=== PATIENT | male | born 1945 | race Caucasian/White ===

== ENCOUNTER → 2017-10-20 10:02 | Outpatient (CLI) | payer OTHER, SELFPAY ==
--- NOTE | 2017-10-20 10:04 | DI.RAD.S_ITS ---
PROCEDURE: XR FOOT RT MIN 3V INDICATIONS: right foot pain after fall TECHNIQUE: 3 views of the foot were acquired. COMPARISON: None. FINDINGS: Bones: No fractures or dislocations. No suspicious bony lesions. Soft tissues: No tibiotalar joint effusion. Achilles tendon appears normal. IMPRESSION: No trauma found. If there is clinical concern for presence of hidden fracture follow-up by delayed plain films or advanced imaging, such as CT or MRI, could be obtained. The normal superimposition of multiple osseous margins in this area reduces the study's ability to detect nondisplaced fractures. Dictated by: Juan Nunez M.D. on 10/20/2017 at 10:38 Approved by: Juan Nunez M.D. on 10/20/2017 at 10:39
== END ==
PROVIDERS: PCP Family Medicine; Visit Provider Family Medicine
DX: M79.671 Pain in right foot (principal)
CPT/HCPCS: 73630

== ENCOUNTER → 2018-02-04 07:11 | Outpatient (CLI) | payer OTHER, SELFPAY ==
[2018-02-04 09:11] LABS: Add Manual Diff / Slide Review NO; Basophils Percent Auto 0.8 % (0-2); Eosinophils Percent Auto 3.1 % (2-4); Hematocrit 45.2 % (41-53); Hemoglobin 15.5 g/dL (13.5-17.5); Lymphocytes Percent Auto 20.1 % (25-40); Mean Corpuscular HGB Conc 34.3 % (30-36); Mean Corpuscular Hemoglobin 31.9 PG (26-34); Monocytes Percent Auto 10.9 % (3-14); Neutrophils Absolute Auto 3300 /uL (3000-5900); Neutrophils Percent Auto 65.1 % (50-75); Platelet Count 216 X10^3/uL (150-400); Red Blood Cell Count 4.86 X10^6/uL (4.5-5.9); White Blood Cell Count 5.1 X10^3/uL (4.5-11.0)
[2018-02-04 09:40] LABS: Blood Urea Nitrogen 18 mg/dL (9-20); Calcium 9.1 mg/dL (8.4-10.2); Carbon Dioxide 29 mmol/L (22-32); Chloride 105 mmol/L (98-107); Cholesterol 142 mg/dL (140-199); Estimated Glomerular Filt Rate > 60.0 mL/min (>60); Glucose 103 mg/dL (80-110); HDL Cholesterol 63 mg/dL (40-60); HEMOLYSIS < 15 (0-50); LDL Cholesterol Calculated 65 mg/dL (<100); Potassium 4.2 mmol/L (3.4-5.1); Sodium 144 mmol/L (137-145); Triglycerides 70 mg/dL (35-150); Uric Acid 5.6 mg/dL (3.5-8.5)
[2018-02-04 09:59] LABS: Prostate Specific Antigen Scrn 6.96 ng/mL (0.1-4.0)
== END ==
PROVIDERS: PCP Family Medicine; Visit Provider Family Medicine
DX: E78.2 Mixed hyperlipidemia (principal)
CPT/HCPCS: 36415; 80048; 80061; 84443; 84550; 85025; G0103

== ENCOUNTER → 2018-08-19 12:56 | Outpatient (CLI) | payer OTHER, SELFPAY ==
--- NOTE | 2018-08-19 | DI.MRI.S_ITS ---
PROCEDURE: MR SHOULDER RT WO CON INDICATIONS: Unspecified disorder of synovium and tendon, right TECHNIQUE: Noncontrast oblique coronal T2 fast spin echo with fat saturation, oblique sagittal T1 spin echo and T2 fast spin echo with fat saturation, axial T1 spin echo and T2 fast spin echo with fat saturation through the shoulder. COMPARISON: [facility], MR, SHOULDER WITHOUT CONTRAST, 01/05/2015, 8:26. FINDINGS: Image quality: Excellent. Rotator cuff: There is full-thickness rupture of distal supraspinatus and anterior to mid fibers of the distal infraspinatus at their insertion on greater tuberosity with medial retraction of torn tendon fibers to the level of the acromioclavicular joint. Tendinosis and moderate-grade articular surface partial-thickness tear involving most posterior fibers of distal infraspinatus is seen. Tendinosis and moderate grade intrasubstance partial thickness involving distal subscapularis is seen. Sagittal images demonstrate mild to moderate supraspinatus and infraspinatus muscle atrophy. Bones and bursae: Moderate acromioclavicular joint and glenohumeral joint osteoarthritis is seen. Moderate amount of glenohumeral joint fluid and subacromial subdeltoid bursal fluid is present. Capsule and soft tissues: In the absence of intra-articular contrast, degenerative changes throughout labrum is seen. No definite focal labral tear. The glenohumeral ligaments appear intact. The long head of the biceps tendon demonstrates normal location and morphology. The rotator interval appears normal, without fibrosis. The coracohumeral ligament is normal in thickness. IMPRESSION: 1. Full-thickness rupture of distal supraspinatus and anterior to mid fibers of distal infraspinatus at their insertion on humeral head with medial retraction of torn tendon fibers to the level of acromioclavicular joint. Tendinosis and moderate grade intrasubstance partial thickness involving distal subscapularis. Mild to moderate supraspinatus and infraspinatus muscle atrophy. 2. Moderate acromioclavicular joint and glenohumeral joint osteoarthritis. No fracture or dislocation. Small to moderate amount of joint effusion and subacromial subdeltoid bursal fluid. 3. Degenerative changes throughout labrum with no definite focal labral tear. Dictated by: Ac Epps M.D. on 08/19/2018 at 14:44 Approved by: Ac Epps M.D. on 08/19/2018 at 14:55
== END ==
PROVIDERS: PCP Family Medicine; Visit Provider Orthopaedic Surgery
DX: M75.121 Complete rotator cuff tear or rupture of right shoulder, not specified as traumatic (principal); M19.011 Primary osteoarthritis, right shoulder; M25.411 Effusion, right shoulder
CPT/HCPCS: 73221

== ENCOUNTER → 2019-01-10 12:37 | Outpatient (CLI) | payer OTHER, SELFPAY ==
[2019-01-10 15:18] LABS: Prostate Specific Antigen 8.27 ng/mL (0.10-4.00)
== END ==
PROVIDERS: PCP Family Medicine; Visit Provider Urology
DX: Z12.5 Encounter for screening for malignant neoplasm of prostate (principal)
CPT/HCPCS: 36415; 84153

== ENCOUNTER → 2019-03-09 10:11 | Outpatient (CLI) | payer OTHER, SELFPAY ==
--- NOTE | 2019-03-09 10:15 | DI.RAD.S_ITS ---
PROCEDURE: XR LUMBAR SPINE 2-3V INDICATIONS: low back pain TECHNIQUE: 3 views of the lumbar spine were acquired. COMPARISON: [facility], , L-SPINE 2-3 VIEWS, 05/27/2010, 13:07. FINDINGS: Bones: 5 [id number] vertebrae are present. There is normal bony alignment. No vertebral body compression fractures. No suspicious bony lesions. Progression of disc loss at the L4-5 level, now moderate. Severe disc height loss at L5-S1, stable. Facet hypertrophy and sclerosis in the lumbar spine have mildly progressed. Soft tissues: Overlying bowel gas pattern is normal. Questionable intrarenal calcifications project over the lower pole of the right kidney.. IMPRESSION: Progressive disc and facet degeneration in the lower lumbar spine. Possible intrarenal calcifications. Correlate clinically and consider CT KUB. Dictated by: Hansa Reza M.D. on 03/09/2019 at 15:09 Approved by: Hansa Reza M.D. on 03/09/2019 at 15:11
== END ==
PROVIDERS: Family Provider Family Medicine; PCP Family Medicine; Visit Provider Nurse Practitioner Family
DX: M54.5 Low back pain (principal); M51.36 Other intervertebral disc degeneration, lumbar region; M51.37 Other intervertebral disc degeneration, lumbosacral region
CPT/HCPCS: 72100

== ENCOUNTER → 2019-03-14 16:46 | Outpatient (CLI) | payer OTHER, SELFPAY ==
--- NOTE | 2019-03-14 16:49 | DI.CT.S_ITS ---
PROCEDURE: CT KIDNEY URETER BLADDER (KUB) INDICATIONS: possible intrarenal calcification TECHNIQUE: Noncontrast 5 mm thick sections acquired from the diaphragms to the symphysis. 5 mm thick coronal and sagittal reformats were then performed. For radiation dose reduction, the following was used: automated exposure control, adjustment of mA and/or kV according to patient size. COMPARISON: [facility], CR, XR LUMBAR SPINE 2-3V, 03/09/2019, 10:18. FINDINGS: Image quality: Excellent. Lung bases: Lung bases are clear. Heart size is normal. Urinary system: No left-sided urolithiasis. Approximately 3 right renal calculi measuring up to 5 mm image 43 series 2. This may correlate with the patient's comparison study dated 03/09/19. No hydronephrosis. No perinephric stranding. Bilateral presumed renal cysts although some is technically too small and incomplete evaluation in the absence of IV contrast. No ureteral calculi identified. The bladder is partially collapsed although there is suspicion of circumferential mild bladder wall thickening however technically age-indeterminate finding. No bladder calculi Other solid organs: Presumed hepatic cysts or small hemangiomas within the left and right lobes, technically incomplete evaluation in the absence of IV contrast. Gallbladder contracted otherwise unremarkable. Pancreas is normal in contours. Spleen is normal in size. No adrenal nodules. Peritoneum and bowel: Unenhanced bowel loops demonstrate normal wall thickness and caliber. No free fluid or air. Normal appendix. Rectum grossly unremarkable. Nodes and vessels: No retroperitoneal or mesenteric adenopathy by size criteria. Aorta and inferior vena cava are normal in caliber. Abdominal wall: No ventral hernias. Pelvis: No free pelvic fluid. No inguinal hernias or adenopathy. Bones: No suspicious bony lesions. No vertebral body compression fractures. Multilevel spondylosis. IMPRESSION: Nonobstructed multiple right renal calculi measuring up to 5 mm. No left-sided urolithiasis. Circumferential mild bladder wall thickening raising possibility of cystitis although technically age-indeterminate and recommend correlation with urinalysis data. Further evaluation could be performed with cystoscopy as clinically indicated. Additional chronic and incidental findings as above. Dictated by: Sp Petersen M.D. on 03/15/2019 at 8:26 Approved by: Sp Petersen M.D. on 03/15/2019 at 8:37
== END ==
PROVIDERS: Family Provider Family Medicine; PCP Family Medicine; Visit Provider Nurse Practitioner Family
DX: R93.89 Abnormal findings on diagnostic imaging of other specified body structures (principal); N20.0 Calculus of kidney
CPT/HCPCS: 74176

== ENCOUNTER → 2019-04-29 07:41 | Outpatient (CLI) | payer OTHER, SELFPAY ==
[2019-05-03 14:51] LABS: PSA Free % 9 % (calc) (> 25); PSA, Total 9.3 ng/mL (< 4.1)
== END ==
PROVIDERS: Family Provider Family Medicine; PCP Family Medicine; Visit Provider Urology
DX: R97.20 Elevated prostate specific antigen [PSA] (principal); Z98.890 Other specified postprocedural states; Z80.42 Family history of malignant neoplasm of prostate; Z12.5 Encounter for screening for malignant neoplasm of prostate
CPT/HCPCS: 36415; 84153; 84154

== ENCOUNTER → 2019-06-21 16:40 | Outpatient (CLI) | payer MEDICARE, SELFPAY ==
[2019-06-21 17:24] LABS: Blood Urea Nitrogen 23 mg/dL (9-20); Estimated Glomerular Filt Rate > 60.0 mL/min (>60)
== END ==
PROVIDERS: Family Provider Family Medicine; PCP Family Medicine; Referring Provider Urology; Visit Provider Urology
DX: C61 Malignant neoplasm of prostate (principal)
CPT/HCPCS: 36415; 82565; 84520

== ENCOUNTER → 2019-06-24 09:20 | Outpatient (CLI) | payer MEDICARE, SELFPAY ==
--- NOTE | 2019-06-24 09:24 | DI.CT.S_ITS ---
PROCEDURE: CT ABDOMEN PELVIS W CON INDICATIONS: PROSTATE CANCER TECHNIQUE: After the administration of oral and intravenous contrast, 5 mm thick sections acquired from the diaphragms to the symphysis. 5 mm thick coronal and sagittal reformats were performed. For radiation dose reduction, the following was used: automated exposure control, adjustment of mA and/or kV according to patient size. COMPARISON: [facility], CT, CT KIDNEY URETER BLADDER (KUB), 03/14/2019, 16:57. FINDINGS: Image quality: Excellent. ABDOMEN: Lung bases: Lung bases are clear. Heart size is normal. Solid organs: Liver is normal in size and enhancement. There are several sharply demarcated water density hepatic cysts and no solid hepatic mass lesion is found. Gallbladder is abnormally wall thickened, but uniformly approximately 5 mm in wall thickness with upper limits of normal 3 mm. No calcified gallstones within the gallbladder lumen or bile ducts are found, and no biliary distention is associated.. Biliary system is non-dilated. Pancreas enhances normally. Spleen is normal in size and enhancement. No adrenal nodules. Kidneys are normal in size and enhancement, without hydronephrosis. A 4 x 7 mm previously present nonobstructive calculus within the the middle third collecting system of the right kidney is again seen, with approximate internal radiodensity of 740 Hounsfield units. Peritoneum and bowel: Stomach, small bowel, and colon loops are normal in caliber and wall thickness. No free fluid or air. Nodes and vessels: No retroperitoneal or mesenteric adenopathy. Aorta and inferior vena cava are normal in caliber. Miscellaneous: No ventral hernias. PELVIS: Genitourinary: Bladder wall thickness is normal. The prostate gland is not enlarged, a malignant appearing mass emanating from the prostate and extending into adjacent fatty soft tissues is not seen. Miscellaneous: No inguinal hernias or adenopathy. Bones: No suspicious bony lesions. No vertebral body compression fractures. IMPRESSION: 1. Prostate gland appears normal in size and margination. 2. No adenopathy is found. 3. No osseous metastatic disease is seen or suspected. 4. Uncertain etiology 4 uniform 5 mm abnormal thickening of the gallbladder wall, without internal calcified gallstone or adjacent biliary distention identified. This may reflect chronic cholecystitis. Gallbladder ejection fraction assessment may be warranted and gallbladder ultrasound likely is warranted also. The prior CT from 03/14/19 did not include contrast enhancement and the gallbladder was partially contracted at that time. Therefore, accurate comparison is not possible to the prior study. 5. Previously present 4 x 7 mm urinary tract stones within the nondistended collecting system of the right kidney as discussed above, previously noted without obstruction during CT scanning in March of last year. Dictated by: Juan Nunez M.D. on 06/24/2019 at 15:04 Approved by: Juan Nunez M.D. on 06/24/2019 at 15:12
== END ==
PROVIDERS: Family Provider Family Medicine; PCP Family Medicine; Referring Provider Urology; Visit Provider Urology
DX: C61 Malignant neoplasm of prostate (principal); K76.89 Other specified diseases of liver; N20.0 Calculus of kidney
CPT/HCPCS: 74177; Q9967

== ENCOUNTER → 2019-11-02 07:19 | Outpatient (CLI) | payer MEDICARE, SELFPAY ==
[2019-11-03 06:51] LABS: PSA Ultrasensitive <0.014 ng/mL (0.000-4.000)
== END ==
PROVIDERS: Family Provider Family Medicine; PCP Family Medicine; Referring Provider Nurse Practitioner Family; Visit Provider Nurse Practitioner Family
DX: C61 Malignant neoplasm of prostate (principal)
CPT/HCPCS: 36415; 84153

== ENCOUNTER → 2019-11-14 16:16 | Outpatient (CLI) | payer MEDICARE, SELFPAY ==
[2019-11-15 09:46] LABS: COVID19 Sendout Not Detected (Not Detect)
== END ==
PROVIDERS: Family Provider Family Medicine; PCP Family Medicine; Visit Provider Student in an Organized Health Care Education/Training Program
DX: Z01.812 Encounter for preprocedural laboratory examination (principal)
CPT/HCPCS: 87635

== ENCOUNTER → 2019-12-22 09:29 | Outpatient (CLI) | payer MEDICARE, SELFPAY ==
[2019-12-22 11:00] LABS: Prostate Specific Antigen < 0.064 ng/mL (0.10-4.00)
== END ==
PROVIDERS: Family Provider Family Medicine; PCP Family Medicine; Referring Provider Urology; Visit Provider Urology
DX: C61 Malignant neoplasm of prostate (principal)
CPT/HCPCS: 36415; 84153

== ENCOUNTER → 2020-01-17 08:12 | Outpatient (CLI) | payer MEDICARE, SELFPAY ==
[2020-01-17 09:34] LABS: Cholesterol 147 mg/dL (140-199); HDL Cholesterol 54 mg/dL (40-60); LDL Cholesterol Calculated 71 mg/dL (<100); Triglycerides 108 mg/dL (35-150)
== END ==
PROVIDERS: Family Provider Family Medicine; PCP Family Medicine; Referring Provider Family Medicine; Visit Provider Family Medicine
DX: E78.2 Mixed hyperlipidemia (principal)
CPT/HCPCS: 36415; 80061

== ENCOUNTER 2020-03-21 11:15 | Outpatient (RCR) | payer MEDICARE, SELFPAY ==
--- NOTE | 2020-02-21 09:39 | PT.OIE ---
Current Diagnoses Malignant neoplasm of prostate (02/15/20) Stress incontinence (female) (male) (02/15/20) Past Medical History (Last Reviewed 02/15/20 @ 11:08 by REMA Vivar) Chicken pox (Resolved 1951) Foot pain (Chronic 2016) Fractures (Resolved 1964) Hayfever (Chronic 1969) Hemorrhoids (Resolved 2001) Herpes (Resolved 1970) Macular pucker, left eye (Resolved 2016) Measles (Resolved 1951) Mumps (Resolved 1950) Nocturnal hypoxemia (Chronic) Obesity (BMI 30-39.9) (Chronic) Obstructive sleep apnea (Chronic) Osteoarthritis (Chronic 2009) Precancerous skin lesion (Resolved 2016) Shoulder pain (Chronic 2015) Tinnitus (Chronic 1984) Past Surgical History (Last Reviewed 02/15/20 @ 11:08 by REMA Vivar) Anesthesia (Resolved) History of eye surgery (Resolved 2016) History of hernia repair (Resolved 03/2013) History of hernia repair (Resolved 03/2012) Status post rotator cuff repair (Resolved 2015) Status post wrist surgery (Resolved 1967) Status post wrist surgery (Resolved 1994) Visit Care Team Role Provider Type Mario Miller MD Family Provider Physician Primary Care Provider Specialty: Family Practice Address: [address] [place] [address], [facility] Email: [email or web address] Michael Wesley MD Attending Provider Non-Staff Referring Provider Specialty: Medical Address: [address] [place] [address], Section of Urology, [place], [place], [facility] Email: Physical Therapy Initial Evaluation PT-OP-A Visit Information Start: 02/15/20 11:10 Freq: Status: Active Protocol: Document 02/15/20 11:12 [facility] (Rec: 02/15/20 11:13 [facility] [email or web address]) Out-Patient Physical Therapy Visit Information Visit Information Visit Type Initial Evaluation Visit Start Time 11:15 Visit Stop Time 12:00 Total Visit Minutes 45 Visit Number 1 Evaluation Information Evaluation Date 02/15/20 PT-OP-B Current Condition Start: 02/15/20 11:10 Freq: Status: Active Protocol: Document 02/15/20 11:15 [facility] (Rec: 02/15/20 11:38 [facility] [id number]) Current Condition History of Current Condition Onset Date Sep 21 2019 Current Complaints urinary stress incontinence History of Current Condition 73 year old male with urinary stress incontinence secondary to prostate cancer and robotic prostatectomy. In December he was going through 6 pads per day and he was doing a good amount of caffiene at that time. He has switched to just water and milk and eliminated the caffiene and this has significantly changed his symptoms. Leakage has been drastically improved. Currently he is leaking with big movements, bending over to pick something up he can leak , climbing activities cause leakage. Bending movements, laughing and sneezing also create leakage. He uses approximately 4 pads per day. He sleeps 6 hours and wakes up to void. He has been doing pelvic floor exercises laying down in the moring and night but hasn't done a lot in standing yet.. When he showers and puts his foot up on the step he will leak in the shower. Treatment Goals Patient/Caregiver Goals Goals include decreasing overall leakge with activity Current Functional Impairments (Reported) Functional Limitations- ADL's leakage with activities that include bending over to continuous pickling line pickler helper a object off the ground and climbing activities PT-OP-I Pelvic Floor Start: 02/15/20 11:10 Freq: Status: Active Protocol: Document 02/15/20 11:15 [facility] (Rec: 02/21/20 09:34 [facility] [email or web address]) Pelvic Floor Assessment Urine Pelvic Floor Surgery Yes Other Urinary Symptoms urinary stress incontinence following prostatectomy Leakage Size Large Leakage Cause Cough,Exercise,Lifting,Sneeze Leaks Per Day constantly with activity Voiding Frequency 6 times per day Nocturia 1-2 times Pads Used In 24 Hours 4 Urine Pad Type Maxi Pad Comments Pelvic Floor Comments Emili is able to facilitate a pelvic floor contraction however it is weak and limited to a few seconds only. He is not able to engage his pelvic floor in standing positions PT-OP-J Posture/Palpation/Skin Start: 02/15/20 11:10 Freq: Status: Active Protocol: Document 02/15/20 11:15 [facility] (Rec: 02/21/20 09:38 [facility] [email or web address]) Palpation Assessment Location suprapubic fascia Palpation Location suprapubic fascia Palpation Findings Soft Tissue Tightness Palpation Details tightness and restrictions in the suprapubic fascia. PT-OP-M Strength Start: 02/15/20 11:10 Freq: Status: Active Protocol: Document 02/15/20 11:15 [facility] (Rec: 02/21/20 09:37 [facility] [email or web address]) Trunk Strength Trunk Manual Muscle Testing Flexion 3 Fair Core Stabilization poor activation of the transverse abdominal muscles with + ASLR test, it is difficult for Emili to palpate the transverse abdominal muscle, level 1 a lower abdominal progression is difficult for Emili to perform. Hip Strength Hip Manual Muscle Testing Right Abduction 4 Good External Rotation 4 Good Left Abduction 4- Good- External Rotation 4 Good PT-OP-Q Treatments Start: 02/15/20 11:10 Freq: Status: Active Protocol: Document 02/15/20 14:03 [facility] (Rec: 02/15/20 14:04 [facility] [email or web address]) Therapeutic Exercises Sitting Exercises sit to stand Sitting Exercise Name pelvci floor contraction with sit-stand Reps/Minutes x 10 reps Other Exercises pelvic floor long holds Other Exercise Name pelvic floor long holds working up to 10 second hold time Side bilateral Reps/Minutes 10 seconds on 10 seconds off Comments pt to work supine and sitting PT-OP-T Assessment and Plan Start: 02/15/20 11:10 Freq: Status: Active Protocol: Document 02/15/20 11:15 [facility] (Rec: 02/21/20 09:19 [facility] [email or web address]) Physical Therapy Assessment Rehab Potential Rehabilitation Potential Good Evaluation Complexity Number of Personal Factors/Comorbidities 0 Number of Body Systems Impaired 1-2 Clinical Presentation at Evaluation Stable Impairments Impairments Activity Tolerance,Functional Activities,Strength Other Impairments urinary stress incontinence, pelvic floor and core weakness Goals urinary leakge with activites such as bending, squatting, climbing Impairment Urinary leakage with activities such as squatting, bending, and climbing Short Term Goal (STG) Emili is able to demonstrate pelvic floor and abdominal stabilization with proper lifting techniques to avoid undo stress to his bladder STG Duration 4 weeks Christian Education Director Goal (LTG) Emili reports overall decrease in leakage with activites such asd sit-stand, squat, and climbing. He is able to decrease pad use from 4 pads per day to 0-1 pads per day LTG Duration 8 weeks Decreased strength of the transverse abdominal musculature Impairment Decreased strength of the transverse abdominal musculature Christian Education Director Goal (LTG) Emili is able to maintain core stabilization with dynamic movements LTG Duration 8 weeks Decreased endurance of the pelvic floor Impairment Decreased endurance of the pelvic floor musculature Short Term Goal (STG) Emili is able to sustain a pelvic floor contraction in the supine position fo 10 seconds STG Duration 4 weeks Group Home Goal (LTG) Emili is able to sustain a pelvic floor contraction in standing for 10 seconds LTG Duration 8 weeks Assessment Summary Assessment Emili is a 74 year old male referred to PT today s/o prostatectomy with urinary leakage. His surgery was September 2019 for robotic prostatectomy . Emili reports he was having a considerable amount of leakage following his surgery. Per his MD's advise he cut back on all the caffiene he was consuming and this has made a really big difference for him. He is now mainly experiencing leagage in standing positions and with activities throughout the day. These activites include bending over continuous pickling line pickler helper a object off the ground, climbing, laughing and sneezing. He is using approximately 4 pads per day at this time. He reports sleeping approximately 6 hours then waking to void. He reports he has worked on pelvic floor exercises in a supine position but has not progressed to standing pelvic floor contractions. With examination today Emili is able to contract his pelvic floor but has difficulty sustaining a contraction for any length of time. He is weak in his transverse abdominal musculature. He leaks with positional changes such as sit-stand. Treatment for Emili will focus on core stability, pelvic floor endurance training and progressing his pelvic floor exercises to sitting and standing functional positions. Emili is a good candidate for PT Physical Therapy Plan Frequency and Duration Frequency of Treatment 1x/Week Duration of Treatment 8 Plan of Care Start Date 02/15/20 Plan of Care End Date 04/11/20 Therapeutic Interventions Therapeutic Interventions Home Exercise Program, Neuromuscular Re-education, Patient/Caregiver Education, Self-Care/Home Management, Therapeutic Activities, Therapeutic Exercises Modalities Biofeedback,Electric Stimulation Next Visit Focus/Plan Next Note Type Treatment Note Next Visit Plan Begin EMG biofeedback next visit, endurance strenghening of the pelvic floor, pelvic floor bracing with specific activities that cause leakage.
--- NOTE | 2020-02-21 09:40 | PT.OPPOC ---
Physical, Occupational & Speech Therapy At [facility] Current Diagnoses Malignant neoplasm of prostate (02/15/20) Stress incontinence (female) (male) (02/15/20) Visit Care Team Role Provider Type Mario Miller MD Family Provider Physician Primary Care Provider Specialty: Family Practice Address: [address] [place] [address], [id number] Email: [email or web address] Michael Wesley MD Attending Provider Non-Staff Referring Provider Specialty: Medical Address: [address] [place] [address], Section of Urology, [place], [address] Email: Plan Of Care PT-OP-T Assessment and Plan Start: 02/15/20 11:10 Freq: Status: Active Protocol: Document 02/15/20 11:15 [facility] (Rec: 02/21/20 09:19 [facility] [email or web address]) Physical Therapy Assessment Rehab Potential Rehabilitation Potential Good Evaluation Complexity Number of Personal Factors/Comorbidities 0 Number of Body Systems Impaired 1-2 Clinical Presentation at Evaluation Stable Impairments Impairments Activity Tolerance,Functional Activities,Strength Other Impairments urinary stress incontinence, pelvic floor and core weakness Goals urinary leakge with activites such as bending, squatting, climbing Impairment Urinary leakage with activities such as squatting, bending, and climbing Short Term Goal (STG) Emili is able to demonstrate pelvic floor and abdominal stabilization with proper lifting techniques to avoid undo stress to his bladder STG Duration 4 weeks Custodial Goal (LTG) Emili reports overall decrease in leakage with activities such as sit-stand, squat, and climbing. He is able to decrease pad use from 4 pads per day to 0-1 pads per day LTG Duration 8 weeks Decreased strength of the transverse abdominal musculature Impairment Decreased strength of the transverse abdominal musculature Mixer Machine Feeder Goal (LTG) Emili is able to maintain core stabilization with dynamic movements LTG Duration 8 weeks Decreased endurance of the pelvic floor Impairment Decreased endurance of the pelvic floor musculature Short Term Goal (STG) Emili is able to sustain a pelvic floor contraction in the supine position for 10 seconds STG Duration 4 weeks Custodial Goal (LTG) Emili is able to sustain a pelvic floor contraction in standing for 10 seconds LTG Duration 8 weeks Assessment Summary Assessment Emili is a 74 year old male referred to PT today s/o prostatectomy with urinary leakage. His surgery was September 2019 for robotic prostatectomy . Emili reports he was having a considerable amount of leakage following his surgery. Per his MD's advise he cut back on all the caffeine he was consuming and this has made a really big difference for him. He is now mainly experiencing leakage in standing positions and with activities throughout the day. These activities include bending over pick and shovel man a object off the ground, climbing, laughing and sneezing. He is using approximately 4 pads per day at this time. He reports sleeping approximately 6 hours then waking to void. He reports he has worked on pelvic floor exercises in a supine position but has not progressed to standing pelvic floor contractions. With examination today Emili is able to contract his pelvic floor but has difficulty sustaining a contraction for any length of time. He is weak in his transverse abdominal musculature. He leaks with positional changes such as sit-stand. Treatment for Emili will focus on core stability, pelvic floor endurance training and progressing his pelvic floor exercises to sitting and standing functional positions. Emili is a good candidate for PT Physical Therapy Plan Frequency and Duration Frequency of Treatment 1x/Week Duration of Treatment 8 Plan of Care Start Date 02/15/20 Plan of Care End Date 04/11/20 Therapeutic Interventions Therapeutic Interventions Home Exercise Program, Neuromuscular Re-education, Patient/Caregiver Education, Self-Care/Home Management, Therapeutic Activities, Therapeutic Exercises Modalities Biofeedback,Electric Stimulation Next Visit Focus/Plan Next Note Type Treatment Note Next Visit Plan Begin EMG biofeedback next visit, endurance strengthening of the pelvic floor, pelvic floor bracing with specific activities that cause leakage. Plan of Care Dates Plan of Care Start Date 02/15/20 Plan of Care End Date 04/11/20 Electronically Signed by: Arianna Berry, PT 02/21/20 [id number] Please Sign and Return: I have reviewed this Plan of Care and certify that the skilled therapy services above are required to meet the patient?s needs. Physician Signature Date Printed Name and Credentials Clinical Instructor Signature Printed Name and Credentials
--- NOTE | 2020-02-22 13:47 | PT.OTN ---
Current Diagnoses Malignant neoplasm of prostate (02/22/20) Stress incontinence (female) (male) (02/22/20) Physical Therapy Treatment Note PT-OP-A Visit Information Start: 02/15/20 11:10 Freq: Status: Active Protocol: Document 02/22/20 13:36 [facility] (Rec: 02/22/20 13:47 [facility] [id number]) Out-Patient Physical Therapy Visit Information Visit Information Visit Type Treatment Note Visit Start Time 11:30 Visit Stop Time 12:00 Total Visit Minutes 30 Visit Number 2 Evaluation Information Evaluation Date 02/15/20 PT-OP-B Current Condition Start: 02/15/20 11:10 Freq: Status: Active Protocol: Document 02/15/20 11:15 [facility] (Rec: 02/15/20 11:38 [facility] [id number]) Current Condition History of Current Condition Onset Date Sep 21 2019 Current Complaints urinary stress incontinence History of Current Condition 73 year old male with urinary stress incontinence secondary to prostate cancer and robotic prostatectomy. In December he was going through 6 pads per day and he was doing a good amount of caffiene at that time. He has switched to just water and milk and eliminated the caffiene and this has significantly changed his symptoms. Leakage has been drastically improved. Currently he is leaking with big movements, bending over to pick something up he can leak , climbing activities cause leakage. Bending movements, laughing and sneezing also create leakage. He uses approximately 4 pads per day. He sleeps 6 hours and wakes up to void. He has been doing pelvic floor exercises laying down in the moring and night but hasn't done a lot in standing yet.. When he showers and puts his foot up on the step he will leak in the shower. Treatment Goals Patient/Caregiver Goals Goals include decreasing overall leakge with activity Current Functional Impairments (Reported) Functional Limitations- ADL's leakage with activities that include bending over to cloth picker a object off the ground and climbing activities PT-OP-C Subjective Start: 02/15/20 11:10 Freq: Status: Active Protocol: Document 02/22/20 13:36 [facility] (Rec: 02/22/20 13:47 [facility] [email or web address]) OP-PT Subjective Patient Comments Patient Comments Pt reports he has felt the urge to void this week and not as much leakage PT-OP-I Pelvic Floor Start: 02/15/20 11:10 Freq: Status: Active Protocol: Document 02/15/20 11:15 [facility] (Rec: 02/21/20 09:34 [facility] [email or web address]) Pelvic Floor Assessment Urine Pelvic Floor Surgery Yes Other Urinary Symptoms urinary stress incontinence following prostatectomy Leakage Size Large Leakage Cause Cough,Exercise,Lifting,Sneeze Leaks Per Day constantly with activity Voiding Frequency 6 times per day Nocturia 1-2 times Pads Used In 24 Hours 4 Urine Pad Type Maxi Pad Comments Pelvic Floor Comments Emili is able to facilitate a pelvic floor contraction however it is weak and limited to a few seconds only. He is not able to engage his pelvic floor in standing positions PT-OP-J Posture/Palpation/Skin Start: 02/15/20 11:10 Freq: Status: Active Protocol: Document 02/15/20 11:15 [facility] (Rec: 02/21/20 09:38 [facility] [email or web address]) Palpation Assessment Location suprapubic fascia Palpation Location suprapubic fascia Palpation Findings Soft Tissue Tightness Palpation Details tightness and restrictions in the suprapubic fascia. PT-OP-M Strength Start: 02/15/20 11:10 Freq: Status: Active Protocol: Document 02/15/20 11:15 [facility] (Rec: 02/21/20 09:37 [facility] [email or web address]) Trunk Strength Trunk Manual Muscle Testing Flexion 3 Fair Core Stabilization poor activation of the transverse abdominal muscles with + ASLR test, it is difficult for Emili to palpate the transverse abdominal muscle, level 1 a lower abdominal progression is difficult for Emili to perform. Hip Strength Hip Manual Muscle Testing Right Abduction 4 Good External Rotation 4 Good Left Abduction 4- Good- External Rotation 4 Good PT-OP-Q Treatments Start: 02/15/20 11:10 Freq: Status: Active Protocol: Document 02/22/20 13:36 [facility] (Rec: 02/22/20 13:47 [facility] [email or web address]) Therapeutic Exercises Supine Exercises iliopsoas stretch Supine Exercise Name iliopsoas stretch Comments cassius test position TA with heel slide Supine Exercise Name TA with heel slide Reps/Minutes x 10 2 Supine Exercise Name TA with Opposite arm over head lift Reps/Minutes x 20 1 Supine Exercise Name TA with marches Reps/Minutes x 20 Prone Exercises sphinx pose Prone Exercise Name sphinx pose Reps/Minutes 5 reps Comments hold up to 30 seconds Sitting Exercises sit to stand Sitting Exercise Name pelvci floor contraction with sit-stand Reps/Minutes x 2 reps Standing Exercises standing squat with pelvic floor Standing Exercise Name standing squats with pelvic floor activation on the return from stand Reps/Minutes x 15 Other Exercises quick pelvic floor contractions Other Exercise Name pelvic floor quick flicks Reps/Minutes x 10 reps pelvic floor long holds Other Exercise Name pelvic floor long holds working up to 10 second hold time Side bilateral Reps/Minutes 10 seconds on 10 seconds off Comments pt to work supine and sitting PT-OP-T Assessment and Plan Start: 02/15/20 11:10 Freq: Status: Active Protocol: Document 02/22/20 13:36 [facility] (Rec: 02/22/20 13:47 [facility] [email or web address]) Physical Therapy Assessment Assessment Summary Assessment Emili is happy with his progress this past week. He feels the abdominal stabilization is helping. I progresed this today as well as added in stretches for the hip flexors and lower abdominal wall. He is wanting to try EMG biofeedback next visit Physical Therapy Plan Next Visit Focus/Plan Next Note Type Treatment Note Next Visit Plan Begin EMG biofeedback next visit and review established ther ex.
--- NOTE | 2020-03-07 14:16 | PT.OTN ---
Current Diagnoses Malignant neoplasm of prostate (03/07/20) Stress incontinence (female) (male) (03/07/20) Physical Therapy Treatment Note PT-OP-A Visit Information Start: 02/15/20 11:10 Freq: Status: Active Protocol: Document 03/07/20 11:27 [facility] (Rec: 03/07/20 11:34 [facility] [id number]) Out-Patient Physical Therapy Visit Information Visit Information Visit Type Treatment Note Visit Start Time 11:30 Visit Stop Time 12:00 Total Visit Minutes 30 Visit Number 3 PT-OP-B Current Condition Start: 02/15/20 11:10 Freq: Status: Active Protocol: Document 02/15/20 11:15 [facility] (Rec: 02/15/20 11:38 [facility] [id number]) Current Condition History of Current Condition Onset Date Sep 21 2019 Current Complaints urinary stress incontinence History of Current Condition 73 year old male with urinary stress incontinence secondary to prostate cancer and robotic prostatectomy. In December he was going through 6 pads per day and he was doing a good amount of caffiene at that time. He has switched to just water and milk and eliminated the caffiene and this has significantly changed his symptoms. Leakage has been drastically improved. Currently he is leaking with big movements, bending over to pick something up he can leak , climbing activities cause leakage. Bending movements, laughing and sneezing also create leakage. He uses approximately 4 pads per day. He sleeps 6 hours and wakes up to void. He has been doing pelvic floor exercises laying down in the moring and night but hasn't done a lot in standing yet.. When he showers and puts his foot up on the step he will leak in the shower. 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 He can sit in the car for 5 hours and not void, he can sleep for 6 hours and not leak . But when he is up and about he has more leakage. PT-OP-I Pelvic Floor Start: 02/15/20 11:10 Freq: Status: Active Protocol: Document 02/15/20 11:15 [facility] (Rec: 02/21/20 09:34 [facility] [email or web address]) Pelvic Floor Assessment Urine Pelvic Floor Surgery Yes Other Urinary Symptoms urinary stress incontinence following prostatectomy Leakage Size Large Leakage Cause Cough,Exercise,Lifting,Sneeze Leaks Per Day constantly with activity Voiding Frequency 6 times per day Nocturia 1-2 times Pads Used In 24 Hours 4 Urine Pad Type Maxi Pad Comments Pelvic Floor Comments Emili is able to facilitate a pelvic floor contraction however it is weak and limited to a few seconds only. He is not able to engage his pelvic floor in standing positions PT-OP-J Posture/Palpation/Skin Start: 02/15/20 11:10 Freq: Status: Active Protocol: Document 02/15/20 11:15 [facility] (Rec: 02/21/20 09:38 [facility] [email or web address]) Palpation Assessment Location suprapubic fascia Palpation Location suprapubic fascia Palpation Findings Soft Tissue Tightness Palpation Details tightness and restrictions in the suprapubic fascia. PT-OP-M Strength Start: 02/15/20 11:10 Freq: Status: Active Protocol: Document 02/15/20 11:15 [facility] (Rec: 02/21/20 09:37 [facility] [email or web address]) Trunk Strength Trunk Manual Muscle Testing Flexion 3 Fair Core Stabilization poor activation of the transverse abdominal muscles with + ASLR test, it is difficult for Emili to palpate the transverse abdominal muscle, level 1 a lower abdominal progression is difficult for Emili to perform. Hip Strength Hip Manual Muscle Testing Right Abduction 4 Good External Rotation 4 Good Left Abduction 4- Good- External Rotation 4 Good PT-OP-Q Treatments Start: 02/15/20 11:10 Freq: Status: Active Protocol: Document 03/07/20 11:27 [facility] (Rec: 03/07/20 11:34 [facility] [id number]) Therapeutic Exercises Supine Exercises iliopsoas stretch Supine Exercise Name iliopsoas stretch Comments cassius test position TA with heel slide Supine Exercise Name TA with heel slide Reps/Minutes x 10 2 Supine Exercise Name TA with Opposite arm over head lift Reps/Minutes x 20 1 Supine Exercise Name TA with marches Reps/Minutes x 20 Other Exercises quick pelvic floor contractions Other Exercise Name with emg biofeedback Reps/Minutes x 10 reps pelvic floor long holds Other Exercise Name 10 second hold time with 10 second relaxation Reps/Minutes x 10 reps Comments with EMG biofeedback PT-OP-T Assessment and Plan Start: 02/15/20 11:10 Freq: Status: Active Protocol: Document 03/07/20 14:10 [facility] (Rec: 03/07/20 14:16 [facility] [id number]) Physical Therapy Assessment Assessment Summary Assessment Emili had a elevated resting tone of the levator ani initially with EMG biofeedback . His contraction intensity is 36.4 with resting tone of 15.7 and maximum of 62.8. Resting tone did drop as low as 2.5 following his contractions. Endurance is still a factor with strengthening and Emili notes he works on the quick ones more at home than the long cotnractions Physical Therapy Plan Frequency and Duration Frequency of Treatment 1x/Week Duration of Treatment 8 Plan of Care Start Date 02/15/20 Plan of Care End Date 04/11/20 Next Visit Focus/Plan Next Visit Plan Continue with endurance training of the pelvic floor review hip stretches
--- NOTE | 2020-03-14 14:21 | PT.OTN ---
Current Diagnoses Malignant neoplasm of prostate (03/14/20) Stress incontinence (female) (male) (03/14/20) Physical Therapy Treatment Note PT-OP-A Visit Information Start: 02/15/20 11:10 Freq: Status: Active Protocol: Document 03/14/20 11:44 [facility] (Rec: 03/14/20 11:44 [facility] [id number]) Out-Patient Physical Therapy Visit Information Visit Information Visit Type Treatment Note Visit Start Time 11:15 Visit Stop Time 12:00 Total Visit Minutes 45 Visit Number 4 PT-OP-B Current Condition Start: 02/15/20 11:10 Freq: Status: Active Protocol: Document 02/15/20 11:15 [facility] (Rec: 02/15/20 11:38 [facility] [id number]) Current Condition History of Current Condition Onset Date Sep 21 2019 Current Complaints urinary stress incontinence History of Current Condition 73 year old male with urinary stress incontinence secondary to prostate cancer and robotic prostatectomy. In December he was going through 6 pads per day and he was doing a good amount of caffiene at that time. He has switched to just water and milk and eliminated the caffiene and this has significantly changed his symptoms. Leakage has been drastically improved. Currently he is leaking with big movements, bending over to pick something up he can leak , climbing activities cause leakage. Bending movements, laughing and sneezing also create leakage. He uses approximately 4 pads per day. He sleeps 6 hours and wakes up to void. He has been doing pelvic floor exercises laying down in the moring and night but hasn't done a lot in standing yet.. When he showers and puts his foot up on the step he will leak in the shower. Treatment Goals Patient/Caregiver Goals Goals include decreasing overall leakge with activity Current Functional Impairments (Reported) Functional Limitations- ADL's leakage with activities that include bending over to vegetable picker a object off the ground and climbing activities PT-OP-C Subjective Start: 02/15/20 11:10 Freq: Status: Active Protocol: Document 03/14/20 14:16 [facility] (Rec: 03/14/20 14:21 [facility] [id number]) OP-PT Subjective Patient Comments Patient Comments Emili reports he is doing better with his exercises and feels like he is gaining alittle more control. He does have the urge now to void and feels like he is voiding approximately 1/2 cup Patient Reported Progress Improving PT-OP-I Pelvic Floor Start: 02/15/20 11:10 Freq: Status: Active Protocol: Document 02/15/20 11:15 [facility] (Rec: 02/21/20 09:34 [facility] [email or web address]) Pelvic Floor Assessment Urine Pelvic Floor Surgery Yes Other Urinary Symptoms urinary stress incontinence following prostatectomy Leakage Size Large Leakage Cause Cough,Exercise,Lifting,Sneeze Leaks Per Day constantly with activity Voiding Frequency 6 times per day Nocturia 1-2 times Pads Used In 24 Hours 4 Urine Pad Type Maxi Pad Comments Pelvic Floor Comments Emili is able to facilitate a pelvic floor contraction however it is weak and limited to a few seconds only. He is not able to engage his pelvic floor in standing positions PT-OP-J Posture/Palpation/Skin Start: 02/15/20 11:10 Freq: Status: Active Protocol: Document 02/15/20 11:15 [facility] (Rec: 02/21/20 09:38 [facility] [email or web address]) Palpation Assessment Location suprapubic fascia Palpation Location suprapubic fascia Palpation Findings Soft Tissue Tightness Palpation Details tightness and restrictions in the suprapubic fascia. PT-OP-M Strength Start: 02/15/20 11:10 Freq: Status: Active Protocol: Document 02/15/20 11:15 [facility] (Rec: 02/21/20 09:37 [facility] [email or web address]) Trunk Strength Trunk Manual Muscle Testing Flexion 3 Fair Core Stabilization poor activation of the transverse abdominal muscles with + ASLR test, it is difficult for Emili to palpate the transverse abdominal muscle, level 1 a lower abdominal progression is difficult for Emili to perform. Hip Strength Hip Manual Muscle Testing Right Abduction 4 Good External Rotation 4 Good Left Abduction 4- Good- External Rotation 4 Good PT-OP-Q Treatments Start: 02/15/20 11:10 Freq: Status: Active Protocol: Document 03/14/20 14:16 [facility] (Rec: 03/14/20 14:21 [facility] [id number]) Therapeutic Exercises Supine Exercises level 1 b lower abdominal progression Supine Exercise Name level 1 b lower abdominal progression iliopsoas stretch Supine Exercise Name iliopsoas stretch Comments cassius test position TA with heel slide Supine Exercise Name TA with heel slide Reps/Minutes x 10 2 Supine Exercise Name TA with Opposite arm over head lift Reps/Minutes x 20 1 Supine Exercise Name TA with buck Reps/Minutes x 20 Neuro Re-Education Treatment Other Activities pelvic floor neuro re-ed Details Pelvic floor neuro re- education with EMG biofeedback Comments worked on long and quick contractions of the pelvic floor, templates for eccentric control and resting tone awareness PT-OP-T Assessment and Plan Start: 02/15/20 11:10 Freq: Status: Active Protocol: Document 03/14/20 14:16 [facility] (Rec: 03/14/20 14:21 [facility] [id number]) Physical Therapy Assessment Assessment Summary Assessment Good progress with endurance of the pelvic floor, able to increase to eccentric lowering and templates for coordiantion. Added in lower abdominal progression level 1b Physical Therapy Plan Next Visit Focus/Plan Next Note Type Treatment Note Next Visit Plan begin standing pelvic floor exercises next visit, review templates and abdominal stabilization. This will be Emili's last PT visit
--- NOTE | 2020-03-21 14:10 | PT.OTN ---
Current Diagnoses Malignant neoplasm of prostate (03/21/20) Stress incontinence (female) (male) (03/21/20) Physical Therapy Treatment Note PT-OP-A Visit Information Start: 02/15/20 11:10 Freq: Status: Active Protocol: Document 03/21/20 11:24 [facility] (Rec: 03/21/20 11:27 [facility] [id number]) Out-Patient Physical Therapy Visit Information Visit Information Visit Type Treatment Note Visit Start Time 11:20 Visit Stop Time 12:00 Total Visit Minutes 40 Visit Number 5 PT-OP-B Current Condition Start: 02/15/20 11:10 Freq: Status: Active Protocol: Document 02/15/20 11:15 [facility] (Rec: 02/15/20 11:38 [facility] [id number]) Current Condition History of Current Condition Onset Date Sep 21 2019 Current Complaints urinary stress incontinence History of Current Condition 73 year old male with urinary stress incontinence secondary to prostate cancer and robotic prostatectomy. In December he was going through 6 pads per day and he was doing a good amount of caffiene at that time. He has switched to just water and milk and eliminated the caffiene and this has significantly changed his symptoms. Leakage has been drastically improved. Currently he is leaking with big movements, bending over to pick something up he can leak , climbing activities cause leakage. Bending movements, laughing and sneezing also create leakage. He uses approximately 4 pads per day. He sleeps 6 hours and wakes up to void. He has been doing pelvic floor exercises laying down in the moring and night but hasn't done a lot in standing yet.. When he showers and puts his foot up on the step he will leak in the shower. Treatment Goals Patient/Caregiver Goals Goals include decreasing overall leakge with activity Current Functional Impairments (Reported) Functional Limitations- ADL's leakage with activities that include bending over to case picker a object off the ground and climbing activities PT-OP-C Subjective Start: 02/15/20 11:10 Freq: Status: Active Protocol: Document 03/21/20 11:24 [facility] (Rec: 03/21/20 11:27 [facility] [id number]) OP-PT Subjective Patient Comments Patient Comments Feels like he may be leaking while sitting but when he gets up to use the bathroom he isn 't wet. He has been able to use the same pad all night. It can be pretty much dry in the am, he may have a little bit of leakage when he wakes up. If he is out walking and working he will still leak. PT-OP-I Pelvic Floor Start: 02/15/20 11:10 Freq: Status: Active Protocol: Document 02/15/20 11:15 [facility] (Rec: 02/21/20 09:34 [facility] [email or web address]) Pelvic Floor Assessment Urine Pelvic Floor Surgery Yes Other Urinary Symptoms urinary stress incontinence following prostatectomy Leakage Size Large Leakage Cause Cough,Exercise,Lifting,Sneeze Leaks Per Day constantly with activity Voiding Frequency 6 times per day Nocturia 1-2 times Pads Used In 24 Hours 4 Urine Pad Type Maxi Pad Comments Pelvic Floor Comments Emili is able to facilitate a pelvic floor contraction however it is weak and limited to a few seconds only. He is not able to engage his pelvic floor in standing positions PT-OP-J Posture/Palpation/Skin Start: 02/15/20 11:10 Freq: Status: Active Protocol: Document 02/15/20 11:15 [facility] (Rec: 02/21/20 09:38 AMH [email or web address]) Palpation Assessment Location suprapubic fascia Palpation Location suprapubic fascia Palpation Findings Soft Tissue Tightness Palpation Details tightness and restrictions in the suprapubic fascia. PT-OP-M Strength Start: 02/15/20 11:10 Freq: Status: Active Protocol: Document 02/15/20 11:15 [facility] (Rec: 02/21/20 09:37 AM[facility] [email or web address]) Trunk Strength Trunk Manual Muscle Testing Flexion 3 Fair Core Stabilization poor activation of the transverse abdominal muscles with + ASLR test, it is difficult for Emili to palpate the transverse abdominal muscle, level 1 a lower abdominal progression is difficult for Emili to perform. Hip Strength Hip Manual Muscle Testing Right Abduction 4 Good External Rotation 4 Good Left Abduction 4- Good- External Rotation 4 Good PT-OP-Q Treatments Start: 02/15/20 11:10 Freq: Status: Active Protocol: Document 03/21/20 14:06 [facility] (Rec: 03/21/20 14:10 [facility] [id number]) Therapeutic Exercises Supine Exercises level 1 b lower abdominal progression Supine Exercise Name level 1 b lower abdominal progression iliopsoas stretch Supine Exercise Name iliopsoas stretch Comments cassius test position TA with heel slide Supine Exercise Name TA with heel slide Reps/Minutes x 10 2 Supine Exercise Name TA with Opposite arm over head lift Reps/Minutes x 20 1 Supine Exercise Name TA with marches Reps/Minutes x 20 Prone Exercises sphinx pose Prone Exercise Name sphinx pose Reps/Minutes 5 reps Comments hold up to 30 seconds Sitting Exercises sit to stand Sitting Exercise Name pelvci floor contraction with sit-stand Reps/Minutes x 2 reps Standing Exercises standing squat with pelvic floor Standing Exercise Name standing squats with pelvic floor activation on the return from stand Reps/Minutes x 15 Other Exercises quick pelvic floor contractions Other Exercise Name with emg biofeedback Reps/Minutes x 10 reps pelvic floor long holds Other Exercise Name 10 second hold time with 10 second relaxation Reps/Minutes x 10 reps Comments with EMG biofeedback PT-OP-T Assessment and Plan Start: 02/15/20 11:10 Freq: Status: Active Protocol: Document 03/21/20 14:06 [facility] (Rec: 03/21/20 14:10 [facility] [id number]) Physical Therapy Assessment Goals urinary leakge with activites such as bending, squatting, climbing Impairment Urinary leakage with activities such as squatting, bending, and climbing Short Term Goal (STG) Emili is able to demonstrate pelvic floor and abdominal stabilization with proper lifting techniques to avoid undo stress to his bladder This is still the most challenging for Emili but he has been educated on stabilization and bracing his pelivc floor prior to lifting. Decreased strength of the transverse abdominal musculature Impairment Decreased strength of the transverse abdominal musculature Addictions Recovery Specialist Goal (LTG) Emili is able to maintain core stabilization with dynamic movements Goal met for supine, still working on this for upright positions with his HEP Decreased endurance of the pelvic floor Impairment Decreased endurance of the pelvic floor musculature Short Term Goal (STG) Emili is able to sustain a pelvic floor contraction in the supine position for 10 seconds GOAL MET Usp Goal (LTG) Emili is able to sustain a pelvic floor contraction in standing for 10 seconds Emili can hold for 5 seconds in standing at this time Progress Towards Goals Progress Towards Goals Progressing Toward Goals Assessment Summary Assessment Emili is showing good overall progress with pelvic floor strengtheing. He notes he is waking up dry for the most part now and is doing better with sit-stand activities. He notes that standing and activities that require lifting and bending stilltend to cause leakage but is slowly improving. Emili is independent with his home program at this time and will continue to work on his exercises independently Physical Therapy Plan Discharge Physical Therapy Discharge Comments DC PT to a independent HEP
== END 2020-07-27 08:27 | disposition home or self-care (01) ==
LOC: PHYS 11:15
PROVIDERS: Family Provider Family Medicine; PCP Family Medicine; Referring Provider Urology; Visit Provider Urology
DX: C61 Malignant neoplasm of prostate (principal); N39.3 Stress incontinence (female) (male)
CPT/HCPCS: 97110; 97112; 97161

== ENCOUNTER 2020-04-14 14:01 | Emergency (ER) | payer MEDICARE, SELFPAY ==
[2020-04-14] VITALS (7 sets, daily range): BP systolic 148–180; BP diastolic 80–91; PULSE 58–76; RESP 12–25; TEMP 37.1; O2SAT 93–98; BMI 41.0
[2020-04-14] MEDS: MECLIZINE HCL 12.5 MG TABLET 25 MG PO (14:25)
[2020-04-14] MEDS: SODIUM CHLORIDE 0.9% 1,000 ML 1000 ML IV (14:25)
[2020-04-14 14:29] LABS: Add Manual Diff / Slide Review NO; Basophils Absolute Auto 100 /uL (0-100); Eosinophils Absolute Auto 300 /uL (0-450); Hematocrit 45.6 % (41-53); Hemoglobin 15.6 g/dL (13.5-17.5); Lymphocytes Absolute Auto 1700 /uL (1100-4500); Lymphocytes Percent Auto 23.9 % (25-40); Mean Corpuscular HGB Conc 34.3 % (30-36); Mean Corpuscular Hemoglobin 31.7 PG (26-34); Mean Corpuscular Volume 92.3 fL (80-100); Monocytes Absolute Auto 700 /uL (0-900); Neutrophils Absolute Auto 4400 /uL (1500-7000); Neutrophils Percent Auto 61.1 % (50-75); Platelet Count 231 X10^3/uL (150-400); Red Blood Cell Count 4.94 X10^6/uL (4.5-5.9); Red Cell Distribution Width 12.9 % (11.6-14.8); White Blood Cell Count 7.2 X10^3/uL (4.5-11.0)
[2020-04-14 14:35] LABS: Alanine Aminotransferase 26 IU/L (<50); Albumin 4.5 g/dL (3.5-5.0); Albumin Globulin Ratio 1.4 (1.0-2.8); Alkaline Phosphatase 86 U/L (38-126); Aspartate Aminotransferase 33 IU/L (17-59); BUN Creatinine Ratio 17.7 (6-22); Bilirubin Total 0.7 mg/dL (0.2-1.3); Blood Urea Nitrogen 17 mg/dL (9-20); Calcium 9.4 mg/dL (8.4-10.2); Carbon Dioxide 27 mmol/L (22-32); Chloride 104 mmol/L (98-107); Estimated Glomerular Filt Rate > 60.0 mL/min (>60); Globulin 3.2 g/dL (1.7-4.1); Glucose 105 mg/dL (80-110); HEMOLYSIS 16 (0-50); Potassium 3.9 mmol/L (3.4-5.1); Sodium 139 mmol/L (137-145); Total Protein 7.7 g/dL (6.3-8.2)
[2020-04-14 14:44] LABS: COVID19 -Nasal RAPID Negative (Negative)
[2020-04-14 14:47] LABS: Troponin I < 0.012 ng/mL (0.01-0.034)
[2020-04-14 14:59] LABS: Procalcitonin < 0.05 ng/mL (<0.5)
--- NOTE | 2020-04-14 15:48 | ED.DIZZY ---
HPI - Dizziness General Chief Complaint: Dizziness Stated Complaint: STROKE LIKE SYMPTOMS Time Seen by Provider: 04/14/20 14:10 Source: patient Mode of arrival: Wheelchair Limitations: no limitations History of Present Illness HPI Narrative: 75-year-old gentleman presents with severe vertigo. He notes that he has had an upper respiratory infection with some ear fullness over the past week feels that that is improving. Had noticed a bit of dizziness last night and over the evening seem that it was getting worse and within the last hour became so severe that she even with his eyes closed he felt like given with still spinning. He had no other neurologic complaints at this time. With his recent upper respiratory infection he did not had COVID testing however he reported no taste differences. Minor cough that has now resolved, no fevers, his chronic tinnitus seemed that it was a bit worse, no nausea, vomiting or diarrhea. He reports no palpitations or chest pain. No skin changes or lower extremity edema. Related Data Home Medications Medication Instructions Recorded Confirmed [FISH OILS ] #0 03/15/12 01/10/20 cholecalciferol (vit D3) 1,000 1 tab PO DAILY 03/09/19 01/10/20 unit-vitamin K2 (MK4) 100 mcg tablet zbtgkafq-rox-nsifu acid 0.4 1 tab PO DAILY 03/09/19 01/10/20 mg-lycopene 300 mcg-lutein 250 mcg tablet Previous Rx's Medication Instructions Recorded metaxalone 800 mg tablet 800 mg PO TID PRN #90 tab 03/09/19 acyclovir 400 mg tablet See Rx Instructions .ROUTE 01/10/20 .COMPLEX #90 tablet atorvastatin 10 mg tablet 10 mg PO HS #90 tab 01/10/20 sildenafil (pulm.hypertension) 20 20 mg PO ONCE #100 tab 01/10/20 mg tablet meclizine 25 mg PO TID PRN #30 tab 04/14/20 ondansetron 4 mg PO Q8H PRN #14 tab 04/14/20 Allergies Allergy/AdvReac Type Severity Reaction Status Date / Time No Known Drug Allergies Allergy Verified 04/14/20 14:11 Review of Systems Review of Systems Narrative: Remainder of review of systems including constitutional, ENT, cardiovascular, respiratory, GI, , musculoskeletal, skin, neurologic and psychiatric systems reviewed and are unremarkable except as noted in HPI. Patient History Medical History (Updated 04/14/20 @ 15:57 by Maty Sequeira MD) Chicken pox (1952) Foot pain (2017) Fractures (1965) Hayfever (1970) Hemorrhoids (2001) Herpes (1970) Macular pucker, left eye (2017) Measles (1952) Mumps (195) Nocturnal hypoxemia Obesity (BMI 30-39.9) Obstructive sleep apnea Osteoarthritis (2009) Precancerous skin lesion (2016) Shoulder pain (2015) Tinnitus (1984) Surgical History Anesthesia History of eye surgery (2016) History of hernia repair (03/2013) History of hernia repair (03/2012) Status post rotator cuff repair (2015) Status post wrist surgery (1967) Status post wrist surgery (1994) Family History Grandfather Cancer Father Congenital heart disease Mother Congenital heart disease Grandmother No problems noted. Grandmother No problems noted. Grandfather No problems noted. Brother No problems noted. Brother No problems noted. Social History Smoking Status: Never smoker Smoking Status: Never smoker alcohol intake frequency: holidays/special occasions only Substance Use Type: does not use Exam Narrative Exam Narrative: General: Healthy appearing, in no acute distress at rest, with movement he complains of vertigo without notable nystagmus. Able to give a complete and coherent history. Well-nourished well-developed HEENT: Moist mucous membranes, normal sclera with reactive pupils, tympanic membranes are pearly fontanez bilaterally. no nystagmus appreciated Neck: No JVD, supple Respiratory: Lungs are clear to auscultation, no wheezing no rales no rhonchi. Full and symmetrical air movement Cardiac: Regular rate and rhythm no murmurs no bruits Abdomen: Soft nontender good bowel tones, no flank pain Skin: Warm and dry, no rashes Neurologic: Grossly neurologically intact with no obvious asymmetries or abnormalities. NIHSS = 0 Extremities: No trauma, well perfused Psych: Cooperative, appropriate insight and affect Initial Vital Signs Initial Vital Signs: Vital Signs Temperature 98.7 F 04/14/20 14:08 Pulse Rate 64 04/14/20 14:08 Respiratory Rate 12 04/14/20 14:08 Blood Pressure 180/86 H 04/14/20 14:08 Pulse Oximetry 98 04/14/20 14:08 Course Orders Ordered: ED Orders 04/14/20 14:10 Complete Blood Count AUTO DIFF Stat Comprehensive Metabolic Panel Stat Procalcitonin Stat Troponin I Stat 04/14/20 14:26 COVID19 Stat Discontinued Medications Sodium Chloride (Normal Saline 0.9%) 1,000 mls @ 1,000 mls/hr IV BOLUS ONE Stop: 04/14/20 15:20 Last Infusion: 04/14/20 15:28 Dose: 0 mls/hr Documented by: Admin: 04/14/20 14:25 Dose: 1,000 mls/hr Documented by: ELISE Meclizine HCl (Meclizine Hcl 12.5 Mg Tablet) 25 mg PO NOW ONE Stop: 04/14/20 14:20 Last Admin: 04/14/20 14:25 Dose: 25 mg Documented by: ELISE Ondansetron HCl (Ondansetron 4 Mg/2 Ml Inj) 4 mg IV NOW ONE Stop: 04/14/20 15:52 Last Admin: 04/14/20 16:01 Dose: 4 mg Documented by: HEMA Vital Signs Vital signs: Vital Signs - 8 hr 04/14/20 14:08 04/14/20 14:09 04/14/20 14:10 Temperature 98.7 F Pulse Rate 64 59 L 63 Respiratory Rate 12 21 25 H Blood Pressure 180/86 H 180/86 H Pulse Oximetry 98 96 94 04/14/20 14:30 04/14/20 15:00 04/14/20 15:30 Temperature Pulse Rate 58 L 66 69 Respiratory Rate 17 18 18 Blood Pressure 176/89 H 148/83 H 162/80 H Pulse Oximetry 95 93 94 04/14/20 16:05 Temperature Pulse Rate 76 Respiratory Rate 18 Blood Pressure 167/91 H Pulse Oximetry 96 MDM - Dizziness Medical Records Attestation: I reviewed the patient's medical records. Lab Data Attestation: I reviewed the patient's lab results. Result diagrams: 04/14/20 14:10 04/14/20 14:10 Labs: Lab Results 04/14/20 04/14/20 04/14/20 Range/Units 14:10 14:10 14:10 WBC 7.2 (4.5-11.0) X10^3/uL RBC 4.94 (4.5-5.9) X10^6/uL Hgb 15.6 (13.5-17.5) g/dL Hct 45.6 (41-53) % MCV 92.3 (80-100) fL MCH 31.7 (26-34) PG MCHC 34.3 (30-36) % RDW 12.9 (11.6-14.8) % Plt Count 231 (150-400) X10^3/uL Neut % (Auto) 61.1 (50-75) % Lymph % (Auto) 23.9 L (25-40) % [place] % (Auto) 10.0 (3-14) % Eos % (Auto) 4.0 (2-4) % Baso % (Auto) 1.0 (0-2) % Neut # (Auto) 4400 (8077-8384) /uL Lymph # (Auto) 1700 (5633-5001) /uL [place] # (Auto) 700 (0-900) /uL Eos # (Auto) 300 (0-450) /uL Baso # (Auto) 100 (0-100) /uL Sodium 139 (137-145) mmol/L Potassium 3.9 (3.4-5.1) mmol/L Chloride 104 (98-107) mmol/L Carbon Dioxide 27 (22-32) mmol/L BUN 17 (9-20) mg/dL Creatinine 0.96 (0.66-1.25) mg/dL Estimated GFR > 60.0 (>60) mL/min BUN/Creatinine Ratio 17.7 (6-22) Glucose 105 (80-110) mg/dL Calcium 9.4 (8.4-10.2) mg/dL Total Bilirubin 0.7 (0.2-1.3) mg/dL AST 33 (17-59) IU/L ALT 26 (<50) IU/L Alkaline Phosphatase 86 (38-126) U/L Troponin I < 0.012 (0.01-0.034) ng/mL Total Protein 7.7 (6.3-8.2) g/dL Albumin 4.5 (3.5-5.0) g/dL Globulin 3.2 (1.7-4.1) g/dL Albumin/Globulin Ratio 1.4 (1.0-2.8) Procalcitonin < 0.05 (<0.5) ng/mL COVID-19 PCR (Negative) 04/14/20 Range/Units 14:26 WBC (4.5-11.0) X10^3/uL RBC (4.5-5.9) X10^6/uL Hgb (13.5-17.5) g/dL Hct (41-53) % MCV (80-100) fL MCH (26-34) PG MCHC (30-36) % RDW (11.6-14.8) % Plt Count (150-400) X10^3/uL Neut % (Auto) (50-75) % Lymph % (Auto) (25-40) % [place] % (Auto) (3-14) % Eos % (Auto) (2-4) % Baso % (Auto) (0-2) % Neut # (Auto) (2959-8016) /uL Lymph # (Auto) (5700-6120) /uL [place] # (Auto) (0-900) /uL Eos # (Auto) (0-450) /uL Baso # (Auto) (0-100) /uL Sodium (137-145) mmol/L Potassium (3.4-5.1) mmol/L Chloride (98-107) mmol/L Carbon Dioxide (22-32) mmol/L BUN (9-20) mg/dL Creatinine (0.66-1.25) mg/dL Estimated GFR (>60) mL/min BUN/Creatinine Ratio (6-22) Glucose (80-110) mg/dL Calcium (8.4-10.2) mg/dL Total Bilirubin (0.2-1.3) mg/dL AST (17-59) IU/L ALT (<50) IU/L Alkaline Phosphatase (38-126) U/L Troponin I (0.01-0.034) ng/mL Total Protein (6.3-8.2) g/dL Albumin (3.5-5.0) g/dL Globulin (1.7-4.1) g/dL Albumin/Globulin Ratio (1.0-2.8) Procalcitonin (<0.5) ng/mL COVID-19 PCR Negative (Negative) MDM Narrative Medical decision making narrative: 75-year-old man with progressive vertiginous symptoms for the last 24 hours following an upper respiratory infection. No signs or symptoms of stroke. Labs are reassuring. Symptoms are significantly improved after single dose of meclizine and almost entirely alleviated after an additional dose of Zofran. Findings are reviewed with him, questions answered. Prescriptions are given and he is safe for home discharge Discharge Plan Departure Patient Disposition: Home Clinical Impression: Vertigo Instructions: DI for Vertigo Activity Restrictions/Additional Instructions: Thank you for coming in today I suspect that that your vertigo is from inner ear dysfunction related to your recent cold. And please that it was somewhat improved with meclizine. I have also given you IV Zofran to help with nausea. I do not see any evidence of stroke, heart attack, tumors or life-threatening issues that could explain the acute vertigo today For the room spinning type feeling please use meclizine up to every 6 hours For actual nausea, please use Zofran/ondansetron up to every 6 hours It is okay to take these 2 together If you find that things are getting worse or you are developing new or concerning symptoms, please feel free to return for additional evaluation. I hope you feel better Prescriptions: New meclizine 25 mg tablet 25 mg PO TID PRN (Reason: vertigo) Qty: 30 RF: 0 ondansetron 4 mg tablet,disintegrating 4 mg PO Q8H PRN (Reason: dizziness) Qty: 14 RF: 0 No Action [FISH OILS ] Qty: 0 RF: 0 Centrum Silver 0.4-300-250 mg-mcg-mcg tablet 1 tab PO DAILY RF: 0 K2 Plus D3 1,000-100 unit-mcg tablet 1 tab PO DAILY RF: 0 metaxalone [Skelaxin] 800 mg tablet 800 mg PO TID PRN (Reason: muscle pain) Qty: 90 RF: 0 acyclovir 400 mg tablet See Rx Instructions .ROUTE .COMPLEX Qty: 90 RF: 3 atorvastatin [Lipitor] 10 mg tablet 10 mg PO HS Qty: 90 RF: 3 sildenafil (pulm.hypertension) 20 mg tablet 20 mg PO ONCE Qty: 100 RF: 5 Referrals: Mario Miller MD [Primary Care Provider] -
[2020-04-14] MEDS: ONDANSETRON 4 MG/2 ML INJ IV (16:01)
== END 2020-04-14 16:05 | disposition home or self-care (01) ==
PROVIDERS: Emergency Provider Emergency Medicine; Family Provider Family Medicine; PCP Family Medicine
DX: R42 Dizziness and giddiness (principal); E66.9 Obesity, unspecified; Z68.41 Body mass index [BMI] 40.0-44.9, adult
CPT/HCPCS: 80053; 84145; 84484; 85025; 87635; 93005; 93010; 96361; 96374; 99281; 99284; J2405

== ENCOUNTER → 2020-04-19 09:54 | Outpatient (CLI) | payer MEDICARE, SELFPAY ==
[2020-04-19 12:07] LABS: COVID19 -Nasal RAPID Negative (Negative)
== END ==
PROVIDERS: Family Provider Family Medicine; PCP Family Medicine; Visit Provider Nurse Practitioner Family
DX: Z01.812 Encounter for preprocedural laboratory examination (principal); Z20.828 Contact with and (suspected) exposure to other viral communicable diseases
CPT/HCPCS: 87635; C9803

== ENCOUNTER 2020-11-13 16:14 | Inpatient (IN) | payer MEDICARE, SELFPAY ==
[2020-11-13] VITALS (29 sets, daily range): BP systolic 88–201; BP diastolic 55–103; PULSE 66–156; RESP 16–53; TEMP 36.6–39.6; O2SAT 84–99; BMI 31.6
--- NOTE | 2020-11-13 | DI.RAD.S_ITS ---
PROCEDURE: XR KUB INDICATIONS: RIGHT SIDED STENT PLACEMENT TECHNIQUE: One view of the abdomen acquired. COMPARISON: None. FINDINGS: Single limited fluoroscopic image of the right abdomen demonstrates the proximal half of the right ureteral stent. It projects over the right renal shadow with contrast opacification of the right upper renal collecting system. Minimal prominence of the right renal pelvis. No scarlett hydronephrosis seen. IMPRESSION: Fluoroscopic support for right-sided ureteral stent placement. Please refer to procedure note for further details. Dictated by: Piter Nguyen M.D. on 11/13/2020 at 22:31 Approved by: Piter Nguyen M.D. on 11/13/2020 at 22:33
--- NOTE | 2020-11-13 16:46 | PC.NURSE ---
Pt writhing in pain. Requested pain medication from Dr. Chang. Verbal order for 4mg of IV morphine given
[2020-11-13] MEDS: MORPHINE 4 MG/ML INJ IV (16:47)
[2020-11-13 16:55] LABS: Add Manual Diff / Slide Review NO; Basophils Absolute Auto 100 /uL (0-100); Basophils Percent Auto 0.7 % (0-2); Eosinophils Absolute Auto 100 /uL (0-450); Eosinophils Percent Auto 1.1 % (2-4); Hematocrit 45.2 % (41-53); Hemoglobin 15.2 g/dL (13.5-17.5); Lymphocytes Absolute Auto 2400 /uL (1100-4500); Lymphocytes Percent Auto 20.1 % (25-40); Mean Corpuscular HGB Conc 33.6 % (30-36); Mean Corpuscular Hemoglobin 31.2 PG (26-34); Monocytes Absolute Auto 900 /uL (0-900); Monocytes Percent Auto 7.8 % (3-14); Neutrophils Absolute Auto 8300 /uL (1500-7000); Neutrophils Percent Auto 70.3 % (50-75); Platelet Count 238 X10^3/uL (150-400); Red Blood Cell Count 4.86 X10^6/uL (4.5-5.9); Red Cell Distribution Width 13.1 % (11.6-14.8); White Blood Cell Count 11.8 X10^3/uL (4.5-11.0)
[2020-11-13 17:06] LABS: Alanine Aminotransferase 33 IU/L (<50); Albumin 4.3 g/dL (3.5-5.0); Albumin Globulin Ratio 1.5 (1.0-2.8); Alkaline Phosphatase 70 U/L (38-126); Aspartate Aminotransferase 35 IU/L (17-59); BUN Creatinine Ratio 17.3 (6-22); Bilirubin Total 0.7 mg/dL (0.2-1.3); Blood Urea Nitrogen 19 mg/dL (9-20); Calcium 9.4 mg/dL (8.4-10.2); Carbon Dioxide 28 mmol/L (22-32); Chloride 106 mmol/L (98-107); Estimated Glomerular Filt Rate > 60.0 mL/min (>60); Globulin 2.9 g/dL (1.7-4.1); Glucose 108 mg/dL (80-110); HEMOLYSIS < 15 (0-50); Lipase 137 U/L (23-300); Potassium 3.8 mmol/L (3.4-5.1); Sodium 142 mmol/L (137-145); Total Protein 7.2 g/dL (6.3-8.2)
--- NOTE | 2020-11-13 17:22 | DI.CT.S_ITS ---
PROCEDURE: CT ABDOMEN PELVIS W CON INDICATIONS: right sided abd pain, acute onset. TECHNIQUE: After the administration of intravenous contrast, axial sections acquired from the lung bases to the pubic symphysis. Coronal and sagittal reformats were performed. For radiation dose reduction, the following was used: automated exposure control, adjustment of mA and/or kV according to patient size. COMPARISON: [facility], CT, CT ABDOMEN PELVIS W CON, 06/24/2019, 9:56. FINDINGS: Image quality: Excellent. Lung bases: Mild bibasilar atelectasis. Heart: Mild scattered atherosclerotic calcifications of the coronary arteries are noted. ABDOMEN: Liver: Stable appearance of multiple hepatic hypodensities. These likely represent cysts versus hemangiomas. Gallbladder: Unremarkable. Biliary ducts: Nondilated. Pancreas: No peripancreatic inflammatory changes. Homogeneous pancreatic enhancement. Spleen: Unremarkable. Adrenal Glands: Unremarkable. Kidneys and Ureters: Multiple right nephroliths measuring up to 6 mm. No left-sided nephrolithiasis. Bilateral renal hypodensities likely representing cysts are unchanged. There is an obstructing 7 mm proximal right ureteral stone just beyond the right ureteropelvic junction. There is associated mild hydronephrosis and mild right perinephric stranding.Remainder of the right ureter is normal in course and caliber. Left ureter is normal in course and caliber. Stomach and Bowel: Stomach, small bowel loops, and colon are unremarkable. Peritoneum: No abnormal intraperitoneal fluid. No free air. Ventral Wall: Fat containing umbilical hernia without acute inflammation. Superior to the umbilicus, there is apparent postoperative change with prominent irregular soft tissue component measuring 2.7 x 1.7 cm (axial image 40, series 2). Abdominal Nodes: No retroperitoneal or mesenteric adenopathy by size criteria. Vessels: Aorta and inferior vena cava are normal in size. Scattered atherosclerotic calcifications of the abdominal aorta and iliac vessels without aneurysmal dilatation. PELVIS: Pelvic Organs: Unremarkable. Bladder: Urinary bladder is unremarkable for degree of distension. Pelvic Nodes: No enlarged lymph nodes. Miscellaneous: No inguinal hernias are seen. Bones: Unremarkable. No acute compression fractures. IMPRESSION: 1. Right nephrolithiasis with obstructing 7 mm proximal right ureteral stone visualized just distal to the right ureteropelvic junction. There is associated mild right hydronephrosis with mild right perinephric stranding. Recommend excluding possible concurrent infectious uropathy. 2. Status post interval postoperative changes of the midline ventral abdomen above the level of the umbilicus with a nonspecific irregular soft tissue component or bring the surgical site measuring 2.7 x 1.7 cm. This is nonspecific and favored to represent scarring. Recommend correlation with physical examination. 3. Other chronic findings as above. Dictated by: Piter Nguyen M.D. on 11/13/2020 at 18:06 Approved by: Piter Nguyen M.D. on 11/13/2020 at 18:13
[2020-11-13] MEDS: SODIUM CHLORIDE 0.9% 1,000 ML 1000 ML IV (17:40)
[2020-11-13] MEDS: KETOROLAC 30 MG/ML VIAL 15 MG IV (17:40)
[2020-11-13 18:05] LABS: Lactate (Lactic Acid) 2.4 mmol/L (0.7-2.1)
--- NOTE | 2020-11-13 18:15 | ED.ABDPAIN ---
HPI - Abdominal Pain General Chief Complaint: Abdominal Pain Stated Complaint: thinks appendicitis Time Seen by Provider: 11/13/20 17:21 Source: patient and family Mode of arrival: Wheelchair Limitations: no limitations History of Present Illness HPI narrative: 75-year-old male nonsmoker with history of hyperlipidemia presents with his and the chief complaint of concern for appendicitis. He states that over the course of the day he has developed increasingly worsening right back and right lower quadrant pain. He states the pain is made worse when he moves and improves with rest. He has had chills but no measured fever prior to arrival. He has had nausea but no definite vomiting. He denies any chest pain or shortness of breath. Related Data Home Medications Medication Instructions Recorded Confirmed [FISH OILS ] See Rx Instructions .ROUTE 03/15/12 11/13/20 .COMPLEX #0 yrctloqe-ree-huyry acid 0.4 1 tab PO DAILY 03/09/19 11/13/20 mg-lycopene 300 mcg-lutein 250 mcg tablet (Centrum Silver) Previous Rx's Medication Instructions Recorded acyclovir 400 mg tablet See Rx Instructions .ROUTE 01/10/20 .COMPLEX #90 tablet atorvastatin 10 mg tablet (Lipitor) 10 mg PO HS #90 tab 01/10/20 Allergies Allergy/AdvReac Type Severity Reaction Status Date / Time No Known Drug Allergies Allergy Verified 11/13/20 16:16 Review of Systems Review of Systems Narrative: GENERAL: See HPI HEENT: Denies sinus pain, ear pain, sore throat, difficulty swallowing, dizziness. RESPIRATORY: Denies dyspnea, cough, wheezing, hemoptysis, sputum. CARDIOVASCULAR: Denies chest pain, palpitations, orthopnea, edema, GASTROINTESTINAL: See HPI : Denies dysuria, frequency, incontinence, hematuria, urinary retention. MUSCULOSKELETAL: denies weakness, joint pain, or bony pain SKIN: Denies rash, skin lesions, or other NEUROLOGIC: Denies weakness, headache, numbness, change in speech, confusion, seizures, incoordination. PSYCHIATRIC: No concerning psychosocial issues. 12 point review of systems is negative except for those stated above Patient History Medical History Chicken pox (1951) Excessive daytime sleepiness Foot pain (2016) Fractures (1964) Hayfever (1969) Hemorrhoids (2001) Herpes (1970) Macular pucker, left eye (2016) Measles (1952) Mumps (1951) Nocturnal hypoxemia Obesity (BMI 30-39.9) Obstructive sleep apnea Osteoarthritis (2010) Pigmented skin lesion Precancerous skin lesion (2016) Right nephrolithiasis Right ureteral calculus Sepsis Shoulder pain (2015) Tinnitus (1985) Surgical History Anesthesia History of eye surgery (2016) History of hernia repair (03/2013) History of hernia repair (03/2012) Status post rotator cuff repair (2015) Status post wrist surgery (1967) Status post wrist surgery (1994) Family History Grandfather Cancer Father Congenital heart disease Mother Congenital heart disease Grandmother No problems noted. Grandmother No problems noted. Grandfather No problems noted. Brother No problems noted. Brother No problems noted. Social History marital status: household members: spouse lives independently: Yes Smoking Status: Never smoker second hand exposure: No alcohol intake: never substance use type: does not use Smoking Status: Never smoker alcohol intake frequency: holidays/special occasions only Substance Use Type: does not use Exam Narrative Exam Narrative: GENERAL: [75] year old patient appears stated age. Well-developed patient, in mild distress. Obviously uncomfortable, rubbing his right side and flank HEAD: Atraumatic. Normocephalic. EYES: Pupils equal round and reactive. Extraocular motions intact. No scleral icterus. No injection or drainage. ENT: Nose without bleeding, purulent drainage. Throat without erythema, tonsillar hypertrophy or exudate. Airway patent. NECK: Trachea midline. Non tender CARDIOVASCULAR: Regular rate and rhythm without murmurs, gallops, or rubs. RESPIRATORY: Clear to auscultation. Breath sounds equal bilaterally. No wheezes, rales, or rhonchi. GASTROINTESTINAL: Abdomen soft, non-tender, nondistended. EXTREMITIES: No edema or joint tenderness. BACK: Nontender without deformity or crepitance. No flank tenderness. NEURO: AOx3. SKIN: No rash or erythema of visible areas Initial Vital Signs Initial Vital Signs: Vital Signs Temperature 97.9 F 11/13/20 16:16 Pulse Rate 66 07/13/21 16:16 Respiratory Rate 22 11/13/20 16:16 Blood Pressure 147/70 H 11/13/20 16:16 Pulse Oximetry 95 11/13/20 16:16 Course Orders Ordered: ED Orders 11/13/20 18:10 Urinalysis and Microscopic Stat 11/13/20 19:08 EKG-12 Lead Stat 11/13/20 19:21 XR chest 1V Stat 11/13/20 19:22 COVID19 - ADMIT (SMOCKER swab/PCR) Stat Complete Blood Count AUTO DIFF Stat Comprehensive Metabolic Panel Stat Lactate (Lactic Acid) Stat Lipase Stat Procalcitonin Stat 11/13/20 19:30 COVID19 -Nasal swab/Pre-Proc Stat 11/13/20 19:36 Blood Culture Stat Acetaminophen (Acetaminophen 325 Mg Tablet) 650 mg PO Q4H PRN PRN Reason: Pain, Mild (1-3) Acyclovir (Acyclovir 400 Mg Tablet) 400 mg PO DAILY HALEY Atorvastatin Calcium (Atorvastatin 20 Mg Tablet) 10 mg PO BEDTIME HALEY Last Admin: 11/14/20 00:11 Dose: 10 mg Documented by: CTRCRUZITO Diphenhydramine HCl (Diphenhydramine 50 Mg/Ml Vial) 25 mg IV Q6H PRN PRN Reason: Itching Last Admin: 11/14/20 01:03 Dose: 25 mg Documented by: PEGGY Sodium Chloride (Normal Saline 0.9%) 1,000 mls @ 100 mls/hr IV CONT HALEY Last Admin: 11/14/20 00:12 Dose: 100 mls/hr Documented by: CTRCRUZITO Morphine Sulfate (Morphine 2 Mg/Ml Inj) 2 mg IV Q2H PRN PRN Reason: Pain, Severe (7-10) Multivitamins (Multivitamin 1 Tablet) 1 tab PO DAILY HALEY Naloxone HCl (Naloxone 0.4 Mg/Ml Vial) 0.2 mg IV Q2MIN PRN PRN Reason: Opiate Reversal Ondansetron HCl (Ondansetron 4 Mg/2 Ml Inj) 4 mg IV NOW PRN PRN Reason: Nausea And Vomiting Ondansetron HCl (Ondansetron 4 Mg/2 Ml Inj) 4 mg IV Q6H PRN PRN Reason: Nausea And Vomiting Oxycodone HCl (Oxycodone Ir 5 Mg Tablet) 5 mg PO PACUNOW PRN PRN Reason: Mild or moderate pain Sennosides (Sennosides 8.6 Mg Tablet) 17.2 mg PO BEDTIME HALEY Last Admin: 11/14/20 00:11 Dose: 17.2 mg Documented by: PEGGY Discontinued Medications Fentanyl (Fentanyl 100 Mcg/2 Ml Inj) 0 mcg IV Q5MIN PRN PRN Reason: Pain, Severe (7-10) Sodium Chloride (Normal Saline 0.9%) 1,000 mls @ 1,000 mls/hr IV BOLUS ONE Stop: 11/13/20 18:20 Last Infusion: 11/13/20 18:40 Dose: 0 mls/hr Documented by: Admin: 11/13/20 17:40 Dose: 1,000 mls/hr Documented by: SIDRA Lidocaine HCl 7.1 ml/ Sodium (Chloride) 57.1 mls @ 342.6 mls/hr IV NOW ONE Stop: 11/13/20 18:44 Last Infusion: 11/13/20 19:25 Dose: 0 mls/hr Documented by: Admin: 11/13/20 19:00 Dose: 342.6 mls/hr Documented by: DANIKA Levofloxacin (Levaquin) 500 mg in 100 mls @ 100 mls/hr IV NOW ONE Stop: 11/13/20 20:16 Last Infusion: 11/13/20 20:05 Dose: 100 mls/hr Documented by: Admin: 11/13/20 19:34 Dose: 100 mls/hr Documented by: DANIKA Acetaminophen (Ofirmev) 1,000 mg in 100 mls @ 400 mls/hr IV NOW ONE Stop: 11/13/20 19:40 Last Infusion: 11/13/20 19:58 Dose: 0 mls/hr Documented by: Admin: 11/13/20 19:36 Dose: 400 mls/hr Documented by: DANIKA Lactated Ringer's (Lactated Ringers) 2,052 mls @ 684 mls/hr 30 ml/kg infuse over 3 hr (2052 ml) IV NOW ONE Stop: 11/13/20 22:25 Last Infusion: 11/13/20 20:05 Dose: 684 mls/hr Documented by: Admin: 11/13/20 19:33 Dose: 684 mls/hr Documented by: DANIKA Lactated Ringer's (Lactated Ringers) 1,000 mls @ 42 mls/hr IV CONT HALEY Last Infusion: 11/13/20 22:33 Dose: 0 mls/hr Documented by: Admin: 11/13/20 20:15 Dose: 42 mls/hr Documented by: WILLIAM Lactated Ringer's (Lactated Ringers) 1,000 mls @ 120 mls/hr IV CONT HALEY Ampicillin Sodium/Sulbactam (Sodium 3 gm/ Sodium Chloride) 100 mls @ 100 mls/hr IV NOW ONE Stop: 11/13/20 21:20 Last Admin: 11/13/20 22:06 Dose: 100 mls/hr Documented by: WILLIAM Gentamicin Sulfate 160 mg/ (Sodium Chloride) 104 mls @ 104 mls/hr IV NOW ONE Stop: 11/13/20 21:20 Last Infusion: 11/13/20 22:09 Dose: 0 mls/hr Documented by: Admin: 11/13/20 21:43 Dose: 104 mls/hr Documented by: WILLIAM Lactated Ringer's (Lactated Ringers) 500 mls @ 25 mls/hr IV CONT HALEY Lactated Ringer's (Lactated Ringers) 1,000 mls @ 125 mls/hr IV CONT HALEY Ketorolac Tromethamine (Ketorolac 30 Mg/Ml Vial) 15 mg IV NOW ONE Stop: 11/13/20 17:22 Last Admin: 11/13/20 17:40 Dose: 15 mg Documented by: SIDRA Morphine Sulfate (Morphine 4 Mg/Ml Inj) 4 mg IV NOW ONE Stop: 11/13/20 16:47 Last Admin: 11/13/20 16:47 Dose: 4 mg Documented by: ALINA Oxycodone/Acetaminophen (Oxycodone/Acetaminophen 5/325 Tablet) 1 tab PO Q4H PRN PRN Reason: Pain, Moderate (4-6) Tamsulosin HCl (Tamsulosin 0.4 Mg Capsule) 0.4 mg PO NOW ONE Stop: 11/13/20 18:59 Last Admin: 11/13/20 20:06 Dose: Not Given Documented by: DANIKA Reevaluation(s) Reevaluation #1: 1814 -patient becoming increasingly increasingly uncomfortable, stating his right flank pain is worsening, he is becoming fidgety in bed and tachycardia seems likely related to his pain Reevaluation #2: 1844 - increasing pain, developing rigors, rhythm appears atrial flutter. EKG ordered. Though initial lactate was elevated it was unclear as to the cause. Consultations Consultation #1: Dr. Frank contacted when sepsis becoming clear, he is on his way in and will activate the OR crew Vital Signs Vital signs: Vital Signs - 8 hr 11/13/20 19:15 11/13/20 19:28 11/13/20 19:30 Temperature 103.3 F H Pulse Rate 156 H 156 H 156 H Respiratory Rate 41 H 32 H 43 H Blood Pressure 169/67 H Pulse Oximetry 84 L 86 L 89 L 11/13/20 19:31 11/13/20 19:45 11/13/20 20:16 Temperature 101.2 F H 102 F H Pulse Rate 155 H 155 H 132 H Respiratory Rate 44 H 41 H 25 H Blood Pressure 152/58 H 147/55 H 123/71 Pulse Oximetry 90 L 92 99 11/13/20 20:24 11/13/20 20:45 Temperature Pulse Rate 123 H 124 H Respiratory Rate 32 H 32 H Blood Pressure 126/67 124/57 L Pulse Oximetry 99 97 MDM - Abdominal Pain Lab Data Result diagrams: 11/13/20 23:12 11/13/20 19:22 Labs: Lab Results 11/13/20 11/13/20 11/13/20 Range/Units 16:25 16:25 16:25 WBC 11.8 H (4.5-11.0) X10^3/uL RBC 4.86 (4.5-5.9) X10^6/uL Hgb 15.2 (13.5-17.5) g/dL Hct 45.2 (41-53) % MCV 93.0 (80-100) fL MCH 31.2 (26-34) PG MCHC 33.6 (30-36) % RDW 13.1 (11.6-14.8) % Plt Count 238 (150-400) X10^3/uL Neut % (Auto) 70.3 (50-75) % Lymph % (Auto) 20.1 L (25-40) % [place] % (Auto) 7.8 (3-14) % Eos % (Auto) 1.1 L (2-4) % Baso % (Auto) 0.7 (0-2) % Neut # (Auto) 8300 H (0597-1139) /uL Lymph # (Auto) 2400 (9835-3681) /uL [place] # (Auto) 900 (0-900) /uL Eos # (Auto) 100 (0-450) /uL Baso # (Auto) 100 (0-100) /uL Sodium 142 (137-145) mmol/L Potassium 3.8 (3.4-5.1) mmol/L Chloride 106 (98-107) mmol/L Carbon Dioxide 28 (22-32) mmol/L BUN 19 (9-20) mg/dL Creatinine 1.10 (0.66-1.25) mg/dL Estimated GFR > 60.0 (>60) mL/min BUN/Creatinine Ratio 17.3 (6-22) Glucose 108 (80-110) mg/dL Lactate 2.4 H (0.7-2.1) mmol/L Calcium 9.4 (8.4-10.2) mg/dL Total Bilirubin 0.7 (0.2-1.3) mg/dL AST 35 (17-59) IU/L ALT 33 (<50) IU/L Alkaline Phosphatase 70 (38-126) U/L Total Protein 7.2 (6.3-8.2) g/dL Albumin 4.3 (3.5-5.0) g/dL Globulin 2.9 (1.7-4.1) g/dL Albumin/Globulin Ratio 1.5 (1.0-2.8) Lipase 137 (23-300) U/L Procalcitonin (<0.5) ng/mL Urine Color Urine Appearance Urine pH (4.5-8.0) Ur Specific [place] (1.000-1.035) Urine Protein (Negative) Urine Glucose (UA) (Negative) g/dL Urine Ketones (NEGATIVE) Urine Occult Blood (Negative) Urine Nitrate (Negative) Urine Bilirubin (NEGATIVE) Urine Urobilinogen (0.2) E.U./dL Ur Leukocyte Esterase (NEGATIVE) Urine RBC (0-5/HPF) Urine WBC (0-5/HPF) Urine Bacteria (None) Ur Culture Indicated? Micro UA Comment SARS-CoV-2 (PCR) (Negative) 11/13/20 11/13/20 11/13/20 Range/Units 18:10 19:22 19:22 WBC 2.0 L D (4.5-11.0) X10^3/uL RBC 5.02 (4.5-5.9) X10^6/uL Hgb 15.7 (13.5-17.5) g/dL Hct 46.6 (41-53) % MCV 92.9 (80-100) fL MCH 31.3 (26-34) PG MCHC 33.7 (30-36) % RDW 12.8 (11.6-14.8) % Plt Count 156 (150-400) X10^3/uL Neut % (Auto) 92.8 H D (50-75) % Lymph % (Auto) 6.4 L (25-40) % [place] % (Auto) 0.5 L (3-14) % Eos % (Auto) 0.0 L (2-4) % Baso % (Auto) 0.3 (0-2) % Neut # (Auto) 1700 (3142-3666) /uL Lymph # (Auto) 100 L (5122-4382) /uL [place] # (Auto) 0 (0-900) /uL Eos # (Auto) 0 (0-450) /uL Baso # (Auto) 0 (0-100) /uL Sodium 139 (137-145) mmol/L Potassium 4.1 (3.4-5.1) mmol/L Chloride 107 (98-107) mmol/L Carbon Dioxide 24 (22-32) mmol/L BUN 20 (9-20) mg/dL Creatinine 1.31 H (0.66-1.25) mg/dL Estimated GFR 53.6 L (>60) mL/min BUN/Creatinine Ratio 15.3 (6-22) Glucose 87 (80-110) mg/dL Lactate (0.7-2.1) mmol/L Calcium 9.1 (8.4-10.2) mg/dL Total Bilirubin 1.0 (0.2-1.3) mg/dL AST 53 (17-59) IU/L ALT 37 (<50) IU/L Alkaline Phosphatase 104 (38-126) U/L Total Protein 7.1 (6.3-8.2) g/dL Albumin 4.2 (3.5-5.0) g/dL Globulin 2.9 (1.7-4.1) g/dL Albumin/Globulin Ratio 1.4 (1.0-2.8) Lipase 136 (23-300) U/L Procalcitonin 1.53 H (<0.5) ng/mL Urine Color Yellow Urine Appearance Clear Urine pH 7.0 (4.5-8.0) Ur Specific [place] 1.010 (1.000-1.035) Urine Protein Negative (Negative) Urine Glucose (UA) Negative (Negative) g/dL Urine Ketones Negative (NEGATIVE) Urine Occult Blood Trace-intact (Negative) Urine Nitrate Negative (Negative) Urine Bilirubin Negative (NEGATIVE) Urine Urobilinogen 0.2 (0.2) E.U./dL Ur Leukocyte Esterase Negative (NEGATIVE) Urine RBC None seen (0-5/HPF) Urine WBC None seen (0-5/HPF) Urine Bacteria None seen (None) Ur Culture Indicated? Cult not indicated Micro UA Comment Microscopic normal SARS-CoV-2 (PCR) (Negative) 11/13/20 11/13/20 11/13/20 Range/Units 19:22 19:22 19:30 WBC (4.5-11.0) X10^3/uL RBC (4.5-5.9) X10^6/uL Hgb (13.5-17.5) g/dL Hct (41-53) % MCV (80-100) fL MCH (26-34) PG MCHC (30-36) % RDW (11.6-14.8) % Plt Count (150-400) X10^3/uL Neut % (Auto) (50-75) % Lymph % (Auto) (25-40) % [place] % (Auto) (3-14) % Eos % (Auto) (2-4) % Baso % (Auto) (0-2) % Neut # (Auto) (5750-6834) /uL Lymph # (Auto) (9024-6870) /uL [place] # (Auto) (0-900) /uL Eos # (Auto) (0-450) /uL Baso # (Auto) (0-100) /uL Sodium (137-145) mmol/L Potassium (3.4-5.1) mmol/L Chloride (98-107) mmol/L Carbon Dioxide (22-32) mmol/L BUN (9-20) mg/dL Creatinine (0.66-1.25) mg/dL Estimated GFR (>60) mL/min BUN/Creatinine Ratio (6-22) Glucose (80-110) mg/dL Lactate 2.7 H (0.7-2.1) mmol/L Calcium (8.4-10.2) mg/dL Total Bilirubin (0.2-1.3) mg/dL AST (17-59) IU/L ALT (<50) IU/L Alkaline Phosphatase (38-126) U/L Total Protein (6.3-8.2) g/dL Albumin (3.5-5.0) g/dL Globulin (1.7-4.1) g/dL Albumin/Globulin Ratio (1.0-2.8) Lipase (23-300) U/L Procalcitonin (<0.5) ng/mL Urine Color Urine Appearance Urine pH (4.5-8.0) Ur Specific [place] (1.000-1.035) Urine Protein (Negative) Urine Glucose (UA) (Negative) g/dL Urine Ketones (NEGATIVE) Urine Occult Blood (Negative) Urine Nitrate (Negative) Urine Bilirubin (NEGATIVE) Urine Urobilinogen (0.2) E.U./dL Ur Leukocyte Esterase (NEGATIVE) Urine RBC (0-5/HPF) Urine WBC (0-5/HPF) Urine Bacteria (None) Ur Culture Indicated? Micro UA Comment SARS-CoV-2 (PCR) Negative Negative (Negative) Point of care testing: Urine Dip Bedside Urine Glucose Negative Bedside Urine Bilirubin - Negative Bedside Urine Ketone - Negative Urine Specific [place] 1.015 Bedside Urine Occult Blood +/- Bedside Urine pH 7.0 Bedside Urine Protein - Negative Bedside Urine Urobilinogen - Negative Bedside Urine Nitrite - Negative Bedside Urine Leukocytes - Negative Esterase Imaging Data CT scan - abdomen/pelvis: Radiologist's Impression: Chart Viewer Diagnostics DATE TYPE STATUS REF RANGE/AUTHOR Hx 11/13/20 19:21 Piter Nguyen 11/13/20 17:22 Piter Nguyen 11/13/20 00:00 Piter Nguyen 06/24/19 09:24 Enrique,Juan 03/14/19 16:49 NicolaSp 03/09/19 10:15 Hansa Reza 08/19/18 00:00 Ac Epps 10/20/17 10:04 Juan Nunez 75, M105/13/1944 ADM [place], [facility] 172.72cm 94.347kg BMI: 31.6kg/m? Search Chart No Data to Display NonFormulary Not Included in Conflicts ONSET 01/201902/25/17 02/25/17 02/25/17 07/15/17 Today 00:56 Emili Knutson 75 M [address] [id number] Scan ReportSigned Patient: Emili Knutson CMR#: [id number]: 1945cct:[id number]/Sex: 75 / MDate of Service: 11/13/20Loc: EDAccession Number: [id number] Procedure: CT abdomen pelvis w con Ordering Provider: Savannah Chang D.O. PROCEDURE: CT ABDOMEN PELVIS W CON INDICATIONS: right sided abd pain, acute onset. TECHNIQUE: After the administration of intravenous contrast, axial sections acquired from the lung bases to the pubic symphysis. Coronal and sagittal reformats were performed. For radiation dose reduction, the following was used: automated exposure control, adjustment of mA and/or kV according to patient size. COMPARISON: [facility], CT, CT ABDOMEN PELVIS W CON, 06/24/2019, 9:56. FINDINGS: Image quality: Excellent. Lung bases: Mild bibasilar atelectasis. Heart: Mild scattered atherosclerotic calcifications of the coronary arteries are noted. ABDOMEN: Liver: Stable appearance of multiple hepatic hypodensities. These likely represent cysts versus hemangiomas. Gallbladder: Unremarkable. Biliary ducts: Nondilated. Pancreas: No peripancreatic inflammatory changes. Homogeneous pancreatic enhancement. Spleen: Unremarkable. Adrenal Glands: Unremarkable. Kidneys and Ureters: Multiple right nephroliths measuring up to 6 mm. No left-sided nephrolithiasis. Bilateral renal hypodensities likely representing cysts are unchanged. There is an obstructing 7 mm proximal right ureteral stone just beyond the right ureteropelvic junction. There is associated mild hydronephrosis and mild right perinephric stranding.Remainder of the right ureter is normal in course and caliber. Left ureter is normal in course and caliber. Stomach and Bowel: Stomach, small bowel loops, and colon are unremarkable. Peritoneum: No abnormal intraperitoneal fluid. No free air. Ventral Wall: Fat containing umbilical hernia without acute inflammation. Superior to the umbilicus, there is apparent postoperative change with prominent irregular soft tissue component measuring 2.7 x 1.7 cm (axial image 40, series 2). Abdominal Nodes: No retroperitoneal or mesenteric adenopathy by size criteria. Vessels: Aorta and inferior vena cava are normal in size. Scattered atherosclerotic calcifications of the abdominal aorta and iliac vessels without aneurysmal dilatation. PELVIS: Pelvic Organs: Unremarkable. Bladder: Urinary bladder is unremarkable for degree of distension. Pelvic Nodes: No enlarged lymph nodes. Miscellaneous: No inguinal hernias are seen. Bones: Unremarkable. No acute compression fractures. IMPRESSION: 1. Right nephrolithiasis with obstructing 7 mm proximal right ureteral stone visualized just distal to the right ureteropelvic junction. There is associated mild right hydronephrosis with mild right perinephric stranding. Recommend excluding possible concurrent infectious uropathy. 2. Status post interval postoperative changes of the midline ventral abdomen above the level of the umbilicus with a nonspecific irregular soft tissue component or bring the surgical site measuring 2.7 x 1.7 cm. This is nonspecific and favored to represent scarring. Recommend correlation with physical examination. 3. Other chronic findings as above. Dictated by: Piter Nguyen M.D. on 11/13/2020 at 18:06 Approved by: Piter Nguyen M.D. on 11/13/2020 at 18:13 [facility] Narrative Medical decision making narrative: Sepsis Guideline Compliance It is my opinion that the patient DOES in fact have a likely infectious etiology for meeting Sepsis Criteria. Though his vitals and WBC met SIRS criteria there was no suspicion of infectious cause until the development of fever and rigors well into his visit around 1845 SIRS Criteria: [119 ] HR (1746), [ ] BP (time:), [22 ] RR (1616) , [11.8 ] WBC (1625) Criteria for Severe Sepsis: [x ] Lactate > 2 [ ] BP < 90 [ ] Creat > 2.0 [ ] T. Bili > 2.0 Time of Severe Sepsis / Septic Shock: [1845 ] Upon meeting sepsis criteria resuscitation according to Best Practice Statements and in accordance with this patient's safety the following was initiated: Fluids: 30mL/kg of IV crystalloid fluid ordered to be given within the first 1 hour of meeting sepsis criteria. [ ] ABW used [ x] IBW (68) used due to BMI > 30 Antibiotics: IV antimicrobials be initiated as soon as possible after recognition and within one hour for both sepsis and septic shock Critical Care Time Critical Care Time Attestation: The high probability of a clinically significant, sudden or life threatening deterioration of the [CV] system(s) required my full and direct attention, intervention and personal management. The aggregate critical care time was [45] minutes. This time is in addition to time spent performing reported procedures but includes the following: [x] Data Review and interpretation [x] Patient assessment and monitoring of vital signs [x] Documentation [x] Medication orders and management Discharge Plan Departure Patient Disposition: Admitted As Inpatient Clinical Impression: Sepsis, Acute unilateral obstructive uropathy Admit Date/Time: 11/13/20 21:07 Admit Provider: Guerita Frank
[2020-11-13 18:23] LABS: Bacteria Urine None Seen; RBC Urine None Seen (0-5/HPF); WBC Urine None Seen (0-5/HPF)
[2020-11-13 18:24] LABS: Appearance Urine UA CLEAR; Bilirubin Urine UA NEGATIVE (NEGATIVE); Color Urine UA YELLOW; Glucose Urine UA NEGATIVE (Negative); Ketones Urine UA NEGATIVE (NEGATIVE); Leukocyte Esterase Urine UA NEGATIVE (NEGATIVE); Nitrite Urine UA NEGATIVE (Negative); Occult Blood Urine UA TRACE-INTACT (Negative); Protein Urine UA NEGATIVE (Negative); Urobilinogen Urine UA 0.2 E.U./dL (0.2)
[2020-11-13 18:33] LABS: Urine Comments Microscopic Normal
--- NOTE | 2020-11-13 18:33 | PC.NURSE ---
Pt reports pain started abruptly at 1600 today in RLQ that radiates into his back. Denies history of kidney stones.
[2020-11-13] MEDS: LIDOCAINE 2% 7.1 ML in SODIUM CHLORIDE 0.9% 50 ML 342.6 ML IV (19:00)
--- NOTE | 2020-11-13 19:21 | DI.RAD.S_ITS ---
PROCEDURE: XR CHEST 1V INDICATIONS: suspected sepsis TECHNIQUE: One view of the chest was acquired. COMPARISON: None. FINDINGS: Surgical changes and devices: None. Lungs and pleura: Patchy left basilar airspace opacities. No pleural effusions or pneumothorax. Mediastinum: Mediastinal contours appear normal. Heart size is normal. Bones and chest wall: No suspicious bony lesions. Overlying soft tissues appear unremarkable. IMPRESSION: Patchy bibasilar opacities more pronounced on the left. No focal consolidations were seen on comparison CT of the abdomen and pelvis from earlier same day. However, early developing airspace disease not excluded if clinically appropriate. Recommend continued clinical surveillance and repeat imaging as needed. Dictated by: Piter Nguyen M.D. on 11/13/2020 at 21:11 Approved by: Piter Nguyen M.D. on 11/13/2020 at 21:13
[2020-11-13] MEDS: LACTATED RINGERS 684 ML IV (19:33)
[2020-11-13] MEDS: levoFLOXacin 500 MG/100 ML PIGGYBACK 100 MG IV (19:34)
[2020-11-13] MEDS: ACETAMINOPHEN IV 1,000 MG/100 ML VIAL 400 MG IV (19:36)
[2020-11-13 19:41] LABS: Add Manual Diff / Slide Review NO; Basophils Absolute Auto 0 /uL (0-100); Basophils Percent Auto 0.3 % (0-2); Eosinophils Absolute Auto 0 /uL (0-450); Hematocrit 46.6 % (41-53); Hemoglobin 15.7 g/dL (13.5-17.5); Lymphocytes Absolute Auto 100 /uL (1100-4500); Lymphocytes Percent Auto 6.4 % (25-40); Mean Corpuscular HGB Conc 33.7 % (30-36); Mean Corpuscular Hemoglobin 31.3 PG (26-34); Mean Corpuscular Volume 92.9 fL (80-100); Monocytes Absolute Auto 0 /uL (0-900); Monocytes Percent Auto 0.5 % (3-14); Neutrophils Absolute Auto 1700 /uL (1500-7000); Neutrophils Percent Auto 92.8 % (50-75); Platelet Count 156 X10^3/uL (150-400); Red Blood Cell Count 5.02 X10^6/uL (4.5-5.9); Red Cell Distribution Width 12.8 % (11.6-14.8)
[2020-11-13 19:45] LABS: Lactate (Lactic Acid) 2.7 mmol/L (0.7-2.1)
[2020-11-13 19:47] LABS: Alanine Aminotransferase 37 IU/L (<50); Albumin 4.2 g/dL (3.5-5.0); Albumin Globulin Ratio 1.4 (1.0-2.8); Alkaline Phosphatase 104 U/L (38-126); Aspartate Aminotransferase 53 IU/L (17-59); BUN Creatinine Ratio 15.3 (6-22); Blood Urea Nitrogen 20 mg/dL (9-20); Calcium 9.1 mg/dL (8.4-10.2); Carbon Dioxide 24 mmol/L (22-32); Chloride 107 mmol/L (98-107); Estimated Glomerular Filt Rate 53.6 mL/min (>60); Globulin 2.9 g/dL (1.7-4.1); Glucose 87 mg/dL (80-110); HEMOLYSIS < 15 (0-50); Lipase 136 U/L (23-300); Potassium 4.1 mmol/L (3.4-5.1); Sodium 139 mmol/L (137-145); Total Protein 7.1 g/dL (6.3-8.2)
[2020-11-13 19:55] LABS: COVID19 -Nasal RAPID Negative (Negative)
[2020-11-13 19:55] LABS: Reflexed Lactate in 2 Hours Y
[2020-11-13 20:03] LABS: Procalcitonin 1.53 ng/mL (<0.5)
[2020-11-13] MEDS: LACTATED RINGERS 1,000 ML 42 ML IV (20:15)
[2020-11-13 20:36] LABS: COVID19 - ADMIT (NP swab/PCR) Negative (Negative)
--- NOTE | 2020-11-13 20:42 | PM.PREOP ---
Pre-operative Note Interval Note History & Physical reviewed/Exam performed by Physician: Yes Changes to H&P: No
--- NOTE | 2020-11-13 20:49 | PM.CN ---
History of Present Illness Consult details Date Patient Seen: 11/13/20 Time Patient Seen: 20:49 Chief complaint: thinks appendicitis Reason for consult: Obstructing 7 mm right ureteral calculus Requesting provider: Johnie Aguilera Narrative: The patient is a 75-year-old white male biliary today when he presented with the right flank pain malaise and fatigue. [place] ED evaluation indicated by laboratory and clinical metrics a picture consistent with urosepsis. CT KUB identified a nonobstructing right intrarenal calculus measuring 4 mm and obstructing proximal right ureteral calculus measuring 7 mm. He denies a previous history of UTI or urinary calculus. 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 Meds Home Medications and Allergies Home Medications Medication Instructions Recorded Confirmed Type [FISH OILS ] See Rx Instructions .ROUTE 03/15/12 11/13/20 History .COMPLEX #0 [id number] acid 0.4 1 tab PO DAILY 03/09/19 11/13/20 History mg-lycopene 300 mcg-lutein 250 mcg tablet (Centrum Silver) acyclovir 400 mg tablet See Rx Instructions .ROUTE 01/10/20 11/13/20 Rx .COMPLEX #90 tablet atorvastatin 10 mg tablet (Lipitor) 10 mg PO HS #90 tab 01/10/20 11/13/20 Rx Allergies Allergy/AdvReac Type Severity Reaction Status Date / Time No Known Drug Allergies Allergy Verified 11/13/20 16:16 Review of Systems Review of Systems ROS: Yes All systems reviewed with the patient and are negative except as otherwise documented Exam Vital Signs (past 8 hours): - 11/13/20 16:16 11/13/20 16:50 11/13/20 17:00 Temperature 97.9 F 97.9 F Pulse Rate 66 84 88 Respiratory Rate 22 Blood Pressure 147/70 H 146/69 H 178/87 H Pulse Oximetry 95 95 95 11/13/20 17:31 11/13/20 17:46 11/13/20 17:48 Temperature Pulse Rate 119 H 113 H Respiratory Rate Blood Pressure 199/103 H 201/89 H Pulse Oximetry 93 94 11/13/20 18:00 11/13/20 18:15 11/13/20 18:30 Temperature Pulse Rate 117 H 135 H 137 H Respiratory Rate 38 H 53 H 53 H Blood Pressure 199/89 H Pulse Oximetry 94 92 91 11/13/20 18:45 11/13/20 19:00 11/13/20 19:15 Temperature Pulse Rate 131 H 140 H 156 H Respiratory Rate 42 H 44 H 41 H Blood Pressure 189/92 H 169/67 H Pulse Oximetry 91 89 L 84 L 11/13/20 19:28 11/13/20 19:30 11/13/20 19:31 Temperature 103.3 F H Pulse Rate 156 H 156 H 155 H Respiratory Rate 32 H 43 H 44 H Blood Pressure 152/58 H Pulse Oximetry 86 L 89 L 90 L 11/13/20 19:45 11/13/20 20:16 11/13/20 20:24 Temperature 101.2 F H 102 F H Pulse Rate 155 H 132 H 123 H Respiratory Rate 41 H 25 H 32 H Blood Pressure 147/55 H 123/71 126/67 Pulse Oximetry 92 99 99 11/13/20 20:45 Temperature Pulse Rate 124 H Respiratory Rate 32 H Blood Pressure 124/57 L Pulse Oximetry 97 Oxygen Delivery Method Non -Rebreather Oxygen Flow Rate 15 Narrative Exam Narrative: He is a well the and well-nourished white male in reasonable comfort resting comfortably in bed with the supplemental O2. Head/neck-sclera clear and pupils are equal round bilaterally. No visible evidence of adenopathy or JVD. Chest-equal and unlabored expansion bilaterally. Heart-sinus tachycardia. No abnormal heart tones appreciated. Abdomen-normal active bowel tones no distention or tenderness. Objective Labs Result Diagrams: 11/13/20 19:22 11/13/20 19:22 Labs: Laboratory Results - last 24 hr 11/13/20 11/13/20 11/13/20 16:25 16:25 16:25 WBC 11.8 H RBC 4.86 Hgb 15.2 Hct 45.2 MCV 93.0 MCH 31.2 MCHC 33.6 RDW 13.1 Plt Count 238 Neut % (Auto) 70.3 Lymph % (Auto) 20.1 L Andrews % (Auto) 7.8 Eos % (Auto) 1.1 L Baso % (Auto) 0.7 Neut # (Auto) 8300 H Lymph # (Auto) 2400 Andrews # (Auto) 900 Eos # (Auto) 100 Baso # (Auto) 100 Sodium 142 Potassium 3.8 Chloride 106 Carbon Dioxide 28 BUN 19 Creatinine 1.10 Estimated GFR > 60.0 BUN/Creatinine Ratio 17.3 Glucose 108 Lactate 2.4 H Calcium 9.4 Total Bilirubin 0.7 AST 35 ALT 33 Alkaline Phosphatase 70 Total Protein 7.2 Albumin 4.3 Globulin 2.9 Albumin/Globulin Ratio 1.5 Lipase 137 Procalcitonin Urine Color Urine Appearance Urine pH Ur Specific Browning Urine Protein Urine Glucose (UA) Urine Ketones Urine Occult Blood Urine Nitrate Urine Bilirubin Urine Urobilinogen Ur Leukocyte Esterase Urine RBC Urine WBC Urine Bacteria Ur Culture Indicated? Micro UA Comment SARS-CoV-2 (PCR) 11/13/20 11/13/20 11/13/20 18:10 19:22 19:22 WBC 2.0 L D RBC 5.02 Hgb 15.7 Hct 46.6 MCV 92.9 MCH 31.3 MCHC 33.7 RDW 12.8 Plt Count 156 Neut % (Auto) 92.8 H D Lymph % (Auto) 6.4 L Andrews % (Auto) 0.5 L Eos % (Auto) 0.0 L Baso % (Auto) 0.3 Neut # (Auto) 1700 Lymph # (Auto) 100 L Andrews # (Auto) 0 Eos # (Auto) 0 Baso # (Auto) 0 Sodium 139 Potassium 4.1 Chloride 107 Carbon Dioxide 24 BUN 20 Creatinine 1.31 H Estimated GFR 53.6 L BUN/Creatinine Ratio 15.3 Glucose 87 Lactate Calcium 9.1 Total Bilirubin 1.0 AST 53 ALT 37 Alkaline Phosphatase 104 Total Protein 7.1 Albumin 4.2 Globulin 2.9 Albumin/Globulin Ratio 1.4 Lipase 136 Procalcitonin 1.53 H Urine Color Yellow Urine Appearance Clear Urine pH 7.0 Ur Specific Browning 1.010 Urine Protein Negative Urine Glucose (UA) Negative Urine Ketones Negative Urine Occult Blood Trace-intact Urine Nitrate Negative Urine Bilirubin Negative Urine Urobilinogen 0.2 Ur Leukocyte Esterase Negative Urine RBC None seen Urine WBC None seen Urine Bacteria None seen Ur Culture Indicated? Cult not indicated Micro UA Comment Microscopic normal SARS-CoV-2 (PCR) 11/13/20 11/13/20 11/13/20 19:22 19:22 19:30 WBC RBC Hgb Hct MCV MCH MCHC RDW Plt Count Neut % (Auto) Lymph % (Auto) Andrews % (Auto) Eos % (Auto) Baso % (Auto) Neut # (Auto) Lymph # (Auto) Andrews # (Auto) Eos # (Auto) Baso # (Auto) Sodium Potassium Chloride Carbon Dioxide BUN Creatinine Estimated GFR BUN/Creatinine Ratio Glucose Lactate 2.7 H Calcium Total Bilirubin AST ALT Alkaline Phosphatase Total Protein Albumin Globulin Albumin/Globulin Ratio Lipase Procalcitonin Urine Color Urine Appearance Urine pH Ur Specific Browning Urine Protein Urine Glucose (UA) Urine Ketones Urine Occult Blood Urine Nitrate Urine Bilirubin Urine Urobilinogen Ur Leukocyte Esterase Urine RBC Urine WBC Urine Bacteria Ur Culture Indicated? Micro UA Comment SARS-CoV-2 (PCR) Negative Negative Assessment & Plan Assessment and plan (1) Right ureteral calculus: Status: Acute (2) Sepsis: Status: Acute (3) Right nephrolithiasis: Status: Acute Assessment & Plan narrative: Assessment: 1. Obstructing 7 mm right proximal ureteral calculus. 2. Presumed urosepsis. 3. Nonobstructing right nephrolithiasis. Plan: 1. Discussion, informed consent, and to OR for urgent cystoscopy and placement of right ureteral stent. 2. Request admission to hospitalist service for management of fluid status and urosepsis.
--- NOTE | 2020-11-13 21:23 | SUR.OPER ---
Lithotomy on padded OR bed, head on pillow, arms secured on padded arm boards at <90 degrees abduction. Legs secured in padded yellow fins stirrups.
[2020-11-13 21:26] LABS: Reflexed Lactate in 2 Hours Y
--- NOTE | 2020-11-13 21:29 | P.OP_ITS ---
Operative Date/Time/Diagnoses Time of procedure: 21:29 Pre-op diagnosis: 1. Obstructing 7 mm right proximal ureteral calculus. 2. Sepsis Post-op diagnosis: same Procedure & Clinicians Procedure: 1. Cystoscopy and right ureteral stone manipulation without removal. 2. Cystoscopy and placement right ureteral stent (7 Montenegrin by 22-32 cm multi- length). Same procedure as scheduled: Yes Indications: 1. Obstructing 7 mm right proximal ureteral calculus. 2. Sepsis Surgeon: Guerita Frank Click Yes if Unassisted: Yes Anesthesia Type: General Operative Notes Findings: 1. Urethra-normal caliber without annular stricture or lesion. 2. External sphincter-gaping. 3. Prostate-surgically absent. 4. Bladder-1+ trabeculation. Normal ureteral orifices bilaterally. Bladder neck is open. No stones or neoplasm or diverticulum seen Closure Type: not applicable Specimen(s): none sent Applied: catheter (Sixteen Montenegrin Martin catheter) and other (7 Montenegrin 22 to 32 cm multi-length ureteral stent) Estimated Blood Loss (mL): 0 Procedure in detail: The patient was positioned supine was administered general anesthesia. He was then repositioned semi lithotomy and the lower abdomen, genitalia, and groin were prepped and draped in sterile fashion. The 22 Montenegrin panendoscope was then passed a lower urinary tract with the findings as described above. Next, a 0.35 hybrid guidewire was selected and advanced into the right collecting system under direct and fluoroscopic guidance. Next a 7 Montenegrin by 22-32 cm multi-length stent was advanced over the hybrid guidewire again under direct and fluoroscopic guidance and was positioned appropriately in the right collecting system. NO RETRIEVAL LINE was left attached. The ureteral guidewire was then removed and the bladder was drained completely. The patient was then repositioned in supine, was awakened, and [facility] transport to recovery. Complications: none Post-operative Condition: stable Disposition: PACU Plan for aftercare: Acute care Hospitals consultation
[2020-11-13] MEDS: GENTAMICIN 160 MG in SODIUM CHLORIDE 0.9% 100 ML 104 ML IV (21:43)
[2020-11-13] MEDS: AMPICILLIN/SULBACTAM 3 GM 3 GM in SODIUM CHLORIDE 0.9% 100 ML IV (22:06)
--- NOTE | 2020-11-13 22:49 | SUR.PHASEI ---
REPORT GIVEN TO DAR MCCARTHY IN ACUTE CARE. PATIENT BROUGHT UP TO RM 214 ON 3L/NC IN STABLE CONDITION. BED DOWN IN LOCKED POSITION, SCD'S ON. WILLIAM AND FABIO GREETED PATIENT AND SPOUSE AT BEDSIDE FOR FACE TO FACE HANDOFF.
--- NOTE | 2020-11-13 23:24 | PM.CN ---
History of Present Illness Consult details Date Patient Seen: 11/14/20 Time Patient Seen: 00:06 Chief complaint: thinks appendicitis Narrative: The patient is a 75-year-old white maleMariolie Zenia who presented yesterday to the ED with a chief compliant of right flank pain malaise and fatigue. [place] ED evaluation indicated by laboratory and clinical metrics a picture consistent with urosepsis. CT KUB identified a nonobstructing right intrarenal calculus measuring 4 mm and obstructing proximal right ureteral calculus measuring 7 mm. He denies a previous history of UTI or urinary calculus. He has a previous history of localized Prostate Cancer BRCA2, status post robotic assisted radical prostatectomy September [address] Wesley, [facility]. In addition history of mixed lipidemia, sleep apnea in which she use a BPAP machine, patient takes atorvastatin and acyclovir for herpes. Patient takes no other medications and no other medical history. In the ED patient was afebrile with a temp of 102, tachycardic with an HR of 124, tachypneic with a RR of 32. Patient initially presented with a WBC of 11.8 which then subsequently dropped on 2nd blood draw demonstrating severe acute new onset neutropenia with WBC 2.0, absolute neutrophil count: 2, with normal platelets and MCV. Patient's chemistries were all within normal limits with mild CARLOS with a creatinine 1.31, and GFR 53.6. Patient demonstrated a mild sepsis with a lactate of 2.7, and procalcitonin 1.53, patient was found have a sofa score of 3. Suspect these are likely secondary to obstructing proximal right ureteral calculus. Patient's UA was negative no culture indicated. Upon admit to the floor patient states he is 100% better, denies chest pain, shortness of breath, nausea, vomiting, abdominal pain, fever, body aches, chills. Patient's vital signs have normalized, temp 97.9?, BP 99/59, HR 101, R 16, O2 sat 93% on 3 L nasal cannula. Patient is resting comfortably in bed in no signs of distress and is eating. Urinary catheter is draining with some bright red blood colored urine. We are consulting for Dr. Frank in relation to the mild CARLOS and sepsis. Meds Home Medications and Allergies Home Medications Medication Instructions Recorded Confirmed Type [FISH OILS ] See Rx Instructions .ROUTE 03/15/12 11/13/20 History .COMPLEX #0 lewjiweu-jhv-ojqnf acid 0.4 1 tab PO DAILY 03/09/19 11/13/20 History mg-lycopene 300 mcg-lutein 250 mcg tablet (Centrum Silver) acyclovir 400 mg tablet See Rx Instructions .ROUTE 01/10/20 11/13/20 Rx .COMPLEX #90 tablet atorvastatin 10 mg tablet (Lipitor) 10 mg PO HS #90 tab 01/10/20 11/13/20 Rx Allergies Allergy/AdvReac Type Severity Reaction Status Date / Time No Known Drug Allergies Allergy Verified 11/13/20 16:16 Review of Systems Review of Systems Narrative: Patient denies chest pain, shortness of breath, abdominal pain, nausea, vomiting, diarrhea, fever, body aches chills, weakness, numbness, tingling. Patient denies any in all signs of symptoms than otherwise documented in HPI. Exam Vital Signs (past 8 hours): - 11/13/20 16:16 11/13/20 16:50 11/13/20 17:00 Temperature 97.9 F 97.9 F Pulse Rate 66 84 88 Respiratory Rate 22 Blood Pressure 147/70 H 146/69 H 178/87 H Pulse Oximetry 95 95 95 11/13/20 17:31 11/13/20 17:46 11/13/20 17:48 Temperature Pulse Rate 119 H 113 H Respiratory Rate Blood Pressure 199/103 H 201/89 H Pulse Oximetry 93 94 11/13/20 18:00 11/13/20 18:15 11/13/20 18:30 Temperature Pulse Rate 117 H 135 H 137 H Respiratory Rate 38 H 53 H 53 H Blood Pressure 199/89 H Pulse Oximetry 94 92 91 11/13/20 18:45 11/13/20 19:00 11/13/20 19:15 Temperature Pulse Rate 131 H 140 H 156 H Respiratory Rate 42 H 44 H 41 H Blood Pressure 189/92 H 169/67 H Pulse Oximetry 91 89 L 84 L 11/13/20 19:28 11/13/20 19:30 11/13/20 19:31 Temperature 103.3 F H Pulse Rate 156 H 156 H 155 H Respiratory Rate 32 H 43 H 44 H Blood Pressure 152/58 H Pulse Oximetry 86 L 89 L 90 L 11/13/20 19:45 11/13/20 20:16 11/13/20 20:24 Temperature 101.2 F H 102 F H Pulse Rate 155 H 132 H 123 H Respiratory Rate 41 H 25 H 32 H Blood Pressure 147/55 H 123/71 126/67 Pulse Oximetry 92 99 99 11/13/20 20:45 11/13/20 21:40 11/13/20 21:45 Temperature 99.7 F H Pulse Rate 124 H 116 H 110 H Respiratory Rate 32 H 16 21 Blood Pressure 124/57 L 97/57 L 104/62 Pulse Oximetry 97 97 97 11/13/20 21:50 11/13/20 21:55 11/13/20 22:00 Temperature 99.4 F Pulse Rate 109 H 105 H 106 H Respiratory Rate 20 26 H 20 Blood Pressure 101/68 98/59 L 93/61 Pulse Oximetry 93 94 93 11/13/20 22:05 11/13/20 22:10 11/13/20 22:15 Temperature 99.0 F 99.7 F H Pulse Rate 107 H 104 H 104 H Respiratory Rate 18 24 26 H Blood Pressure 88/56 L 90/58 L 97/61 Pulse Oximetry 94 94 94 11/13/20 22:25 11/13/20 22:40 Temperature 99.0 F 98.7 F Pulse Rate 102 H 105 H Respiratory Rate 20 20 Blood Pressure 91/58 L 99/62 Pulse Oximetry 94 93 Oxygen Delivery Method Nasal Cannula Oxygen Flow Rate 3 Narrative Exam Narrative: General: Patient is a well-developed, well-nourished male, who appears younger than stated age, in no distress at this time. HEENT: Normocephalic, atraumatic, extraocular muscles intact, oral pharynx is clear and mucous membranes are moist. Neck is supple and symmetric, trachea is midline, no adenopathy, no thyroid enlargement, nontender, no masses palpated. Negative for JVD Chest: Normal AP diameter and contour without kyphoscoliosis, no nasal flaring, retractions, or tachypneic labored Lungs: Auscultation of all lung kim are clear without adventitious sounds, wheezes, rhonchi, or rales. Cardio: S1 & S2 with regular rate and rhythm without murmur, rubs, or gallops, no carotid bruit, no cardiac pulsations present. Abdomen: Is distended nontender, with 3 small incisions 1 above the umbilicus and 2 in the right lower quadrant, all without erythema, warmth, inflammation, or drainage. Bowel sounds are present in all 4 quadrants without guarding or rebound, no CVA tenderness. Catheter in place patent and draining mildly bloody urine. Musculoskeletal: Muscle strength and tone are equal within normal limits, no deformity, crepitus, effusions, cyanosis, clubbing or edema present. Full range of motion intact radial and pedal pulses are normal. Skin: Warm dry and intact without rashes, ulcerations or petechiae. Neuro: Alert and orientated x3, strength is +5/5 in all extremities, sensation to touch intact, no gross deficits noted of cranial nerves. Psych: Patient has a well-kept appearance, appropriate affect, mental status attitude thought context and judgment are appropriate for age. Objective Labs Result Diagrams: 11/13/20 19:22 11/13/20 19:22 Labs: Laboratory Results - last 24 hr 11/13/20 11/13/20 11/13/20 16:25 16:25 16:25 WBC 11.8 H RBC 4.86 Hgb 15.2 Hct 45.2 MCV 93.0 MCH 31.2 MCHC 33.6 RDW 13.1 Plt Count 238 Neut % (Auto) 70.3 Lymph % (Auto) 20.1 L Carson % (Auto) 7.8 Eos % (Auto) 1.1 L Baso % (Auto) 0.7 Neut # (Auto) 8300 H Lymph # (Auto) 2400 Carson # (Auto) 900 Eos # (Auto) 100 Baso # (Auto) 100 Sodium 142 Potassium 3.8 Chloride 106 Carbon Dioxide 28 BUN 19 Creatinine 1.10 Estimated GFR > 60.0 BUN/Creatinine Ratio 17.3 Glucose 108 Lactate 2.4 H Calcium 9.4 Total Bilirubin 0.7 AST 35 ALT 33 Alkaline Phosphatase 70 Total Protein 7.2 Albumin 4.3 Globulin 2.9 Albumin/Globulin Ratio 1.5 Lipase 137 Procalcitonin Urine Color Urine Appearance Urine pH Ur Specific Brownell Urine Protein Urine Glucose (UA) Urine Ketones Urine Occult Blood Urine Nitrate Urine Bilirubin Urine Urobilinogen Ur Leukocyte Esterase Urine RBC Urine WBC Urine Bacteria Ur Culture Indicated? Micro UA Comment SARS-CoV-2 (PCR) 11/13/20 11/13/20 11/13/20 18:10 19:22 19:22 WBC 2.0 L D RBC 5.02 Hgb 15.7 Hct 46.6 MCV 92.9 MCH 31.3 MCHC 33.7 RDW 12.8 Plt Count 156 Neut % (Auto) 92.8 H D Lymph % (Auto) 6.4 L Carson % (Auto) 0.5 L Eos % (Auto) 0.0 L Baso % (Auto) 0.3 Neut # (Auto) 1700 Lymph # (Auto) 100 L Carson # (Auto) 0 Eos # (Auto) 0 Baso # (Auto) 0 Sodium 139 Potassium 4.1 Chloride 107 Carbon Dioxide 24 BUN 20 Creatinine 1.31 H Estimated GFR 53.6 L BUN/Creatinine Ratio 15.3 Glucose 87 Lactate Calcium 9.1 Total Bilirubin 1.0 AST 53 ALT 37 Alkaline Phosphatase 104 Total Protein 7.1 Albumin 4.2 Globulin 2.9 Albumin/Globulin Ratio 1.4 Lipase 136 Procalcitonin 1.53 H Urine Color Yellow Urine Appearance Clear Urine pH 7.0 Ur Specific Brownell 1.010 Urine Protein Negative Urine Glucose (UA) Negative Urine Ketones Negative Urine Occult Blood Trace-intact Urine Nitrate Negative Urine Bilirubin Negative Urine Urobilinogen 0.2 Ur Leukocyte Esterase Negative Urine RBC None seen Urine WBC None seen Urine Bacteria None seen Ur Culture Indicated? Cult not indicated Micro UA Comment Microscopic normal SARS-CoV-2 (PCR) 11/13/20 11/13/20 11/13/20 19:22 19:22 19:30 WBC RBC Hgb Hct MCV MCH MCHC RDW Plt Count Neut % (Auto) Lymph % (Auto) Carson % (Auto) Eos % (Auto) Baso % (Auto) Neut # (Auto) Lymph # (Auto) Carson # (Auto) Eos # (Auto) Baso # (Auto) Sodium Potassium Chloride Carbon Dioxide BUN Creatinine Estimated GFR BUN/Creatinine Ratio Glucose Lactate 2.7 H Calcium Total Bilirubin AST ALT Alkaline Phosphatase Total Protein Albumin Globulin Albumin/Globulin Ratio Lipase Procalcitonin Urine Color Urine Appearance Urine pH Ur Specific Brownell Urine Protein Urine Glucose (UA) Urine Ketones Urine Occult Blood Urine Nitrate Urine Bilirubin Urine Urobilinogen Ur Leukocyte Esterase Urine RBC Urine WBC Urine Bacteria Ur Culture Indicated? Micro UA Comment SARS-CoV-2 (PCR) Negative Negative Assessment & Plan Assessment & Plan narrative: 1. Right nephrolithiasis, acute, present on admission -patient taken directly to surgery per Dr. Frank, stent placed, admitted for observation postoperatively. -to be managed and followed by Dr. Frank 2. CARLOS with mild sepsis and secondary severe acute new onset neutropenia, acute, present on admission temp of 102, tachycardic with an HR of 124, tachypneic with a RR of 32, initial WBC of 11.8, repeat WBC 2.0, absolute neutrophil count: 2, creatinine 1.31, GFR 53.6, lactate of 2.7,procalcitonin 1.53,sofa score of 3. -I suspect that the mild CARLOS and sepsis are in reaction to nephrolithiasis and will improve if not resolve in the a.m. labs. -Dr. Frank had ordered lactated Ringer's 125cc/hr. I stopped these fluids due to the elevated lactate and changed to NS 100cc/hr -Admit Observation, telemetry,vital signs Q 4hrs, activity as tolerated, monitor Martin, strict I&O, daily weights, call for urinary output less than 200 mL per shift or an SaO2 less than 92%. Diet:Normal, IV Fluids: NS @100cc/Hr -monitor CBC & CMP. 3. Mixed hyperlipidemia, acute on chronic, present on admission -control unknown continue patient's atorvastatin 4. Obesity, as evidence by BMI of 31.6, acute on chronic, present on admission -consideration will be given to dietary counseling. Thank you for the opportunity to consult on this patient. The Hospital Medicine Service will continue to follow for now, pending resolution of CARLOS and sepsis. If resolved in the a.m. patient can be discharge tomorrow from Hospitalist service consult. Code status: Full code Surrogate decision maker: Zuleika BENITEZ PCR: Negative DVT/VTE prophylaxis: As ordered per Dr. Frank Estimated length of stay: Less than 2 midnights
[2020-11-13 23:26] LABS: Add Manual Diff / Slide Review NO; Basophils Absolute Auto 0 /uL (0-100); Eosinophils Absolute Auto 0 /uL (0-450); Hematocrit 40.5 % (41-53); Hemoglobin 13.5 g/dL (13.5-17.5); Lymphocytes Absolute Auto 400 /uL (1100-4500); Lymphocytes Percent Auto 3.2 % (25-40); Mean Corpuscular HGB Conc 33.3 % (30-36); Mean Corpuscular Hemoglobin 31.1 PG (26-34); Mean Corpuscular Volume 93.3 fL (80-100); Monocytes Absolute Auto 100 /uL (0-900); Neutrophils Absolute Auto 13000 /uL (1500-7000); Neutrophils Percent Auto 95.8 % (50-75); Platelet Count 136 X10^3/uL (150-400); Red Blood Cell Count 4.34 X10^6/uL (4.5-5.9); Red Cell Distribution Width 12.6 % (11.6-14.8); White Blood Cell Count 13.5 X10^3/uL (4.5-11.0)
[2020-11-13 23:32] LABS: Lactate 2HR (Lactic Acid Rflx) 2.4 mmol/L (0.7-2.1)
[2020-11-14] VITALS (9 sets, daily range): BP systolic 96–120; BP diastolic 45–70; PULSE 85–101; RESP 16–18; TEMP 36.1–37; O2SAT 91–94
[2020-11-14] MEDS: ATORVASTATIN 20 MG TABLET 10 MG PO ×2 (00:11→20:11)
[2020-11-14] MEDS: SENNOSIDES 8.6 MG TABLET 17.2 MG PO ×2 (00:11→20:11)
[2020-11-14] MEDS: SODIUM CHLORIDE 0.9% 1,000 ML 100 ML IV ×2 (00:12→10:36)
[2020-11-14] MEDS: diphenhydrAMINE 50 MG/ML VIAL 25 MG IV (01:03)
[2020-11-14 06:14] LABS: Lactate (Lactic Acid) 2.9 mmol/L (0.7-2.1)
[2020-11-14 06:15] LABS: Alanine Aminotransferase 33 IU/L (<50); Albumin 3.2 g/dL (3.5-5.0); Albumin Globulin Ratio 1.3 (1.0-2.8); Alkaline Phosphatase 44 U/L (38-126); Aspartate Aminotransferase 40 IU/L (17-59); BUN Creatinine Ratio 14.7 (6-22); Bilirubin Total 0.8 mg/dL (0.2-1.3); Blood Urea Nitrogen 21 mg/dL (9-20); Calcium 8.5 mg/dL (8.4-10.2); Carbon Dioxide 22 mmol/L (22-32); Chloride 110 mmol/L (98-107); Estimated Glomerular Filt Rate 48.5 mL/min (>60); Globulin 2.5 g/dL (1.7-4.1); Glucose 142 mg/dL (80-110); HEMOLYSIS < 15 (0-50); Potassium 3.6 mmol/L (3.4-5.1); Sodium 135 mmol/L (137-145); Total Protein 5.7 g/dL (6.3-8.2)
[2020-11-14 06:18] LABS: Add Manual Diff / Slide Review NO; Basophils Absolute Auto 100 /uL (0-100); Basophils Percent Auto 0.5 % (0-2); Eosinophils Absolute Auto 0 /uL (0-450); Eosinophils Percent Auto 0.1 % (2-4); Hematocrit 39.9 % (41-53); Hemoglobin 13.5 g/dL (13.5-17.5); Lymphocytes Absolute Auto 300 /uL (1100-4500); Lymphocytes Percent Auto 1.1 % (25-40); Mean Corpuscular HGB Conc 33.9 % (30-36); Mean Corpuscular Hemoglobin 31.6 PG (26-34); Mean Corpuscular Volume 93.2 fL (80-100); Monocytes Absolute Auto 900 /uL (0-900); Monocytes Percent Auto 3.7 % (3-14); Neutrophils Absolute Auto 22300 /uL (1500-7000); Neutrophils Percent Auto 94.6 % (50-75); Platelet Count 129 X10^3/uL (150-400); Red Blood Cell Count 4.28 X10^6/uL (4.5-5.9); Red Cell Distribution Width 13.1 % (11.6-14.8); White Blood Cell Count 23.6 X10^3/uL (4.5-11.0)
[2020-11-14 06:53] LABS: Procalcitonin 97.1 ng/mL (<0.5)
--- NOTE | 2020-11-14 07:51 | P.PN_ITS ---
Subjective Subjective Date Patient Seen: 11/14/20 Time Patient Seen: 07:51 Interval history: Patient is postoperative day 1 status post urgent placement of right ureteral stent for obstructing 7 mm right proximal ureteral calculus and clinical and laboratory indicators consistent with sepsis. He reports an uneventful evening and denies pain. He is tolerating p.o. Exam Vital Signs (past 8 hours): - 11/14/20 00:00 11/14/20 00:56 11/14/20 03:05 Temperature 97.9 F 98.6 F Pulse Rate 101 H 96 H Respiratory Rate 16 16 Blood Pressure 99/59 L 103/69 Pulse Oximetry 93 11/14/20 05:20 Temperature 97.0 F L Pulse Rate 85 Respiratory Rate 16 Blood Pressure 96/45 L Pulse Oximetry Oxygen Delivery Method Nasal Cannula Oxygen Flow Rate 3 Narrative Exam Narrative: Well-developed and well-nourished gentleman in no acute distress. Chest-equal and unlabored expansion bilaterally. Heart-normal sinus rhythm. Abdomen-nondistended and nontender. Extremities-warm and without pallor or cyanosis. Objective Labs Result Diagrams: 11/15/20 05:49 11/15/20 05:49 Labs: Laboratory Results - last 24 hr 11/13/20 11/13/20 11/13/20 16:25 16:25 16:25 WBC 11.8 H RBC 4.86 Hgb 15.2 Hct 45.2 MCV 93.0 MCH 31.2 MCHC 33.6 RDW 13.1 Plt Count 238 Neut % (Auto) 70.3 Lymph % (Auto) 20.1 L [place] % (Auto) 7.8 Eos % (Auto) 1.1 L Baso % (Auto) 0.7 Neut # (Auto) 8300 H Lymph # (Auto) 2400 [place] # (Auto) 900 Eos # (Auto) 100 Baso # (Auto) 100 Sodium 142 Potassium 3.8 Chloride 106 Carbon Dioxide 28 BUN 19 Creatinine 1.10 Estimated GFR > 60.0 BUN/Creatinine Ratio 17.3 Glucose 108 Lactate 2.4 H Calcium 9.4 Total Bilirubin 0.7 AST 35 ALT 33 Alkaline Phosphatase 70 Total Protein 7.2 Albumin 4.3 Globulin 2.9 Albumin/Globulin Ratio 1.5 Lipase 137 Procalcitonin Urine Color Urine Appearance Urine pH Ur Specific [place] Urine Protein Urine Glucose (UA) Urine Ketones Urine Occult Blood Urine Nitrate Urine Bilirubin Urine Urobilinogen Ur Leukocyte Esterase Urine RBC Urine WBC Urine Bacteria Ur Culture Indicated? Micro UA Comment SARS-CoV-2 (PCR) 11/13/20 11/13/20 11/13/20 18:10 19:22 19:22 WBC 2.0 L D RBC 5.02 Hgb 15.7 Hct 46.6 MCV 92.9 MCH 31.3 MCHC 33.7 RDW 12.8 Plt Count 156 Neut % (Auto) 92.8 H D Lymph % (Auto) 6.4 L [place] % (Auto) 0.5 L Eos % (Auto) 0.0 L Baso % (Auto) 0.3 Neut # (Auto) 1700 Lymph # (Auto) 100 L [place] # (Auto) 0 Eos # (Auto) 0 Baso # (Auto) 0 Sodium 139 Potassium 4.1 Chloride 107 Carbon Dioxide 24 BUN 20 Creatinine 1.31 H Estimated GFR 53.6 L BUN/Creatinine Ratio 15.3 Glucose 87 Lactate Calcium 9.1 Total Bilirubin 1.0 AST 53 ALT 37 Alkaline Phosphatase 104 Total Protein 7.1 Albumin 4.2 Globulin 2.9 Albumin/Globulin Ratio 1.4 Lipase 136 Procalcitonin 1.53 H Urine Color Yellow Urine Appearance Clear Urine pH 7.0 Ur Specific [place] 1.010 Urine Protein Negative Urine Glucose (UA) Negative Urine Ketones Negative Urine Occult Blood Trace-intact Urine Nitrate Negative Urine Bilirubin Negative Urine Urobilinogen 0.2 Ur Leukocyte Esterase Negative Urine RBC None seen Urine WBC None seen Urine Bacteria None seen Ur Culture Indicated? Cult not indicated Micro UA Comment Microscopic normal SARS-CoV-2 (PCR) 11/13/20 11/13/20 11/13/20 19:22 19:22 19:30 WBC RBC Hgb Hct MCV MCH MCHC RDW Plt Count Neut % (Auto) Lymph % (Auto) [place] % (Auto) Eos % (Auto) Baso % (Auto) Neut # (Auto) Lymph # (Auto) [place] # (Auto) Eos # (Auto) Baso # (Auto) Sodium Potassium Chloride Carbon Dioxide BUN Creatinine Estimated GFR BUN/Creatinine Ratio Glucose Lactate 2.7 H Calcium Total Bilirubin AST ALT Alkaline Phosphatase Total Protein Albumin Globulin Albumin/Globulin Ratio Lipase Procalcitonin Urine Color Urine Appearance Urine pH Ur Specific [place] Urine Protein Urine Glucose (UA) Urine Ketones Urine Occult Blood Urine Nitrate Urine Bilirubin Urine Urobilinogen Ur Leukocyte Esterase Urine RBC Urine WBC Urine Bacteria Ur Culture Indicated? Micro UA Comment SARS-CoV-2 (PCR) Negative Negative 11/13/20 11/13/20 11/14/20 23:12 23:12 05:50 WBC 13.5 H D 23.6 H D RBC 4.34 L 4.28 L Hgb 13.5 13.5 Hct 40.5 L 39.9 L MCV 93.3 93.2 MCH 31.1 31.6 MCHC 33.3 33.9 RDW 12.6 13.1 Plt Count 136 L 129 L Neut % (Auto) 95.8 H 94.6 H Lymph % (Auto) 3.2 L 1.1 L [place] % (Auto) 1.0 L 3.7 Eos % (Auto) 0.0 L 0.1 L Baso % (Auto) 0.0 0.5 Neut # (Auto) 43105 H 04447 H Lymph # (Auto) 400 L 300 L [place] # (Auto) 100 900 Eos # (Auto) 0 0 Baso # (Auto) 0 100 Sodium Potassium Chloride Carbon Dioxide BUN Creatinine Estimated GFR BUN/Creatinine Ratio Glucose Lactate 2.4 H Calcium Total Bilirubin AST ALT Alkaline Phosphatase Total Protein Albumin Globulin Albumin/Globulin Ratio Lipase Procalcitonin Urine Color Urine Appearance Urine pH Ur Specific [place] Urine Protein Urine Glucose (UA) Urine Ketones Urine Occult Blood Urine Nitrate Urine Bilirubin Urine Urobilinogen Ur Leukocyte Esterase Urine RBC Urine WBC Urine Bacteria Ur Culture Indicated? Micro UA Comment SARS-CoV-2 (PCR) 11/14/20 11/14/20 11/14/20 05:50 05:50 05:50 WBC RBC Hgb Hct MCV MCH MCHC RDW Plt Count Neut % (Auto) Lymph % (Auto) [place] % (Auto) Eos % (Auto) Baso % (Auto) Neut # (Auto) Lymph # (Auto) [place] # (Auto) Eos # (Auto) Baso # (Auto) Sodium 135 L Potassium 3.6 Chloride 110 H Carbon Dioxide 22 BUN 21 H Creatinine 1.43 H Estimated GFR 48.5 L BUN/Creatinine Ratio 14.7 Glucose 142 H Lactate 2.9 H Calcium 8.5 Total Bilirubin 0.8 AST 40 ALT 33 Alkaline Phosphatase 44 D Total Protein 5.7 L Albumin 3.2 L Globulin 2.5 Albumin/Globulin Ratio 1.3 Lipase Procalcitonin 97.1 H Urine Color Urine Appearance Urine pH Ur Specific [place] Urine Protein Urine Glucose (UA) Urine Ketones Urine Occult Blood Urine Nitrate Urine Bilirubin Urine Urobilinogen Ur Leukocyte Esterase Urine RBC Urine WBC Urine Bacteria Ur Culture Indicated? Micro UA Comment SARS-CoV-2 (PCR) [facility] Medical History Chicken pox (195) Excessive daytime sleepiness Foot pain (2016) Fractures (1965) Hayfever (1970) Hemorrhoids (2001) Herpes (1970) Macular pucker, left eye (2016) Measles (2) Mumps (1950) Nocturnal hypoxemia Obesity (BMI 30-39.9) Obstructive sleep apnea Osteoarthritis (2009) Pigmented skin lesion Precancerous skin lesion (2016) Right nephrolithiasis Right ureteral calculus Sepsis Shoulder pain (2015) Tinnitus (1984) Surgical History Anesthesia History of eye surgery (2016) History of hernia repair (03/2013) History of hernia repair (03/2012) Status post rotator cuff repair (2015) Status post wrist surgery (1967) Status post wrist surgery (1994) Family History Grandfather Cancer Father Congenital heart disease Mother Congenital heart disease Grandmother No problems noted. Grandmother No problems noted. Grandfather No problems noted. Brother No problems noted. Brother No problems noted. Social History marital status: household members: spouse lives independently: Yes Smoking Status: Never smoker second hand exposure: No alcohol intake: never substance use type: does not use Assessment & Plan Assessment & Plan narrative: Assessment: 1. Stable status post placement right ureteral stent for obstructing 7 mm right proximal ureteral calculus. 2. Sepsis. Blood cultures are pending. Urinalysis negative on presentation. Plan: 1. Begin Cipro 500 mg p.o. b.i.d. and await final culture reports.
[2020-11-14 07:59] LABS: Reflexed Lactate in 2 Hours Y
[2020-11-14] MEDS: MEROPENEM 1 GM in SODIUM CHLORIDE 0.9% 100 ML 200 ML IV ×2 (08:25→20:12)
[2020-11-14] MEDS: ACYCLOVIR 400 MG TABLET PO (08:25)
[2020-11-14] MEDS: MULTIVITAMIN 1 TABLET 1 TAB PO (08:26)
[2020-11-14 08:27] LABS: Acinetobacter baumannii Not Detected (Not Detect); Candida albicans Not Detected (Not Detect); Candida glabrata Not Detected (Not Detect); Candida krusei Not Detected (Not Detect); Candida parapsilosis Not Detected (Not Detect); Candida tropicalis Not Detected (Not Detect); E. coli Detected (Not Detect); Enterobacter cloacae complex Not Detected (Not Detect); Enterobacteriaceae species Detected (Not Detect); Enterococcus species Not Detected (Not Detect); Haemophilus influenzae Not Detected (Not Detect); KPC (carbapenem-resist gene) Not Detected (Not Detect); Listeria monocytogenes Not Detected (Not Detect); Methicillin-resistant gene Not Detected (Not Detect); Neisseria meningitidis Not Detected (Not Detect); Proteus species Not Detected (Not Detect); Pseudomonas aeruginosa Not Detected (Not Detect); Serratia marcescens Not Detected (Not Detect); Staphylococcus species Not Detected (Not Detect); Streptococcus agalactiae (Gr B Not Detected (Not Detect); Streptococcus pneumonia Not Detected (Not Detect); Streptococcus pyogenes (Gr A) Not Detected (Not Detect); Streptococcus species Not Detected (Not Detect); Vancomycin-rest genes A/B Not Detected (Not Detect)
[2020-11-14 08:31] LABS: Culture Indicated Urine Specimen Cultured
[2020-11-14 09:41] LABS: Add Manual Diff / Slide Review NO; Basophils Absolute Auto 100 /uL (0-100); Basophils Percent Auto 0.2 % (0-2); Eosinophils Absolute Auto 0 /uL (0-450); Hematocrit 40.2 % (41-53); Hemoglobin 13.5 g/dL (13.5-17.5); Lymphocytes Absolute Auto 400 /uL (1100-4500); Lymphocytes Percent Auto 1.4 % (25-40); Mean Corpuscular HGB Conc 33.5 % (30-36); Mean Corpuscular Hemoglobin 31.3 PG (26-34); Mean Corpuscular Volume 93.5 fL (80-100); Monocytes Absolute Auto 1100 /uL (0-900); Monocytes Percent Auto 3.9 % (3-14); Neutrophils Absolute Auto 26900 /uL (1500-7000); Neutrophils Percent Auto 94.5 % (50-75); Platelet Count 132 X10^3/uL (150-400); Red Cell Distribution Width 13.4 % (11.6-14.8); White Blood Cell Count 28.4 X10^3/uL (4.5-11.0)
[2020-11-14 10:02] LABS: Lactate 2HR (Lactic Acid Rflx) 3.9 mmol/L (0.7-2.1)
--- NOTE | 2020-11-14 13:16 | PM.PN.1 ---
Subjective Subjective Date Patient Seen: 11/14/20 Time Patient Seen: 13:16 Interval history: Brief update note: Patient feels well this morning. No pain, shortness of breath, cough, chest pain. Denies fever or chills. Martin in place with clearing urine. Blood cultures with E. coli today. Rising WBC and procalcitonin but improving clinically. Broadened to meropenem for possible ESBL organism. Monitor creatinine. Lactate now beginning to improve as well. Exam Vital Signs (past 8 hours): - 11/14/20 05:20 11/14/20 08:00 11/14/20 13:00 Temperature 97.0 F L 98 F 97.6 F Pulse Rate 85 85 88 Respiratory Rate 16 16 17 Blood Pressure 96/45 L 114/69 120/70 Pulse Oximetry 91 93 Oxygen Delivery Method Nasal Cannula Oxygen Flow Rate 0 Objective Labs Result Diagrams: 11/14/20 09:30 11/14/20 05:50 Labs: Laboratory Results - last 24 hr 11/13/20 11/13/20 11/13/20 16:25 16:25 16:25 WBC 11.8 H RBC 4.86 Hgb 15.2 Hct 45.2 MCV 93.0 MCH 31.2 MCHC 33.6 RDW 13.1 Plt Count 238 Neut % (Auto) 70.3 Lymph % (Auto) 20.1 L [place] % (Auto) 7.8 Eos % (Auto) 1.1 L Baso % (Auto) 0.7 Neut # (Auto) 8300 H Lymph # (Auto) 2400 [place] # (Auto) 900 Eos # (Auto) 100 Baso # (Auto) 100 Sodium 142 Potassium 3.8 Chloride 106 Carbon Dioxide 28 BUN 19 Creatinine 1.10 Estimated GFR > 60.0 BUN/Creatinine Ratio 17.3 Glucose 108 Lactate 2.4 H Calcium 9.4 Total Bilirubin 0.7 AST 35 ALT 33 Alkaline Phosphatase 70 Total Protein 7.2 Albumin 4.3 Globulin 2.9 Albumin/Globulin Ratio 1.5 Lipase 137 Procalcitonin Urine Color Urine Appearance Urine pH Ur Specific [place] Urine Protein Urine Glucose (UA) Urine Ketones Urine Occult Blood Urine Nitrate Urine Bilirubin Urine Urobilinogen Ur Leukocyte Esterase Urine RBC Urine WBC Urine Bacteria Ur Culture Indicated? Micro UA Comment A. baumannii (PCR) Trudy albicans (PCR) C. glabrata (PCR) C. krusei (PCR) C. parapsilosis (PCR) C. tropicalis (PCR) SARS-CoV-2 (PCR) Enterobacteriac sp PCR E. cloacae complex PCR Enterococcus sp PCR E. coli (PCR) H. influenzae (PCR) Klebsiella oxytoca PCR Klebsiella pneumoniae List. monocytogenes PCR N. meningitidis (PCR) Proteus species (PCR) Serratia marcescens PCR Staphylococcus sp PCR Staph aureus (PCR) mecA-Methicil Res Gene Streptococcus sp PCR Group A Strep (PCR) Strep agalactiae (PCR) Strep pneumoniae (PCR) P. aeruginosa (PCR) [place]/B-Vanco Res Genes KPC-Carbap Res Gene PCR 11/13/20 11/13/20 11/13/20 18:10 19:22 19:22 WBC 2.0 L D RBC 5.02 Hgb 15.7 Hct 46.6 MCV 92.9 MCH 31.3 MCHC 33.7 RDW 12.8 Plt Count 156 Neut % (Auto) 92.8 H D Lymph % (Auto) 6.4 L [place] % (Auto) 0.5 L Eos % (Auto) 0.0 L Baso % (Auto) 0.3 Neut # (Auto) 1700 Lymph # (Auto) 100 L [place] # (Auto) 0 Eos # (Auto) 0 Baso # (Auto) 0 Sodium 139 Potassium 4.1 Chloride 107 Carbon Dioxide 24 BUN 20 Creatinine 1.31 H Estimated GFR 53.6 L BUN/Creatinine Ratio 15.3 Glucose 87 Lactate Calcium 9.1 Total Bilirubin 1.0 AST 53 ALT 37 Alkaline Phosphatase 104 Total Protein 7.1 Albumin 4.2 Globulin 2.9 Albumin/Globulin Ratio 1.4 Lipase 136 Procalcitonin 1.53 H Urine Color Yellow Urine Appearance Clear Urine pH 7.0 Ur Specific [place] 1.010 Urine Protein Negative Urine Glucose (UA) Negative Urine Ketones Negative Urine Occult Blood Trace-intact Urine Nitrate Negative Urine Bilirubin Negative Urine Urobilinogen 0.2 Ur Leukocyte Esterase Negative Urine RBC None seen Urine WBC None seen Urine Bacteria None seen Ur Culture Indicated? Specimen cultured Micro UA Comment Microscopic normal A. baumannii (PCR) Trudy albicans (PCR) C. glabrata (PCR) C. krusei (PCR) C. parapsilosis (PCR) C. tropicalis (PCR) SARS-CoV-2 (PCR) Enterobacteriac sp PCR E. cloacae complex PCR Enterococcus sp PCR E. coli (PCR) H. influenzae (PCR) Klebsiella oxytoca PCR Klebsiella pneumoniae List. monocytogenes PCR N. meningitidis (PCR) Proteus species (PCR) Serratia marcescens PCR Staphylococcus sp PCR Staph aureus (PCR) mecA-Methicil Res Gene Streptococcus sp PCR Group A Strep (PCR) Strep agalactiae (PCR) Strep pneumoniae (PCR) P. aeruginosa (PCR) [place]/B-Vanco Res Genes KPC-Carbap Res Gene PCR 11/13/20 11/13/20 11/13/20 19:22 19:22 19:22 WBC RBC Hgb Hct MCV MCH MCHC RDW Plt Count Neut % (Auto) Lymph % (Auto) [place] % (Auto) Eos % (Auto) Baso % (Auto) Neut # (Auto) Lymph # (Auto) [place] # (Auto) Eos # (Auto) Baso # (Auto) Sodium Potassium Chloride Carbon Dioxide BUN Creatinine Estimated GFR BUN/Creatinine Ratio Glucose Lactate 2.7 H Calcium Total Bilirubin AST ALT Alkaline Phosphatase Total Protein Albumin Globulin Albumin/Globulin Ratio Lipase Procalcitonin Urine Color Urine Appearance Urine pH Ur Specific [place] Urine Protein Urine Glucose (UA) Urine Ketones Urine Occult Blood Urine Nitrate Urine Bilirubin Urine Urobilinogen Ur Leukocyte Esterase Urine RBC Urine WBC Urine Bacteria Ur Culture Indicated? Micro UA Comment A. baumannii (PCR) Not detected Trudy albicans (PCR) Not detected C. glabrata (PCR) Not detected C. krusei (PCR) Not detected C. parapsilosis (PCR) Not detected C. tropicalis (PCR) Not detected SARS-CoV-2 (PCR) Negative Enterobacteriac sp PCR Detected H E. cloacae complex PCR Not detected Enterococcus sp PCR Not detected E. coli (PCR) Detected H H. influenzae (PCR) Not detected Klebsiella oxytoca PCR Not detected Klebsiella pneumoniae Not detected List. monocytogenes PCR Not detected N. meningitidis (PCR) Not detected Proteus species (PCR) Not detected Serratia marcescens PCR Not detected Staphylococcus sp PCR Not detected Staph aureus (PCR) Not detected mecA-Methicil Res Gene Not detected Streptococcus sp PCR Not detected Group A Strep (PCR) Not detected Strep agalactiae (PCR) Not detected Strep pneumoniae (PCR) Not detected P. aeruginosa (PCR) Not detected [place]/B-Vanco Res Genes Not detected KPC-Carbap Res Gene PCR Not detected 11/13/20 11/13/20 11/13/20 19:30 23:12 23:12 WBC 13.5 H D RBC 4.34 L Hgb 13.5 Hct 40.5 L MCV 93.3 MCH 31.1 MCHC 33.3 RDW 12.6 Plt Count 136 L Neut % (Auto) 95.8 H Lymph % (Auto) 3.2 L [place] % (Auto) 1.0 L Eos % (Auto) 0.0 L Baso % (Auto) 0.0 Neut # (Auto) 36427 H Lymph # (Auto) 400 L [place] # (Auto) 100 Eos # (Auto) 0 Baso # (Auto) 0 Sodium Potassium Chloride Carbon Dioxide BUN Creatinine Estimated GFR BUN/Creatinine Ratio Glucose Lactate 2.4 H Calcium Total Bilirubin AST ALT Alkaline Phosphatase Total Protein Albumin Globulin Albumin/Globulin Ratio Lipase Procalcitonin Urine Color Urine Appearance Urine pH Ur Specific [place] Urine Protein Urine Glucose (UA) Urine Ketones Urine Occult Blood Urine Nitrate Urine Bilirubin Urine Urobilinogen Ur Leukocyte Esterase Urine RBC Urine WBC Urine Bacteria Ur Culture Indicated? Micro UA Comment A. baumannii (PCR) Trudy albicans (PCR) C. glabrata (PCR) C. krusei (PCR) C. parapsilosis (PCR) C. tropicalis (PCR) SARS-CoV-2 (PCR) Negative Enterobacteriac sp PCR E. cloacae complex PCR Enterococcus sp PCR E. coli (PCR) H. influenzae (PCR) Klebsiella oxytoca PCR Klebsiella pneumoniae List. monocytogenes PCR N. meningitidis (PCR) Proteus species (PCR) Serratia marcescens PCR Staphylococcus sp PCR Staph aureus (PCR) mecA-Methicil Res Gene Streptococcus sp PCR Group A Strep (PCR) Strep agalactiae (PCR) Strep pneumoniae (PCR) P. aeruginosa (PCR) [place]/B-Vanco Res Genes KPC-Carbap Res Gene PCR 11/14/20 11/14/20 11/14/20 05:50 05:50 05:50 WBC 23.6 H D RBC 4.28 L Hgb 13.5 Hct 39.9 L MCV 93.2 MCH 31.6 MCHC 33.9 RDW 13.1 Plt Count 129 L Neut % (Auto) 94.6 H Lymph % (Auto) 1.1 L [place] % (Auto) 3.7 Eos % (Auto) 0.1 L Baso % (Auto) 0.5 Neut # (Auto) 37153 H Lymph # (Auto) 300 L [place] # (Auto) 900 Eos # (Auto) 0 Baso # (Auto) 100 Sodium 135 L Potassium 3.6 Chloride 110 H Carbon Dioxide 22 BUN 21 H Creatinine 1.43 H Estimated GFR 48.5 L BUN/Creatinine Ratio 14.7 Glucose 142 H Lactate 2.9 H Calcium 8.5 Total Bilirubin 0.8 AST 40 ALT 33 Alkaline Phosphatase 44 D Total Protein 5.7 L Albumin 3.2 L Globulin 2.5 Albumin/Globulin Ratio 1.3 Lipase Procalcitonin Urine Color Urine Appearance Urine pH Ur Specific [place] Urine Protein Urine Glucose (UA) Urine Ketones Urine Occult Blood Urine Nitrate Urine Bilirubin Urine Urobilinogen Ur Leukocyte Esterase Urine RBC Urine WBC Urine Bacteria Ur Culture Indicated? Micro UA Comment A. baumannii (PCR) Trudy albicans (PCR) C. glabrata (PCR) C. krusei (PCR) C. parapsilosis (PCR) C. tropicalis (PCR) SARS-CoV-2 (PCR) Enterobacteriac sp PCR E. cloacae complex PCR Enterococcus sp PCR E. coli (PCR) H. influenzae (PCR) Klebsiella oxytoca PCR Klebsiella pneumoniae List. monocytogenes PCR N. meningitidis (PCR) Proteus species (PCR) Serratia marcescens PCR Staphylococcus sp PCR Staph aureus (PCR) mecA-Methicil Res Gene Streptococcus sp PCR Group A Strep (PCR) Strep agalactiae (PCR) Strep pneumoniae (PCR) P. aeruginosa (PCR) [place]/B-Vanco Res Genes KPC-Carbap Res Gene PCR 11/14/20 11/14/20 11/14/20 05:50 09:30 09:30 WBC 28.4 H RBC 4.30 L Hgb 13.5 Hct 40.2 L MCV 93.5 MCH 31.3 MCHC 33.5 RDW 13.4 Plt Count 132 L Neut % (Auto) 94.5 H Lymph % (Auto) 1.4 L [place] % (Auto) 3.9 Eos % (Auto) 0.0 L Baso % (Auto) 0.2 Neut # (Auto) 87713 H Lymph # (Auto) 400 L [place] # (Auto) 1100 H Eos # (Auto) 0 Baso # (Auto) 100 Sodium Potassium Chloride Carbon Dioxide BUN Creatinine Estimated GFR BUN/Creatinine Ratio Glucose Lactate 3.9 H Calcium Total Bilirubin AST ALT Alkaline Phosphatase Total Protein Albumin Globulin Albumin/Globulin Ratio Lipase Procalcitonin 97.1 H Urine Color Urine Appearance Urine pH Ur Specific [place] Urine Protein Urine Glucose (UA) Urine Ketones Urine Occult Blood Urine Nitrate Urine Bilirubin Urine Urobilinogen Ur Leukocyte Esterase Urine RBC Urine WBC Urine Bacteria Ur Culture Indicated? Micro UA Comment A. baumannii (PCR) Trudy albicans (PCR) C. glabrata (PCR) C. krusei (PCR) C. parapsilosis (PCR) C. tropicalis (PCR) SARS-CoV-2 (PCR) Enterobacteriac sp PCR E. cloacae complex PCR Enterococcus sp PCR E. coli (PCR) H. influenzae (PCR) Klebsiella oxytoca PCR Klebsiella pneumoniae List. monocytogenes PCR N. meningitidis (PCR) Proteus species (PCR) Serratia marcescens PCR Staphylococcus sp PCR Staph aureus (PCR) mecA-Methicil Res Gene Streptococcus sp PCR Group A Strep (PCR) Strep agalactiae (PCR) Strep pneumoniae (PCR) P. aeruginosa (PCR) [place]/B-Vanco Res Genes KPC-Carbap Res Gene PCR [facility] Medical History Chicken pox (195) Excessive daytime sleepiness Foot pain (2016) Fractures (1964) Hayfever (1969) Hemorrhoids (2001) Herpes (1970) Macular pucker, left eye (2016) Measles (1951) Mumps (1950) Nocturnal hypoxemia Obesity (BMI 30-39.9) Obstructive sleep apnea Osteoarthritis (2009) Pigmented skin lesion Precancerous skin lesion (2016) Right nephrolithiasis Right ureteral calculus Sepsis Shoulder pain (2015) Tinnitus (1984) Surgical History Anesthesia History of eye surgery (2016) History of hernia repair (03/2013) History of hernia repair (03/2012) Status post rotator cuff repair (2015) Status post wrist surgery (1967) Status post wrist surgery (1994) Family History Grandfather Cancer Father Congenital heart disease Mother Congenital heart disease Grandmother No problems noted. Grandmother No problems noted. Grandfather No problems noted. Brother No problems noted. Brother No problems noted. Social History marital status: household members: spouse lives independently: Yes Smoking Status: Never smoker second hand exposure: No alcohol intake: never substance use type: does not use
--- NOTE | 2020-11-14 17:12 | CM.DPC ---
DCP/Assessment: Reviewed chart. Patient is a 75yr old male admitted to [facility] for kidney stone. PCP is Dory Velazquez. Primary payor is 1[facility]. Met with patient and spouse/Zuleika at bedside explained CM/SW role. Patient reports that he is completely I at baseline. Patient's plan is to d/c home when medically stable. Notified patient and spouse that CM team would continue to follow as needed for planning. P: Anticipate home when stable. VALERIE Jaramillo Discharge Planning/Care Management Advanced directive, confirm from FAMILY Start: 11/13/20 22:53 Freq: Q24H Status: Active Protocol: Document 11/13/20 22:53 [email or web address] (Rec: 11/13/20 23:14 [id number]) Advance Directive, confirm on record Time 23:14 Person contacted zuleika gómez ( ) Copy received No Advanced directive available on record No CM Discharge Assessment Start: 11/14/20 16:58 Freq: Status: Active Protocol: Document 11/14/20 17:00 KJS (Rec: 11/14/20 17:12 [id number]) Discharge Planning Assessment Assigned Assistant Real Estate Manager VALERIE Jaramillo Contact Information Zuleika Zenia (spouse) ph# [phone] Advance Directives? Yes Advance Directives on File No History Provided By Patient,Medical Record Prior Living Arrangements House Household Members spouse Type of transporation used prior to Drives own vehicle admit Independent with ADL's Yes Is patient alert and oriented? Yes Caregiver for Another No Barriers to Discharge No Discharge Plan Home Transportation Arrangement Family to provide transport. Referrals Initiated None needed Whiteboard Updated in Patient Room with Yes name and ext. # of Assistant Real Estate Manager Review Status In Process Next Review Type Continued Stay Review
[2020-11-14] MEDS: ACETAMINOPHEN 325 MG TABLET 650 MG PO (22:51)
[2020-11-15] VITALS (7 sets, daily range): BP systolic 119–150; BP diastolic 66–85; PULSE 80–88; RESP 14–18; TEMP 36.3–37; O2SAT 92–96
--- NOTE | 2020-11-15 02:28 | PC.NURSE ---
Patient is alert and oriented. Breath sounds CTA with RA sat of 92%; using home CPAP for sleep. HRR w/telemetry reading of BBB. Denied nausea. BT present and had BM yesterday. Indwelling catheter is patent; urine is clear, dark sara. Is able to move self in bed. Gait not assessed but reports he is able to get up with SBA and denied use of AD. Denied pain. Fall risk score is moderate but patient calls appropriately for help.
[2020-11-15] MEDS: SODIUM CHLORIDE 0.9% 1,000 ML 100 ML IV ×2 (06:09→17:00)
[2020-11-15 06:13] LABS: Alanine Aminotransferase 96 IU/L (<50); Albumin Globulin Ratio 1.1 (1.0-2.8); Alkaline Phosphatase 82 U/L (38-126); Aspartate Aminotransferase 95 IU/L (17-59); BUN Creatinine Ratio 19.8 (6-22); Bilirubin Total 1.8 mg/dL (0.2-1.3); Blood Urea Nitrogen 23 mg/dL (9-20); Calcium 8.2 mg/dL (8.4-10.2); Carbon Dioxide 22 mmol/L (22-32); Chloride 113 mmol/L (98-107); Estimated Glomerular Filt Rate > 60.0 mL/min (>60); Globulin 2.7 g/dL (1.7-4.1); Glucose 114 mg/dL (80-110); HEMOLYSIS < 15 (0-50); Potassium 3.9 mmol/L (3.4-5.1); Sodium 139 mmol/L (137-145); Total Protein 5.7 g/dL (6.3-8.2)
[2020-11-15 06:19] LABS: Add Manual Diff / Slide Review NO; Basophils Absolute Auto 100 /uL (0-100); Basophils Percent Auto 0.4 % (0-2); Eosinophils Absolute Auto 100 /uL (0-450); Eosinophils Percent Auto 0.2 % (2-4); Hematocrit 38.7 % (41-53); Lymphocytes Absolute Auto 800 /uL (1100-4500); Lymphocytes Percent Auto 3.8 % (25-40); Mean Corpuscular HGB Conc 33.6 % (30-36); Mean Corpuscular Hemoglobin 31.3 PG (26-34); Monocytes Absolute Auto 700 /uL (0-900); Monocytes Percent Auto 3.5 % (3-14); Neutrophils Absolute Auto 19200 /uL (1500-7000); Neutrophils Percent Auto 92.1 % (50-75); Platelet Count 114 X10^3/uL (150-400); Red Blood Cell Count 4.16 X10^6/uL (4.5-5.9); Red Cell Distribution Width 13.6 % (11.6-14.8); White Blood Cell Count 20.9 X10^3/uL (4.5-11.0)
[2020-11-15 06:29] LABS: Procalcitonin 63.3 ng/mL (<0.5)
[2020-11-15 07:01] LABS: Lactate (Lactic Acid) 1.1 mmol/L (0.7-2.1)
--- NOTE | 2020-11-15 07:22 | P.PN_ITS ---
Subjective Subjective Date Patient Seen: 11/15/20 Time Patient Seen: 07:22 Interval history: The patient is postop day 2. Status post urgent placement right ureteral stent for obstructing 7 mm stone and sepsis. He continues to clinically and proved. He denies interval new complaints. In the interval blood cultures indicate pulmonary growth of E coli. Final sensitivities are pending. The hospitalist service has placed him on meropenem as of yesterday. This morning's laboratories appear improved Exam Vital Signs (past 8 hours): - 11/15/20 00:56 11/15/20 05:31 Temperature 97.9 F 97.4 F L Pulse Rate 88 81 Respiratory Rate 14 18 Blood Pressure 119/66 124/66 Pulse Oximetry 92 96 Oxygen Delivery Method Room Air,CPAP Oxygen Flow Rate 0 Narrative Exam Narrative: He is well-developed and nourished resting comfortably in bed. Chest-Equal and unlabored expansion of chest bilaterally. Abdomen-benign. Objective Labs Result Diagrams: 11/15/20 05:49 11/15/20 05:49 Labs: Laboratory Results - last 24 hr 11/13/20 11/13/20 11/14/20 18:10 19:22 09:30 WBC 28.4 H RBC 4.30 L Hgb 13.5 Hct 40.2 L MCV 93.5 MCH 31.3 MCHC 33.5 RDW 13.4 Plt Count 132 L Neut % (Auto) 94.5 H Lymph % (Auto) 1.4 L [place] % (Auto) 3.9 Eos % (Auto) 0.0 L Baso % (Auto) 0.2 Neut # (Auto) 43623 H Lymph # (Auto) 400 L [place] # (Auto) 1100 H Eos # (Auto) 0 Baso # (Auto) 100 Sodium Potassium Chloride Carbon Dioxide BUN Creatinine Estimated GFR BUN/Creatinine Ratio Glucose Lactate Calcium Total Bilirubin AST ALT Alkaline Phosphatase Total Protein Albumin Globulin Albumin/Globulin Ratio Procalcitonin Ur Culture Indicated? Specimen cultured A. baumannii (PCR) Not detected Trudy albicans (PCR) Not detected C. glabrata (PCR) Not detected C. krusei (PCR) Not detected C. parapsilosis (PCR) Not detected C. tropicalis (PCR) Not detected Enterobacteriac sp PCR Detected H E. cloacae complex PCR Not detected Enterococcus sp PCR Not detected E. coli (PCR) Detected H H. influenzae (PCR) Not detected Klebsiella oxytoca PCR Not detected Klebsiella pneumoniae Not detected List. monocytogenes PCR Not detected N. meningitidis (PCR) Not detected Proteus species (PCR) Not detected Serratia marcescens PCR Not detected Staphylococcus sp PCR Not detected Staph aureus (PCR) Not detected mecA-Methicil Res Gene Not detected Streptococcus sp PCR Not detected Group A Strep (PCR) Not detected Strep agalactiae (PCR) Not detected Strep pneumoniae (PCR) Not detected P. aeruginosa (PCR) Not detected [place]/B-Vanco Res Genes Not detected KPC-Carbap Res Gene PCR Not detected 11/14/20 11/15/20 11/15/20 09:30 05:49 05:49 WBC 20.9 H RBC 4.16 L Hgb 13.0 L Hct 38.7 L MCV 93.0 MCH 31.3 MCHC 33.6 RDW 13.6 Plt Count 114 L Neut % (Auto) 92.1 H Lymph % (Auto) 3.8 L [place] % (Auto) 3.5 Eos % (Auto) 0.2 L Baso % (Auto) 0.4 Neut # (Auto) 96462 H Lymph # (Auto) 800 L [place] # (Auto) 700 Eos # (Auto) 100 Baso # (Auto) 100 Sodium Potassium Chloride Carbon Dioxide BUN Creatinine Estimated GFR BUN/Creatinine Ratio Glucose Lactate 3.9 H Calcium Total Bilirubin AST ALT Alkaline Phosphatase Total Protein Albumin Globulin Albumin/Globulin Ratio Procalcitonin 63.3 H Ur Culture Indicated? A. baumannii (PCR) Trudy albicans (PCR) C. glabrata (PCR) C. krusei (PCR) C. parapsilosis (PCR) C. tropicalis (PCR) Enterobacteriac sp PCR E. cloacae complex PCR Enterococcus sp PCR E. coli (PCR) H. influenzae (PCR) Klebsiella oxytoca PCR Klebsiella pneumoniae List. monocytogenes PCR N. meningitidis (PCR) Proteus species (PCR) Serratia marcescens PCR Staphylococcus sp PCR Staph aureus (PCR) mecA-Methicil Res Gene Streptococcus sp PCR Group A Strep (PCR) Strep agalactiae (PCR) Strep pneumoniae (PCR) P. aeruginosa (PCR) [place]/B-Vanco Res Genes KPC-Carbap Res Gene PCR 11/15/20 11/15/20 05:49 06:38 WBC RBC Hgb Hct MCV MCH MCHC RDW Plt Count Neut % (Auto) Lymph % (Auto) [place] % (Auto) Eos % (Auto) Baso % (Auto) Neut # (Auto) Lymph # (Auto) [place] # (Auto) Eos # (Auto) Baso # (Auto) Sodium 139 Potassium 3.9 Chloride 113 H Carbon Dioxide 22 BUN 23 H Creatinine 1.16 Estimated GFR > 60.0 BUN/Creatinine Ratio 19.8 Glucose 114 H Lactate 1.1 Calcium 8.2 L Total Bilirubin 1.8 H AST 95 H ALT 96 H Alkaline Phosphatase 82 Total Protein 5.7 L Albumin 3.0 L Globulin 2.7 Albumin/Globulin Ratio 1.1 Procalcitonin Ur Culture Indicated? A. baumannii (PCR) Trudy albicans (PCR) C. glabrata (PCR) C. krusei (PCR) C. parapsilosis (PCR) C. tropicalis (PCR) Enterobacteriac sp PCR E. cloacae complex PCR Enterococcus sp PCR E. coli (PCR) H. influenzae (PCR) Klebsiella oxytoca PCR Klebsiella pneumoniae List. monocytogenes PCR N. meningitidis (PCR) Proteus species (PCR) Serratia marcescens PCR Staphylococcus sp PCR Staph aureus (PCR) mecA-Methicil Res Gene Streptococcus sp PCR Group A Strep (PCR) Strep agalactiae (PCR) Strep pneumoniae (PCR) P. aeruginosa (PCR) [place]/B-Vanco Res Genes KPC-Carbap Res Gene PCR [facility] Medical History Chicken pox (195) Excessive daytime sleepiness Foot pain (2016) Fractures (1964) Hayfever (1969) Hemorrhoids (2001) Herpes (1970) Macular pucker, left eye (2016) Measles (1952) Mumps (1950) Nocturnal hypoxemia Obesity (BMI 30-39.9) Obstructive sleep apnea Osteoarthritis (2010) Pigmented skin lesion Precancerous skin lesion (2016) Right nephrolithiasis Right ureteral calculus Sepsis Shoulder pain (2015) Tinnitus (1984) Surgical History Anesthesia History of eye surgery (2016) History of hernia repair (03/2013) History of hernia repair (03/2012) Status post rotator cuff repair (2015) Status post wrist surgery (1967) Status post wrist surgery (1994) Family History Grandfather Cancer Father Congenital heart disease Mother Congenital heart disease Grandmother No problems noted. Grandmother No problems noted. Grandfather No problems noted. Brother No problems noted. Brother No problems noted. Social History marital status: household members: spouse lives independently: Yes Smoking Status: Never smoker second hand exposure: No alcohol intake: never substance use type: does not use Assessment & Plan Assessment & Plan narrative: Assessment: 1. Stable postoperative day 2 status post urgent cystoscopy placement right ureteral stent. 2. E coli sepsis. Final sensitivities pending. Plan: 1. Continue meropenem and await final culture sensitivities. Once a suitable oral agent can be selected he appears to be hemodynamically stable for discharge. 2. Will schedule outpatient right ureteroscopic laser lithotripsy following adequate treatment of sepsis.
--- NOTE | 2020-11-15 08:00 | DI.RAD.S_ITS ---
PROCEDURE: XR KUB INDICATIONS: Right ureteral calculi TECHNIQUE: One view of the abdomen acquired. COMPARISON: [facility], , XR KUB, 11/13/2020, 21:28. FINDINGS: Surgical changes and devices: Double-J right ureteral stent Bowel: Bowel gas pattern is normal. Soft tissues: No suspicious abdominal calcifications. Visualized solid organ contours appear normal in size. Bones: No suspicious bony lesions. IMPRESSION: Expected position of right ureteral double-J stent. Dictated by: Perry Sullivan M.D. on 11/15/2020 at 10:03 Approved by: Perry Sullivan M.D. on 11/15/2020 at 10:04
[2020-11-15] MEDS: MEROPENEM 1 GM in SODIUM CHLORIDE 0.9% 100 ML 200 ML IV ×2 (08:49→18:06)
[2020-11-15] MEDS: MULTIVITAMIN 1 TABLET 1 TAB PO (08:50)
[2020-11-15] MEDS: ENOXAPARIN 40 MG/0.4 ML SYRINGE SUBCUT (08:51)
[2020-11-15] MEDS: ACYCLOVIR 400 MG TABLET PO (08:51)
--- NOTE | 2020-11-15 18:26 | P.PN_ITS ---
Subjective Subjective Date Patient Seen: 11/15/20 Time Patient Seen: 18:26 Interval history: Patient feels well this morning. No pain, shortness of breath, cough, chest pain. Denies fever or chills. Martin in place with clearing urine. Blood cultures with E. coli, pending sensitivities. Improving WBC and procalcitonin today. Broadened to meropenem for possible ESBL organism. Exam Vital Signs (past 8 hours): - 11/15/20 13:50 11/15/20 15:40 Temperature 98.1 F 98.2 F Pulse Rate 88 86 Respiratory Rate 16 16 Blood Pressure 142/84 H 142/79 H Pulse Oximetry 94 95 Oxygen Delivery Method Room Air,CPAP Oxygen Flow Rate 0 Narrative Exam Narrative: GENERAL APPEARANCE: Well developed, well nourished, in no acute distress. SKIN: Inspection of the skin reveals no rashes, ulcerations or petechiae. HEENT: Normocephalic atraumatic, extraocular muscles are intact, oropharynx is clear and mucous membranes are moist, neck is supple without adenopathy NECK: Supple and symmetric. There was no thyroid enlargement, and no tenderness, or masses were felt. CHEST: Normal AP diameter and normal contour without any kyphoscoliosis. LUNGS: Auscultation of the lungs revealed no wheezes, rhonchi, or rales. CARDIOVASCULAR: There was a regular rate and rhythm without any murmurs, gallops, rubs. Peripheral pulses were 2+ and symmetric. ABDOMEN: Soft and nontender with normal bowel sounds. No ascites was noted. MUSCULOSKELETAL: There was no tenderness or effusions noted. Muscle strength and tone were normal. EXTREMITIES: No cyanosis, clubbing or edema. NEUROLOGIC: Alert and oriented x 3. Normal affect. Gait was normal. Strength is +5/5 in the Upper Extremities and Lower Extremities Bilaterally. Sensation to touch was normal. Objective Labs Result Diagrams: 11/15/20 05:49 11/15/20 05:49 Labs: Laboratory Results - last 24 hr 11/13/20 11/15/20 11/15/20 19:22 05:49 05:49 WBC 20.9 H RBC 4.16 L Hgb 13.0 L Hct 38.7 L MCV 93.0 MCH 31.3 MCHC 33.6 RDW 13.6 Plt Count 114 L Neut % (Auto) 92.1 H Lymph % (Auto) 3.8 L [place] % (Auto) 3.5 Eos % (Auto) 0.2 L Baso % (Auto) 0.4 Neut # (Auto) 93127 H Lymph # (Auto) 800 L [place] # (Auto) 700 Eos # (Auto) 100 Baso # (Auto) 100 Sodium Potassium Chloride Carbon Dioxide BUN Creatinine Estimated GFR BUN/Creatinine Ratio Glucose Lactate Calcium Total Bilirubin AST ALT Alkaline Phosphatase Total Protein Albumin Globulin Albumin/Globulin Ratio Procalcitonin 63.3 H A. baumannii (PCR) Not detected Trudy albicans (PCR) Not detected C. glabrata (PCR) Not detected C. krusei (PCR) Not detected C. parapsilosis (PCR) Not detected C. tropicalis (PCR) Not detected Enterobacteriac sp PCR Detected H E. cloacae complex PCR Not detected Enterococcus sp PCR Not detected E. coli (PCR) Detected H H. influenzae (PCR) Not detected Klebsiella oxytoca PCR Not detected Klebsiella pneumoniae Not detected List. monocytogenes PCR Not detected N. meningitidis (PCR) Not detected Proteus species (PCR) Not detected Serratia marcescens PCR Not detected Staphylococcus sp PCR Not detected Staph aureus (PCR) Not detected mecA-Methicil Res Gene Not detected Streptococcus sp PCR Not detected Group A Strep (PCR) Not detected Strep agalactiae (PCR) Not detected Strep pneumoniae (PCR) Not detected P. aeruginosa (PCR) Not detected [place]/B-Vanco Res Genes Not detected KPC-Carbap Res Gene PCR Not detected 11/15/20 11/15/20 05:49 06:38 WBC RBC Hgb Hct MCV MCH MCHC RDW Plt Count Neut % (Auto) Lymph % (Auto) [place] % (Auto) Eos % (Auto) Baso % (Auto) Neut # (Auto) Lymph # (Auto) [place] # (Auto) Eos # (Auto) Baso # (Auto) Sodium 139 Potassium 3.9 Chloride 113 H Carbon Dioxide 22 BUN 23 H Creatinine 1.16 Estimated GFR > 60.0 BUN/Creatinine Ratio 19.8 Glucose 114 H Lactate 1.1 Calcium 8.2 L Total Bilirubin 1.8 H AST 95 H ALT 96 H Alkaline Phosphatase 82 Total Protein 5.7 L Albumin 3.0 L Globulin 2.7 Albumin/Globulin Ratio 1.1 Procalcitonin A. baumannii (PCR) Trudy albicans (PCR) C. glabrata (PCR) C. krusei (PCR) C. parapsilosis (PCR) C. tropicalis (PCR) Enterobacteriac sp PCR E. cloacae complex PCR Enterococcus sp PCR E. coli (PCR) H. influenzae (PCR) Klebsiella oxytoca PCR Klebsiella pneumoniae List. monocytogenes PCR N. meningitidis (PCR) Proteus species (PCR) Serratia marcescens PCR Staphylococcus sp PCR Staph aureus (PCR) mecA-Methicil Res Gene Streptococcus sp PCR Group A Strep (PCR) Strep agalactiae (PCR) Strep pneumoniae (PCR) P. aeruginosa (PCR) [place]/B-Vanco Res Genes KPC-Carbap Res Gene PCR [facility] Medical History Chicken pox (195) Excessive daytime sleepiness Foot pain (2016) Fractures (1964) Hayfever (1969) Hemorrhoids (2001) Herpes (1970) Macular pucker, left eye (2016) Measles (1951) Mumps (1950) Nocturnal hypoxemia Obesity (BMI 30-39.9) Obstructive sleep apnea Osteoarthritis (2009) Pigmented skin lesion Precancerous skin lesion (2016) Right nephrolithiasis Right ureteral calculus Sepsis Shoulder pain (2015) Tinnitus (1984) Surgical History Anesthesia History of eye surgery (2016) History of hernia repair (03/2013) History of hernia repair (03/2012) Status post rotator cuff repair (2015) Status post wrist surgery (1967) Status post wrist surgery (1994) Family History Grandfather Cancer Father Congenital heart disease Mother Congenital heart disease Grandmother No problems noted. Grandmother No problems noted. Grandfather No problems noted. Brother No problems noted. Brother No problems noted. Social History marital status: household members: spouse lives independently: Yes Smoking Status: Never smoker second hand exposure: No alcohol intake: never substance use type: does not use Assessment & Plan Assessment & Plan narrative: 1. Sepsis secondary to E. Coli bacteremia probably from R pyelonephritis secondary to R nephrolithiasis and obstruction. - SOFA score 4. - continue meropenem for ESBL coverage while awaiting sensitivities. Blood cultures with E. coli. Duration of therapy is typically 7 days though consider longer duration given stone is still present - WBC and procalcitonin improving appropriately today. - can d/c IV fluids today, CARLOS improving. - monitor LFTs given rise, may need to discontinue meropenem as this has been reported as a cause of DILI. 2. Mixed hyperlipidemia, acute on chronic, present on admission -control unknown continue patient's atorvastatin 3. Obesity, as evidence by BMI of 31.6, acute on chronic, present on admission -consideration will be given to dietary counseling. 4. CARLOS, resolved. Thank you for the opportunity to consult on this patient. Will continue to follow until sensitivities result. He appears to be improving at this time. Code status: Full code Surrogate decision maker: Zuleika BENITEZ PCR: Negative DVT/VTE prophylaxis: As ordered by primary team. Scores SOFA PaO2/FIO2: >=400 mmHg Platelets: < 150 Bilirubin: 1.2-1.9 mg/dL Hypotension: MAP < 70 mmHg Pat Coma Scale: 15 Renal: Creatinine 1.2-1.9 mg/dL SOFA Score: 4
[2020-11-15] MEDS: ATORVASTATIN 20 MG TABLET 10 MG PO (21:51)
[2020-11-15] MEDS: ACETAMINOPHEN 325 MG TABLET 650 MG PO (23:29)
--- NOTE | 2020-11-16 00:20 | PC.NURSE ---
Report received, care assumed 1530. VSS throughout shift. Pt. denies pain. Significant UO via Martin, pink/sara in color. Pt. is low fall risk and, after saline locked, ambulates in the room and hallway independently, carrying Martin bag.
[2020-11-16] MEDS: SODIUM CHLORIDE 0.9% FLUSH 10 ML IV ×2 (01:26→08:14)
[2020-11-16] MEDS: MEROPENEM 1 GM in SODIUM CHLORIDE 0.9% 100 ML 200 ML IV ×2 (01:26→08:14)
--- NOTE | 2020-11-16 02:18 | PC.NURSE ---
Patient is alert and oriented. Breath sounds CTA with RA sat of 96%; using home CPAP. 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 BP trending up at 150/83. Denied nausea. BT present and is passing flatus/having BM's. 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 Is able to move himself in bed and up with SBA/independent and is steady on feet. Complained of 3/10 back discomfort and was medicated with Tylenol and is currently asleep. Fall risk score is moderate; bed alarm not in use as patient calls for assistance appropriately.
[2020-11-16 05:45] VITALS: BP 146/78; PULSE 80; RESP 16; TEMP 37.2; O2SAT 94
[2020-11-16 06:15] LABS: Hematocrit 39.8 % (41-53); Hemoglobin 13.5 g/dL (13.5-17.5); Mean Corpuscular HGB Conc 33.9 % (30-36); Mean Corpuscular Hemoglobin 31.7 PG (26-34); Mean Corpuscular Volume 93.6 fL (80-100); Platelet Count 128 X10^3/uL (150-400); Red Blood Cell Count 4.25 X10^6/uL (4.5-5.9); Red Cell Distribution Width 13.6 % (11.6-14.8); White Blood Cell Count 15.2 X10^3/uL (4.5-11.0)
[2020-11-16 06:17] LABS: Add Manual Diff / Slide Review YES
[2020-11-16 06:24] LABS: Alanine Aminotransferase 74 IU/L (<50); Albumin 2.9 g/dL (3.5-5.0); Alkaline Phosphatase 114 U/L (38-126); Aspartate Aminotransferase 56 IU/L (17-59); BUN Creatinine Ratio 16.3 (6-22); Bilirubin Total 0.9 mg/dL (0.2-1.3); Blood Urea Nitrogen 16 mg/dL (9-20); Calcium 8.6 mg/dL (8.4-10.2); Carbon Dioxide 24 mmol/L (22-32); Chloride 114 mmol/L (98-107); Estimated Glomerular Filt Rate > 60.0 mL/min (>60); Globulin 2.8 g/dL (1.7-4.1); Glucose 92 mg/dL (80-110); HEMOLYSIS < 15 (0-50); Potassium 4.1 mmol/L (3.4-5.1); Sodium 139 mmol/L (137-145); Total Protein 5.7 g/dL (6.3-8.2)
[2020-11-16 06:36] LABS: Procalcitonin 31.4 ng/mL (<0.5)
[2020-11-16 07:05] LABS: Neutrophils Absolute Manual 14136 /uL (3000-5900); Total Cells Counted 100
[2020-11-16 07:06] LABS: RBC Morphology Normal Morphology
--- NOTE | 2020-11-16 07:23 | P.PN_ITS ---
Subjective Subjective Date Patient Seen: 11/16/20 Time Patient Seen: 07:23 Interval history: Patient feels well this morning. No pain, shortness of breath, cough, chest pain. Denies fever or chills. Improving WBC and procalcitonin today. Pansensitive organism in the blood. Exam Vital Signs (past 8 hours): - 11/15/20 23:40 11/16/20 05:45 Temperature 98.4 F 98.9 F Pulse Rate 80 80 Respiratory Rate 14 16 Blood Pressure 150/83 H 146/78 H Pulse Oximetry 96 94 Oxygen Delivery Method Room Air,CPAP Oxygen Flow Rate 0 Narrative Exam Narrative: GENERAL APPEARANCE: Well developed, well nourished, in no acute distress. CHEST: Normal AP diameter and normal contour without any kyphoscoliosis. LUNGS: No respiratory distress, equal chest rise bilaterally. CARDIOVASCULAR: RRR ABDOMEN: Soft and non-distended. MUSCULOSKELETAL: Muscle strength and tone were normal. EXTREMITIES: No cyanosis, clubbing or edema. NEUROLOGIC: Alert and oriented x 3. Normal affect. Strength is +5/5 in the Upper Extremities and Lower Extremities Bilaterally. Sensation to touch was normal. Objective Labs Result Diagrams: 11/16/20 05:39 11/16/20 05:39 Labs: Laboratory Results - last 24 hr 11/13/20 11/16/20 11/16/20 19:22 05:39 05:39 WBC 15.2 H RBC 4.25 L Hgb 13.5 Hct 39.8 L MCV 93.6 MCH 31.7 MCHC 33.9 RDW 13.6 Plt Count 128 L Neut % (Auto) Not Reportable Lymph % (Auto) Not Reportable [place] % (Auto) Not Reportable Eos % (Auto) Not Reportable Baso % (Auto) Not Reportable Lymph # (Auto) Not Reportable [place] # (Auto) Not Reportable Baso # (Auto) Not Reportable Total Counted 100 Seg Neutrophils % 88.0 H Band Neutrophils % 5.0 Lymphocytes % (Manual) 5.0 L Monocytes % (Manual) 1.0 L Eosinophils % (Manual) 1.0 L Neutrophils # (Manual) 63309 H RBC Morphology Normal morphology Sodium Potassium Chloride Carbon Dioxide BUN Creatinine Estimated GFR BUN/Creatinine Ratio Glucose Calcium Total Bilirubin AST ALT Alkaline Phosphatase Total Protein Albumin Globulin Albumin/Globulin Ratio Procalcitonin 31.4 H A. baumannii (PCR) Not detected Trudy albicans (PCR) Not detected C. glabrata (PCR) Not detected C. krusei (PCR) Not detected C. parapsilosis (PCR) Not detected C. tropicalis (PCR) Not detected Enterobacteriac sp PCR Detected H E. cloacae complex PCR Not detected Enterococcus sp PCR Not detected E. coli (PCR) Detected H H. influenzae (PCR) Not detected Klebsiella oxytoca PCR Not detected Klebsiella pneumoniae Not detected List. monocytogenes PCR Not detected N. meningitidis (PCR) Not detected Proteus species (PCR) Not detected Serratia marcescens PCR Not detected Staphylococcus sp PCR Not detected Staph aureus (PCR) Not detected mecA-Methicil Res Gene Not detected Streptococcus sp PCR Not detected Group A Strep (PCR) Not detected Strep agalactiae (PCR) Not detected Strep pneumoniae (PCR) Not detected P. aeruginosa (PCR) Not detected [place]/B-Vanco Res Genes Not detected KPC-Carbap Res Gene PCR Not detected 11/16/20 05:39 WBC RBC Hgb Hct MCV MCH MCHC RDW Plt Count Neut % (Auto) Lymph % (Auto) [place] % (Auto) Eos % (Auto) Baso % (Auto) Lymph # (Auto) [place] # (Auto) Baso # (Auto) Total Counted Seg Neutrophils % Band Neutrophils % Lymphocytes % (Manual) Monocytes % (Manual) Eosinophils % (Manual) Neutrophils # (Manual) RBC Morphology Sodium 139 Potassium 4.1 Chloride 114 H Carbon Dioxide 24 BUN 16 Creatinine 0.98 Estimated GFR > 60.0 BUN/Creatinine Ratio 16.3 Glucose 92 Calcium 8.6 Total Bilirubin 0.9 AST 56 ALT 74 H Alkaline Phosphatase 114 Total Protein 5.7 L Albumin 2.9 L Globulin 2.8 Albumin/Globulin Ratio 1.0 Procalcitonin A. baumannii (PCR) Trudy albicans (PCR) C. glabrata (PCR) C. krusei (PCR) C. parapsilosis (PCR) C. tropicalis (PCR) Enterobacteriac sp PCR E. cloacae complex PCR Enterococcus sp PCR E. coli (PCR) H. influenzae (PCR) Klebsiella oxytoca PCR Klebsiella pneumoniae List. monocytogenes PCR N. meningitidis (PCR) Proteus species (PCR) Serratia marcescens PCR Staphylococcus sp PCR Staph aureus (PCR) mecA-Methicil Res Gene Streptococcus sp PCR Group A Strep (PCR) Strep agalactiae (PCR) Strep pneumoniae (PCR) P. aeruginosa (PCR) [place]/B-Vanco Res Genes KPC-Carbap Res Gene PCR [facility] Medical History Chicken pox (1952) Excessive daytime sleepiness Foot pain (2017) Fractures (1965) Hayfever (1970) Hemorrhoids (2001) Herpes (1971) Macular pucker, left eye (2016) Measles (1952) Mumps (195) Nocturnal hypoxemia Obesity (BMI 30-39.9) Obstructive sleep apnea Osteoarthritis (2010) Pigmented skin lesion Precancerous skin lesion (2016) Right nephrolithiasis Right ureteral calculus Sepsis Shoulder pain (2015) Tinnitus (1984) Surgical History Anesthesia History of eye surgery (2016) History of hernia repair (03/2013) History of hernia repair (03/2012) Status post rotator cuff repair (2015) Status post wrist surgery (1967) Status post wrist surgery (1994) Family History Grandfather Cancer Father Congenital heart disease Mother Congenital heart disease Grandmother No problems noted. Grandmother No problems noted. Grandfather No problems noted. Brother No problems noted. Brother No problems noted. Social History marital status: household members: spouse lives independently: Yes Smoking Status: Never smoker second hand exposure: No alcohol intake: never substance use type: does not use Assessment & Plan Assessment & Plan narrative: 1. Sepsis secondary to E. Coli bacteremia probably from R pyelonephritis secondary to R nephrolithiasis and obstruction. - SOFA score 4. - Blood cultures with stafford sensitive E. coli. Duration of therapy is typically 7 days though consider longer duration given stone is still present. Would recommend discharge on oral cephalosporin (cefdinir 300 mg BID), or fluoroquinolone (cipro or levaquin). - WBC and procalcitonin improving appropriately today. - discontinued IV fluids, CARLOS improving. - transient LFT rise, may be due to meropenem as this has been reported as a cause of DILI, however improved today. 2. Mixed hyperlipidemia, acute on chronic, present on admission -control unknown continue patient's atorvastatin 3. Obesity, as evidence by BMI of 31.6, acute on chronic, present on admission -consideration will be given to dietary counseling. 4. CARLOS, resolved. Thank you for the opportunity to consult on this patient. Medicine will sign off at this time. Do not hesitate to contact us with additional questions or if reconsultation is needed. Code status: Full code Surrogate decision maker: Zuleika BENITEZ PCR: Negative DVT/VTE prophylaxis: As ordered by primary team.
[2020-11-16 07:53] VITALS: BP 136/80; PULSE 77; RESP 16; TEMP 36.8; O2SAT 96
--- NOTE | 2020-11-16 07:55 | P.DS_ITS ---
History of Present Illness History of Present Illness Date Patient Seen: 11/16/20 Time Patient Seen: 07:55 Narrative: Patient was admitted on 11/13/2020 following urgent cystoscopy and placement right ureteral stent for obstructing 7 mm right proximal ureteral calculus and clinical and laboratory picture consistent with sepsis. He remained hemodynamically stable from presentation throughout his hospital course. Interestingly, urinalysis and culture demonstrated low colony count mixed species. Blood cultures grew pansensitive E coli. And the morning of 11/16/2020 the patient is stable for discharge. Discharge Providers Provider Date of admission: 11/13/20 21:07 Discharge Date: 11/16/20 Primary care physician: Mario Miller MD Consults: 11/13/20 23:59 Consult to Respiratory Therapy Evaluate & Treat Comment: Pt uses Bipap nightly Physician Instructions: Evaluate and treat 11/14/20 02:36 Consult to Hospitalist Service Routine Comment: Consulting Provider: America Ireland Reason for consultation: CARLOS/Sepsis Has provider been notified: Yes Discharge provider: Guerita Frank MD Summary Hospital Course Discharge Diagnosis: 1. E coli urosepsis 2. Obstructing 7 mm right proximal ureteral calculus. 3. Right nephrolithiasis Hospital Course: Patient presented to the ED in the afternoon of 11/13/2020, wi th complaint of right flank pain, malaise, and fatigue. He was hemodynamically stable. Constellation of laboratories was indicative of sepsis. Imaging by CT KUB identified an obstructing 7 mm right proximal ureteral calculus. Urology was consulted and he was urgently taken to the operating room on the evening of 11/13/2020 and underwent uncomplicated placement of right ureteral stent. Is postop records generally was marked by gradual improvement in his laboratories. He remains stable hemodynamically and repeatedly reported feeling well throughout his hospitalization. Status at Discharge Cognitive/behavioral status at discharge: oriented Functional status at discharge: independent ambulation Overall status at discharge: patient is back to baseline Exam Vital Signs (past 8 hours): - 11/16/20 05:45 Temperature 98.9 F Pulse Rate 80 Respiratory Rate 16 Blood Pressure 146/78 H Pulse Oximetry 94 Oxygen Delivery Method Room Air,CPAP Oxygen Flow Rate 0 Narrative Exam Narrative: He is resting comfortably in bed in no acute distress. Objective Labs Result Diagrams: 11/16/20 05:39 11/16/20 05:39 Labs: Laboratory Results - last 24 hr 11/13/20 11/16/20 11/16/20 19:22 05:39 05:39 WBC 15.2 H RBC 4.25 L Hgb 13.5 Hct 39.8 L MCV 93.6 MCH 31.7 MCHC 33.9 RDW 13.6 Plt Count 128 L Neut % (Auto) Not Reportable Lymph % (Auto) Not Reportable [place] % (Auto) Not Reportable Eos % (Auto) Not Reportable Baso % (Auto) Not Reportable Lymph # (Auto) Not Reportable [place] # (Auto) Not Reportable Baso # (Auto) Not Reportable Total Counted 100 Seg Neutrophils % 88.0 H Band Neutrophils % 5.0 Lymphocytes % (Manual) 5.0 L Monocytes % (Manual) 1.0 L Eosinophils % (Manual) 1.0 L Neutrophils # (Manual) 66511 H RBC Morphology Normal morphology Sodium Potassium Chloride Carbon Dioxide BUN Creatinine Estimated GFR BUN/Creatinine Ratio Glucose Calcium Total Bilirubin AST ALT Alkaline Phosphatase Total Protein Albumin Globulin Albumin/Globulin Ratio Procalcitonin 31.4 H A. baumannii (PCR) Not detected Trudy albicans (PCR) Not detected C. glabrata (PCR) Not detected C. krusei (PCR) Not detected C. parapsilosis (PCR) Not detected C. tropicalis (PCR) Not detected Enterobacteriac sp PCR Detected H E. cloacae complex PCR Not detected Enterococcus sp PCR Not detected E. coli (PCR) Detected H H. influenzae (PCR) Not detected Klebsiella oxytoca PCR Not detected Klebsiella pneumoniae Not detected List. monocytogenes PCR Not detected N. meningitidis (PCR) Not detected Proteus species (PCR) Not detected Serratia marcescens PCR Not detected Staphylococcus sp PCR Not detected Staph aureus (PCR) Not detected mecA-Methicil Res Gene Not detected Streptococcus sp PCR Not detected Group A Strep (PCR) Not detected Strep agalactiae (PCR) Not detected Strep pneumoniae (PCR) Not detected P. aeruginosa (PCR) Not detected [place]/B-Vanco Res Genes Not detected KPC-Carbap Res Gene PCR Not detected 11/16/20 05:39 WBC RBC Hgb Hct MCV MCH MCHC RDW Plt Count Neut % (Auto) Lymph % (Auto) [place] % (Auto) Eos % (Auto) Baso % (Auto) Lymph # (Auto) [place] # (Auto) Baso # (Auto) Total Counted Seg Neutrophils % Band Neutrophils % Lymphocytes % (Manual) Monocytes % (Manual) Eosinophils % (Manual) Neutrophils # (Manual) RBC Morphology Sodium 139 Potassium 4.1 Chloride 114 H Carbon Dioxide 24 BUN 16 Creatinine 0.98 Estimated GFR > 60.0 BUN/Creatinine Ratio 16.3 Glucose 92 Calcium 8.6 Total Bilirubin 0.9 AST 56 ALT 74 H Alkaline Phosphatase 114 Total Protein 5.7 L Albumin 2.9 L Globulin 2.8 Albumin/Globulin Ratio 1.0 Procalcitonin A. baumannii (PCR) Trudy albicans (PCR) C. glabrata (PCR) C. krusei (PCR) C. parapsilosis (PCR) C. tropicalis (PCR) Enterobacteriac sp PCR E. cloacae complex PCR Enterococcus sp PCR E. coli (PCR) H. influenzae (PCR) Klebsiella oxytoca PCR Klebsiella pneumoniae List. monocytogenes PCR N. meningitidis (PCR) Proteus species (PCR) Serratia marcescens PCR Staphylococcus sp PCR Staph aureus (PCR) mecA-Methicil Res Gene Streptococcus sp PCR Group A Strep (PCR) Strep agalactiae (PCR) Strep pneumoniae (PCR) P. aeruginosa (PCR) [place]/B-Vanco Res Genes KPC-Carbap Res Gene PCR [facility] Medical History Chicken pox (195) Excessive daytime sleepiness Foot pain (2016) Fractures (1965) Hayfever (1969) Hemorrhoids (2001) Herpes (1970) Macular pucker, left eye (2016) Measles (1952) Mumps (1950) Nocturnal hypoxemia Obesity (BMI 30-39.9) Obstructive sleep apnea Osteoarthritis (2009) Pigmented skin lesion Precancerous skin lesion (2016) Right nephrolithiasis Right ureteral calculus Sepsis Shoulder pain (2015) Tinnitus (1984) Surgical History Anesthesia History of eye surgery (2016) History of hernia repair (03/2013) History of hernia repair (03/2012) Status post rotator cuff repair (2015) Status post wrist surgery (1967) Status post wrist surgery (1994) Family History Grandfather Cancer Father Congenital heart disease Mother Congenital heart disease Grandmother No problems noted. Grandmother No problems noted. Grandfather No problems noted. Brother No problems noted. Brother No problems noted. Social History marital status: household members: spouse lives independently: Yes Smoking Status: Never smoker second hand exposure: No alcohol intake: never substance use type: does not use Discharge Assessment & Plan Assessment and Plan Assessment: 1. Stable postoperative day number 3 status post cystoscopy and urgent placement right ureteral stent for E coli urosepsis. Plan: 1. Discharge home today. 2. Rx for ciprofloxacin. 3. Will schedule outpatient return for right ureteroscopic laser lithotripsy. Discharge Plan Discharge Plan Patient Disposition: Home Provider Discharge Comment: Contact the urology clinic to schedule postop appointment. Discharge orders & Medications Prescriptions: New ciprofloxacin HCl [Cipro] 500 mg tablet 500 mg PO BID Qty: 20 RF: 0 Continued [FISH OILS ] See Rx Instructions .ROUTE .COMPLEX Qty: 0 RF: 0 Centrum Silver 0.4-300-250 mg-mcg-mcg tablet 1 tab PO DAILY RF: 0 acyclovir 400 mg tablet See Rx Instructions .ROUTE .COMPLEX Qty: 90 RF: 3 atorvastatin [Lipitor] 10 mg tablet 10 mg PO HS Qty: 90 RF: 3 Follow up/Referrals: Mario Miller MD [Primary Care Provider] - Guerita Frank MD [Physician] - Diet/Activity/Treatments Diet: Diet as Tolerated Activity: Ad nicci Skin/Wound/Dressing Care Report to your healthcare provider any signs of infection, such as:: chills, fever and increased pain Visit Report/Discharge Packet Instructions: DI for Cystoscopy Stand Alone Forms: Surgery Discharge Discharge Data Primary Care Provider: Mario Miller
[2020-11-16] MEDS: ENOXAPARIN 40 MG/0.4 ML SYRINGE SUBCUT (08:14)
[2020-11-16] MEDS: ACYCLOVIR 400 MG TABLET PO (08:14)
[2020-11-16] MEDS: MULTIVITAMIN 1 TABLET 1 TAB PO (08:14)
--- NOTE | 2020-11-16 10:46 | PC.NURSE ---
Discharge note: Patient awake, alert, and pleasant. Urinary catheter removed, 500 ml out, clear yellow urine. Voided post Martin removal without any issues. Discharge instructions given to patient, discussed importance of F/U with Dr. Frank, antibiotic adherence, and s/sx of infection. Verbalized understanding of instructions. Home via private vehicle, accompanied by friend.
== END 2020-11-16 10:50 | disposition home or self-care (01) | DRG 872 ==
LOC: ED 20:59 → AC 21:08
PROVIDERS: Emergency Medicine; Internal Medicine; Nurse Practitioner Family; Admitting Provider Specialist; Emergency Provider Emergency Medicine; Family Provider Family Medicine; PCP Family Medicine; Referring Provider Emergency Medicine; Visit Provider Specialist
PROC: 0T9680Z Drainage of Right Ureter with Drainage Device, Via Natural or Artificial Opening Endoscopic (ICD-10-PCS; principal; 2020-11-13 20:30)
DX: A41.51 Sepsis due to Escherichia coli [E. coli] (principal); N17.9 Acute kidney failure, unspecified; N13.2 Hydronephrosis with renal and ureteral calculous obstruction; R65.20 Severe sepsis without septic shock; D70.9 Neutropenia, unspecified; E78.2 Mixed hyperlipidemia; E66.9 Obesity, unspecified; Z68.31 Body mass index [BMI] 31.0-31.9, adult; Z20.822 Contact with and (suspected) exposure to COVID-19
CPT/HCPCS: 36415; 51702; 52330; 71045; 74018; 74177; 76000; 80053; 81001; 81003; 83605; 83690; 84145; 85007; 85025; 87040; 87077; 87086; 87150; 87186; 87205; 87635; 93005; 93010; 96361; 96365; 96367; 96368; 96375; 99221; 99231; 99238; 99285; 99291; C9803; J0131; J0295; J0330; J1100; J1200; J1650; J1885; J1956; J2185; J2270; J2405; J2704; J3010; Q9967

== ENCOUNTER → 2020-11-30 08:13 | Outpatient (CLI) | payer MEDICARE, SELFPAY ==
[2020-11-13 21:16] VITALS: BMI 31.6
[2020-11-30 10:51] LABS: COVID19 -Nasal RAPID Negative (Negative)
== END ==
PROVIDERS: Family Provider Family Medicine; PCP Family Medicine; Visit Provider Specialist
DX: Z20.822 Contact with and (suspected) exposure to COVID-19 (principal)
CPT/HCPCS: 87635; C9803

== ENCOUNTER 2020-12-03 08:28 | Day surgery (SDC) | payer MEDICARE, SELFPAY ==
[2020-11-13 21:16] VITALS: BMI 31.6
[2020-11-27 15:04] VITALS: BMI 32.8
--- NOTE | 2020-12-03 | DI.RAD.S_ITS ---
PROCEDURE: XR ABDOMEN 1V INDICATIONS: right stent placement TECHNIQUE: One view of the abdomen acquired. COMPARISON: None. FINDINGS: Partially visualized right ureteral stent Dictated by: Sp Petersen M.D. on 12/03/2020 at 13:01 Approved by: Sp Petersen M.D. on 12/03/2020 at 13:01
[2020-12-03] MEDS: LACTATED RINGERS 1,000 ML 42 ML IV ×2 (08:49→11:28)
[2020-12-03 08:50] VITALS: BP 143/83; PULSE 83; RESP 16; TEMP 36.8; O2SAT 96; BMI 32.8
[2020-12-03] MEDS: GENTAMICIN 160 MG in SODIUM CHLORIDE 0.9% 100 ML 104 ML IV (09:03)
--- NOTE | 2020-12-03 09:32 | PM.PREOP ---
Pre-operative Note Interval Note History & Physical reviewed/Exam performed by Physician: Yes Changes to H&P: No
--- NOTE | 2020-12-03 10:13 | PM.PREOP ---
Pre-operative Note Interval Note History & Physical reviewed/Exam performed by Physician: Yes Changes to H&P: Yes H&P completed within 30 days and has changed as indicated here:: In the interval the patient underwent cystoscopy right ureteral stone manipulation without removal and placement right ureteral stent on 11/13/2020.
[2020-12-03] MEDS: AMPICILLIN/SULBACTAM 3 GM 3 GM in SODIUM CHLORIDE 0.9% 100 ML IV (10:25)
--- NOTE | 2020-12-03 10:47 | SUR.OPER ---
Lithotomy on padded OR bed, head on pillow, arms secured on padded arm boards at <90 degrees abduction. Legs secured in padded yellow fins stirrups.
[2020-12-03] MEDS: BELLADONNA/OPIUM SUPPOSITORIES 1 EACH PR (10:58)
[2020-12-03] MEDS: IOPAMIDOL 15 ML VIAL INJ (10:59)
--- NOTE | 2020-12-03 11:35 | PM.OP.1 ---
Operative Date/Time/Diagnoses Date of procedure: 12/03/20 Time of procedure: 11:35 Pre-op diagnosis: 1. History of 7 mm obstructing right proximal ureteral calculus. 2. Nonobstructing 4 mm right renal calculus. 3. History of E coli sepsis. 4. Retained right ureteral stent Post-op diagnosis: same Procedure & Clinicians Procedure: 1. Cystoscopy/right ureteroscopic laser lithotripsy. 2. Cystoscopy/right retrograde pyelogram. 3. Cystoscopy right/right ureteral stent exchange. Same procedure as scheduled: Yes Indications: 1. History of 7 mm obstructing right proximal ureteral calculus. 2. 4 mm nonobstructing right renal calculus. 3. History of E coli sepsis. 4. Retained right ureteral stent Click Yes if Unassisted: Yes Anesthesia Type: General Operative Notes Findings: 1. Urethra-normal. 2. External sphincter-gaping. 3. Prostate-surgically absent. 4. Bladder-mild to moderate erythema and edema surrounding the right ureteral orifice with and tacked right ureteral stent. Remainder of bladder urothelium was unremarkable associated with 1+ trabeculation. Left ureteral orifice was normal in appearance and position. Closure Type: not applicable Specimen(s): none sent Applied: other (Six [place] by 22-32 cm multi-length stent) Estimated Blood Loss (mL): 0 Blood products transfused: none Tourniquet time (min): 0 Procedure in detail: The patient was positioned supine was administered general anesthesia. He was then repositioned in semi lithotomy and the lower abdomen, genitalia, and groin were then prepped and draped in sterile fashion. The 22 [place] panendoscope was then passed in lower urinary tract with the findings as described above. Foreign body grasper was then used to engage the distal tip of the indwelling right ureteral stent. The stent was then withdrawn just beyond the urethral meatus. A 0.45 hybrid guidewire was advanced through the aperture of the indwelling stent advanced proximally under direct and fluoroscopic guidance. The indwelling stent was then backloaded off the wire and discarded. A dual lumen ureteral access sheath was advanced over this wire, again under direct and fluoroscopic guidance. A 2nd 0.35 hybrid guidewire was then advanced through the accessory lumen of the dual-lumen ureteral access sheath, again under direct fluoroscopic guidance. Now the dual lumen ureteral access sheath was backloaded off both wires. One of the wires was carefully secured to the drape. The other wire was insinuated in the distal working channel of the flexible ureteral scope. The flexible ureteral scope was then advanced proximally, again under direct and fluoroscopic guidance. The 4 mm stone was located in an interpolar calyx with a narrow neck. The 7 mm calculus was found in a lower pole calyx. A 200 micron laser fiber was selected. All operating room personnel and patient were fitted with laser safety eyewear. Laser lithotripsy was then commenced on the 7 mm calculus with excellent result in fragmentation. Next, attention was turned to the 4 mm calculus which was adherent to the underlying urothelium within the narrow necked calyx. Laser lithotripsy was then commenced, again with excellent resultant fragmentation. The flexible ureteral scope was then backloaded onto the patient and the ureter was visualized throughout the length and was absent of stone clot or injury. Next, the safety guidewire was then front loaded into the 22 [place] panendoscope and the scope was then advanced into the bladder. A 6 [place] by 22-32 cm multi-length stent was then selected. This was then advanced over the hybrid guidewire under direct and fluoroscopic guidance. A RETRIEVAL LINE WAS LEFT ATTACHED. The bladder was then drained completely and all instrumentation was removed. The patient was then repositioned in supine, awakened, and then transported recovery in stable condition. Complications: none Post-operative Condition: stable Disposition: PACU Plan for aftercare: Discharge home.
[2020-12-03 11:40] VITALS: BP 131/81; PULSE 74; RESP 12; TEMP 36.9; O2SAT 95
[2020-12-03 11:45] VITALS: BP 120/66; PULSE 65; RESP 14; O2SAT 96
[2020-12-03 11:49] VITALS: BP 115/67; PULSE 74; RESP 13; O2SAT 96
[2020-12-03 12:04] VITALS: BP 103/55; PULSE 71; RESP 14; O2SAT 96
[2020-12-03 12:32] VITALS: BP 118/74; PULSE 57; RESP 16; TEMP 36.6; O2SAT 97
== END 2020-12-03 12:36 | disposition home or self-care (01) ==
PROVIDERS: Family Provider Family Medicine; PCP Nurse Practitioner Family; Referring Provider Specialist; Visit Provider Specialist
PROC: (CPT 52356; principal; 2020-12-03 09:45)
DX: N20.2 Calculus of kidney with calculus of ureter (principal)
CPT/HCPCS: 52356; 74018; 76000; 82962; J0295; J2405; J2704; J3010

== ENCOUNTER → 2020-12-07 10:38 | Outpatient (CLI) | payer MEDICARE, SELFPAY ==
[2020-12-04 11:58] VITALS: BMI 31.6
[2020-12-16 12:56] LABS: Ca oxalate dihydrate 20 % (.); Ca oxalate monohydr 80 % (.); Size 1x3 mm (.)
== END ==
PROVIDERS: Family Provider Family Medicine; PCP Nurse Practitioner Family; Referring Provider Specialist; Visit Provider Specialist
DX: N20.0 Calculus of kidney (principal)
CPT/HCPCS: 82365

== ENCOUNTER → 2021-04-03 10:28 | Outpatient (CLI) | payer MEDICARE, SELFPAY ==
[2021-03-11 10:07] VITALS: BMI 31.6
--- NOTE | 2021-04-03 11:05 | DI.CT.S_ITS ---
PROCEDURE: CT KIDNEY URETER BLADDER (KUB) INDICATIONS: Renal Calculi TECHNIQUE: Axial sections were acquired from the lung bases to the pubic symphysis. Coronal and sagittal reformats were performed. For radiation dose reduction, the following was used: automated exposure control, adjustment of mA and/or kV according to patient size. COMPARISON: [facility], CT, CT KIDNEY URETER BLADDER (KUB), 03/14/2019, 16:57. FINDINGS: Image quality: Excellent. Lung bases: Unremarkable. Heart: No significant findings. URINARY: Right Kidney: Interval decrease of stone burden in the right kidney. Minimal faint middle pole calcification. 3 mm nonobstructing lower pole stone. No hydronephrosis. Right Ureter: No hydroureter. Left Kidney: No stones or hydronephrosis. Left Ureter: No hydroureter. Bladder: Decompressed. No bladder stones. ABDOMEN: Liver: Small benign-appearing low-density liver lesions are stable. Gallbladder: Unremarkable. Biliary ducts: Unremarkable. Pancreas: Unremarkable. Spleen: Unremarkable. Adrenal Glands: Unremarkable. Stomach and Bowel: Stomach, small bowel loops, and colon are unremarkable. Peritoneum: No abnormal intraperitoneal fluid. No free air. Ventral Wall: No hernia. Abdominal Nodes: No enlarged retroperitoneal or mesenteric lymph nodes. Vessels: Aorta and inferior vena cava are normal in size. PELVIS: Pelvic Organs: Unremarkable. Pelvic Nodes: Unremarkable. Miscellaneous: Small fat containing left inguinal hernia. No inguinal adenopathy. Bones: Lumbar degenerative change. No compression fractures. No lytic or blastic bony lesions. IMPRESSION: 1. Interval decrease in the right renal stone burden. No obstructing stones. No hydronephrosis. 2. No evidence of acute abdominal process. Dictated by: Perry Sullivan M.D. on 04/03/2021 at 12:45 Approved by: Perry Sullivan M.D. on 04/03/2021 at 12:49
== END ==
PROVIDERS: Family Provider Family Medicine; PCP Nurse Practitioner Family; Referring Provider Specialist; Visit Provider Specialist
DX: N20.1 Calculus of ureter (principal)
CPT/HCPCS: 74176

== ENCOUNTER → 2021-04-17 07:44 | Outpatient (CLI) | payer MEDICARE, SELFPAY ==
[2021-03-11 10:07] VITALS: BMI 31.6
[2021-04-17 08:58] LABS: Uric Acid 4.8 mg/dL (3.5-8.5)
[2021-04-17 09:29] LABS: Prostate Specific Antigen 0.325 ng/mL (0.10-4.00)
[2021-04-18 12:06] LABS: Calcium 8.9 mg/dL (8.6-10.2); Parathyroid Hormone, Intact 31 pg/mL (15-65)
== END ==
PROVIDERS: Family Provider Family Medicine; PCP Nurse Practitioner Family; Referring Provider Specialist; Visit Provider Specialist
DX: R97.20 Elevated prostate specific antigen [PSA] (principal); N20.1 Calculus of ureter
CPT/HCPCS: 36415; 82310; 83970; 84153; 84550

== ENCOUNTER → 2021-06-26 07:31 | Outpatient (CLI) | payer MEDICARE, SELFPAY ==
[2021-03-11 10:07] VITALS: BMI 31.6
== END ==
PROVIDERS: Family Provider Family Medicine; PCP Nurse Practitioner Family; Referring Provider Specialist; Visit Provider Specialist
DX: Z85.46 Personal history of malignant neoplasm of prostate (principal)
CPT/HCPCS: 36415; 84153

== ENCOUNTER → 2021-08-21 09:30 | Outpatient (CLI) | payer MEDICARE, SELFPAY ==
[2021-07-03 08:56] VITALS: BMI 31.6
[2021-08-21 10:45] LABS: Prostate Specific Antigen 0.623 ng/mL (0.10-4.00)
== END ==
PROVIDERS: Family Provider Family Medicine; PCP Nurse Practitioner Family; Referring Provider Specialist; Visit Provider Specialist
DX: R97.20 Elevated prostate specific antigen [PSA] (principal)
CPT/HCPCS: 36415; 84153

== ENCOUNTER → 2021-09-11 13:11 | Outpatient (CLI) | payer MEDICARE, SELFPAY ==
[2021-07-03 08:56] VITALS: BMI 31.6
--- NOTE | 2021-09-11 13:13 | DI.MRI.S_ITS ---
PROCEDURE: MR PELIS WO/W CON INDICATIONS: prostate volume studies TECHNIQUE: Coronal HASTE, sagittal T2 FSE, axial T1 FSE, axial and coronal nonbreath-hold T2 FSE. Axial dynamic VIBE during administration of contrast. Post-contrast axial and coronal VIBE/2-D FLASH with fat saturation from the iliac crests to the symphysis. Optional diffusion weighted imaging and ADC may be performed. COMPARISON: [facility], CT, CT ABDOMEN PELVIS W CON, 11/13/2020, 17:31. FINDINGS: Image quality: Excellent. Bowel and peritoneum: No pathologic free pelvic fluid. Inferior colon and small bowel loops are normal in caliber. Genitourinary system: No residual prostate tissue. No suspicious enhancing mass in the pelvis. Bladder wall is normal in thickness. Distal ureters are non distended. Nodes and vessels: No pathologic pelvic or inguinal adenopathy by size criteria. Iliac vessels are normal in caliber. Soft tissues: No inguinal hernias. Bones: There is a single enhancing lesion along the right posterior aspect of the L3 vertebral body at the superior endplate which corresponded to a lucent lesion seen previously and may be a degenerative Schmorl's node. Marrow signal is otherwise normal. IMPRESSION: 1. Prostatectomy without evidence of residual prostate tissue or suspicious enhancing mass in the pelvis. 2. There is an L3 vertebral body lesion which corresponds to a lucent lesion seen prior CT scan. While this may be a Schmorl's node, osseous metastasis cannot be excluded. 3. No adenopathy in the pelvis. Dictated by: Hansa Reza M.D. on 09/11/2021 at 16:44 Approved by: Hansa Reza M.D. on 09/11/2021 at 16:52
== END ==
PROVIDERS: Family Provider Family Medicine; PCP Nurse Practitioner Family; Referring Provider Specialist; Visit Provider Specialist
DX: C61 Malignant neoplasm of prostate (principal); M89.9 Disorder of bone, unspecified; Z15.01 Genetic susceptibility to malignant neoplasm of breast; Z15.09 Genetic susceptibility to other malignant neoplasm; Z15.89 Genetic susceptibility to other disease
CPT/HCPCS: 72197; A9579

== ENCOUNTER → 2021-11-25 08:42 | Outpatient (CLI) | payer MEDICARE, SELFPAY ==
[2021-07-03 08:56] VITALS: BMI 31.6
[2021-11-25 10:12] LABS: Prostate Specific Antigen < 0.064 ng/mL (0.10-4.00)
== END ==
PROVIDERS: Family Provider Family Medicine; Referring Provider Specialist; Visit Provider Specialist
DX: R97.20 Elevated prostate specific antigen [PSA] (principal)
CPT/HCPCS: 36415; 84153

== ENCOUNTER → 2022-01-09 16:18 | Outpatient (CLI) | payer MEDICARE, SELFPAY ==
[2021-12-02 14:48] VITALS: BMI 31.6
[2022-01-09 16:35] LABS: Hematocrit 42.2 % (41-53); Hemoglobin 14.9 g/dL (13.5-17.5); Mean Corpuscular HGB Conc 35.3 % (30-36); Mean Corpuscular Hemoglobin 32.7 PG (26-34); Mean Corpuscular Volume 92.4 fL (80-100); Platelet Count 187 X10^3/uL (150-400); Red Blood Cell Count 4.57 X10^6/uL (4.5-5.9); Red Cell Distribution Width 13.3 % (11.6-14.8); White Blood Cell Count 4.3 X10^3/uL (4.5-11.0)
[2022-01-09 16:54] LABS: Alanine Aminotransferase 44 IU/L (<50); Albumin 4.4 g/dL (3.5-5.0); Albumin Globulin Ratio 1.3 (1.0-2.8); Alkaline Phosphatase 67 U/L (38-126); Aspartate Aminotransferase 40 IU/L (17-59); BUN Creatinine Ratio 19.6 (6-22); Bilirubin Total 0.7 mg/dL (0.2-1.3); Blood Urea Nitrogen 21 mg/dL (9-20); Calcium 9.2 mg/dL (8.4-10.2); Carbon Dioxide 29 mmol/L (22-32); Chloride 103 mmol/L (98-107); Cholesterol 176 mg/dL (140-199); Estimated Glomerular Filt Rate > 60 mL/min (>60); Globulin 3.4 g/dL (1.7-4.1); Glucose 100 mg/dL (80-110); HDL Cholesterol 67 mg/dL (40-60); HEMOLYSIS 17 (0-50); LDL Cholesterol Calculated 84 mg/dL (<100); Potassium 4.7 mmol/L (3.4-5.1); Sodium 138 mmol/L (137-145); Total Protein 7.8 g/dL (6.3-8.2); Triglycerides 126 mg/dL (35-150)
[2022-01-09 18:27] LABS: TSH w/ Reflex to FT4 2.73 uIU/mL (0.47-4.68)
== END ==
PROVIDERS: Family Provider Family Medicine; PCP Internal Medicine; Referring Provider Internal Medicine; Visit Provider Internal Medicine
DX: C61 Malignant neoplasm of prostate (principal); E78.2 Mixed hyperlipidemia; R97.21 Rising PSA following treatment for malignant neoplasm of prostate
CPT/HCPCS: 36415; 80053; 80061; 84443; 85027

== ENCOUNTER → 2022-03-31 14:13 | Outpatient (CLI) | payer MEDICARE, SELFPAY ==
[2022-02-25 13:55] VITALS: BMI 31.6
--- NOTE | 2022-03-31 14:15 | DI.RAD.S_ITS ---
PROCEDURE: XR KUB INDICATIONS: Urinary Calculi TECHNIQUE: One view of the abdomen acquired. COMPARISON: [facility], , XR KUB, 11/15/2020, 8:19. FINDINGS: Surgical changes and devices: None. Bowel: Bowel gas pattern is normal. Soft tissues: No suspicious abdominal calcifications. Visualized solid organ contours appear normal in size. Bones: No suspicious bony lesions. IMPRESSION: Negative examination. Dictated by: Lito Jasmine M.D. on 03/31/2022 at 16:16 Transcribed by: CARITO on 03/31/2022 at 16:16 Approved by: Lito Jasmine M.D. on 03/31/2022 at 16:53
[2022-03-31 16:05] LABS: Prostate Specific Antigen < 0.064 ng/mL (0.10-4.00)
== END ==
PROVIDERS: Family Provider Family Medicine; PCP Internal Medicine; Referring Provider Specialist; Visit Provider Specialist
DX: C61 Malignant neoplasm of prostate (principal); N20.9 Urinary calculus, unspecified; R97.21 Rising PSA following treatment for malignant neoplasm of prostate
CPT/HCPCS: 36415; 74018; 84153

== ENCOUNTER → 2022-06-24 11:00 | Outpatient (CLI) | payer MEDICARE, SELFPAY ==
[2022-02-25 13:55] VITALS: BMI 31.6
[2022-06-24 13:40] LABS: Prostate Specific Antigen < 0.064 ng/mL (0.10-4.00)
== END ==
PROVIDERS: Family Provider Family Medicine; PCP Internal Medicine; Referring Provider Specialist; Visit Provider Specialist
DX: C61 Malignant neoplasm of prostate (principal); Z15.01 Genetic susceptibility to malignant neoplasm of breast; Z15.09 Genetic susceptibility to other malignant neoplasm; Z15.89 Genetic susceptibility to other disease
CPT/HCPCS: 36415; 84153

== ENCOUNTER → 2022-07-16 07:13 | Outpatient (CLI) | payer MEDICARE, SELFPAY ==
[2022-02-25 13:55] VITALS: BMI 31.6
[2022-07-24 19:07] LABS: Testosterone % Fr + Wkly bound 20.7 % (9.0-46.0); Testosterone Fr+Wkly bound 5.2 ng/dL (40.0-250.0); Testosterone, Total 25.1 ng/dL (264.0-916.0)
== END ==
PROVIDERS: Family Provider Family Medicine; PCP Internal Medicine; Referring Provider Specialist; Visit Provider Specialist
DX: C61 Malignant neoplasm of prostate (principal); N52.31 Erectile dysfunction following radical prostatectomy; Z15.01 Genetic susceptibility to malignant neoplasm of breast; Z15.09 Genetic susceptibility to other malignant neoplasm; Z15.89 Genetic susceptibility to other disease
CPT/HCPCS: 36415; 84403

== ENCOUNTER 2022-08-18 12:04 | Day surgery (SDC) | payer MEDICARE, SELFPAY ==
[2022-02-25 13:55] VITALS: BMI 31.6
[2022-08-18] VITALS (11 sets, daily range): BP systolic 124–170; BP diastolic 58–91; PULSE 93–99; RESP 12–24; TEMP 36.1–37.1; O2SAT 91–98; BMI 32.6
[2022-08-18] MEDS: LACTATED RINGERS 1,000 ML 21 ML IV ×3 (12:42→16:42)
[2022-08-18] MEDS: VANCOMYCIN 1,000 MG/200 ML PIGGYBACK 200 MG IV (12:48)
--- NOTE | 2022-08-18 13:13 | PM.PREOP ---
Pre-operative Note COVID-19 Criteria for continued procedure: Possibility delay results in more complex future surgery or treatment, Deterioration of the patient's condition or overall health, Delay expected to result in less-positive ultimate med/surg outcome and Non-surgical alternatives not available or appropriate per current SOC Interval Note History & Physical reviewed/Exam performed by Physician: Yes Changes to H&P: No
[2022-08-18] MEDS: ACETAMINOPHEN IV 1,000 MG/100 ML VIAL 400 MG IV (14:12)
--- NOTE | 2022-08-18 15:09 | SUR.OPER ---
Lithotomy on padded OR bed, head on pillow, arms secured on padded arm boards at <90 degrees abduction. Legs secured in padded yellow fins stirrups.
[2022-08-18] MEDS: BUPIVACAINE LIPOSOME 266 MG/20 ML VIAL INJ (15:12)
[2022-08-18] MEDS: GENTAMICIN 160 MG in SODIUM CHLORIDE 0.9% 100 ML 104 MG IV (15:18)
[2022-08-18] MEDS: BUPIVACAINE 0.5% (PF) 30 ML, EPINEPHrine 0.15 MG INJ (15:25)
--- NOTE | 2022-08-18 17:07 | PM.OP.1 ---
Operative Date/Time/Diagnoses Date of procedure: 08/18/22 Time of procedure: 16:50 Pre-op diagnosis: 1. Stress urinary incontinence. Post-op diagnosis: same Procedure & Clinicians Procedure: 1. Placement AMS 800 artificial urinary sphincter (see GTIN,REF, and LOT product labeled numbers). 2. Complexity modifier should be attached to this operation as it was greater than 150% typical duration due to extensive post radiation fibrosis. Same procedure as scheduled: Yes Indications: 1. Stress urinary incontinence. 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 The tissues line between the inner and anterior vulvar curve and pubic arch were particularly fibrotic and dense. The conditions required meticulous and painstaking blunt, sharp, and cautery dissection to create circumferential window around the bulbar segment to allow measurement and placement of artificial urinary sphincter. Closure Type: primary Specimen(s): none sent Estimated Blood Loss (mL): 15 Blood products transfused: none Procedure in detail: Patient was positioned in supine and administered general anesthesia. He was then repositioned in semi lithotomy and the abdomen, genitalia, and groin were then prepped and draped in sterile fashion. A 16 [place] Martin catheter was inserted and lower urinary tract in the bladder contents drained. It was then clamped for purposes of intraoperative urethral localization and manipulation. Solution of 0.5% Marcaine with epinephrine was then used to infiltrate the skin and subcutaneous tissue on the midline perineal raphe. A sharp midline incision was created and then blunt dissection was conducted to divide the midline perineal fat in perineal body down to the level of the corpus spongiosum of the bulbar segment. As mentioned above under findings, meticulous and painstaking dissection was required laterally and anterior to the corpus spongiosum, taking care to avoid perforation or unnecessary bleeding. Once a window was created, became a bit more straight forward to identify the appropriate plane to pursue distally and proximally. An antibiotic soaked gauze was then placed in the space and attention was turned to the area just above the right pubic symphysis. The skin was infiltrated with local anesthetic and a small transverse incision was created. Subcutaneous fat and Arnaud's fascia was then divided using blunt technique. Blunt technique was continued down the level of the rectus fascia. Just above the pubic bone of the right ramus the rectus fascia was perforated bluntly with the tips of the Metzenbaum scissors. There was extensive scarring in the retropubic space and an appropriate plane could not be developed on the surface of the periosteum. Therefore, the index finger was insinuated beneath the rectus musculature and a plane was developed superiorly in the extraperitoneal pelvic/preperitoneal space. A 61-70 cm reservoir was selected and this was positioned in the space after pre-placed 2-0 Vicryl were positioned in this fascial opening using a simple 4 quadrant pursestring technique. The reservoir was then filled with 25 cc sterile saline in the line was bled of air. The Vicryl suture was then tied down securing the position of the reservoir. Now the pump component was advanced through this same right suprapubic incision into the anterior midline scrotum with the device positioned superficially so that the bulb and the activation button could be readily palpated. Now the bulbar urethra was measured circumferentially at 4 cm. Once prepared it was positioned and it was decided at that point that it was too tight and created a slight hourglass when deflated. I then requested a 4.5 cm which was likewise prepared. The 4.5 cm cuff was then positioned appropriately around the proximal bulbar. The fit appeared to be very satisfactory. The urethral cuff tubing was then passed with a balloon trocar to the right, anteriorly, and cranially and brought into the right suprapubic incision. Now with shots placed appropriately, straight barrel connectors were utilized to make connections between the reservoir and the pump, and from the pump to the cuff. The suprapubic incision was then reapproximated the level of the Arnaud's fascia with running 2 0 Monocryl. The skin was then infiltrated with Exparel. The skin was then reapproximated with running 4-0 subcuticular 4-0 Monocryl. The perineal wound was closed in 3 layers with 2-0 PDS, an attempt to obliterate the space. The skin was then infiltrated with undiluted Exparel. The skin was then reapproximated with a running subcuticular 4 Monocryl. The skin surfaces were cleaned and dried. Telfa was then tailored appropriately to cover each of the incisions. Transparent Tegaderm was then applied over each of the incisions. Martni catheter balloon was deflated and the catheter was removed. The patient was fitted with adult incontinence products, was awakened, transferred to [facility], and then transported recovery in stable condition. Complications: none Post-operative Condition: stable Disposition: PACU Plan for aftercare: Discharge home.
== END 2022-08-18 18:34 | disposition home or self-care (01) ==
PROVIDERS: Family Provider Family Medicine; PCP Internal Medicine; Referring Provider Specialist; Visit Provider Specialist
PROC: (CPT 53445; principal; 2022-08-18 13:45)
DX: N39.3 Stress incontinence (female) (male) (principal); Z85.46 Personal history of malignant neoplasm of prostate
CPT/HCPCS: 53445; 82962; C1771; C9290; J0131; J0171; J0330; J1100; J2405; J2704; J3010

== ENCOUNTER → 2023-03-05 12:36 | Outpatient (CLI) | payer MEDICARE, SELFPAY ==
[2022-08-19 10:34] VITALS: BMI 31.6
[2023-03-05 13:13] LABS: Hematocrit 44.2 % (41-53); Hemoglobin 15.2 g/dL (13.5-17.5); Mean Corpuscular HGB Conc 34.3 % (30-36); Mean Corpuscular Hemoglobin 31.8 PG (26-34); Mean Corpuscular Volume 92.5 fL (80-100); Platelet Count 207 X10^3/uL (150-400); Red Blood Cell Count 4.78 X10^6/uL (4.5-5.9); White Blood Cell Count 5.4 X10^3/uL (4.5-11.0)
[2023-03-05 13:38] LABS: Alanine Aminotransferase 25 IU/L (<50); Albumin 4.1 g/dL (3.5-5.0); Albumin Globulin Ratio 1.6 (1.0-2.8); Alkaline Phosphatase 61 U/L (38-126); Aspartate Aminotransferase 28 IU/L (17-59); Bilirubin Total 0.5 mg/dL (0.2-1.3); Blood Urea Nitrogen 17 mg/dL (9-20); Calcium 9.4 mg/dL (8.4-10.2); Carbon Dioxide 24 mmol/L (22-32); Chloride 105 mmol/L (98-107); Cholesterol 156 mg/dL (140-199); Estimated Glomerular Filt Rate > 60 mL/min (>60); Globulin 2.5 g/dL (1.7-4.1); Glucose 117 mg/dL (80-110); HDL Cholesterol 61 mg/dL (40-60); HEMOLYSIS < 15 (0-50); LDL Cholesterol Calculated 66 mg/dL (<100); Potassium 4.3 mmol/L (3.4-5.1); Sodium 138 mmol/L (137-145); Total Protein 6.6 g/dL (6.3-8.2); Triglycerides 147 mg/dL (35-150)
[2023-03-05 14:07] LABS: Prostate Specific Antigen < 0.064 ng/mL (0.10-4.00)
[2023-03-05 14:08] LABS: Testosterone 199 ng/dL (71.8-623)
== END ==
PROVIDERS: Family Provider Family Medicine; PCP Internal Medicine; Referring Provider Internal Medicine; Visit Provider Internal Medicine
DX: Z85.46 Personal history of malignant neoplasm of prostate (principal)
CPT/HCPCS: 36415; 80053; 80061; 84153; 84403; 85027

== ENCOUNTER → 2023-04-07 10:05 | Outpatient (CLI) | payer MEDICARE, SELFPAY ==
[2022-08-19 10:34] VITALS: BMI 31.6
[2023-04-07 12:56] LABS: Prostate Specific Antigen < 0.064 ng/mL (0.10-4.00)
== END ==
PROVIDERS: Family Provider Family Medicine; PCP Internal Medicine; Referring Provider Specialist; Visit Provider Specialist
DX: Z85.46 Personal history of malignant neoplasm of prostate (principal); C61 Malignant neoplasm of prostate; Z15.01 Genetic susceptibility to malignant neoplasm of breast; Z15.09 Genetic susceptibility to other malignant neoplasm; Z15.89 Genetic susceptibility to other disease
CPT/HCPCS: 36415; 84153

== ENCOUNTER → 2023-09-02 13:16 | Outpatient (CLI) | payer MEDICARE, SELFPAY ==
[2023-07-15 11:05] VITALS: BMI 31.6
--- NOTE | 2023-09-02 13:19 | DI.RAD.S_ITS ---
PROCEDURE: XR LUMBAR SPINE 2-3V INDICATIONS: LOW BACK PAIN TECHNIQUE: 3 views of the lumbar spine were acquired. COMPARISON: [facility], CR, XR LUMBAR SPINE 2-3V, 03/09/2019, 10:18. FINDINGS: Bones: Five [id number] vertebrae are present. Trace listhesis L3-4 and L4-5. No significant change compared to remote prior exam. Prominent facet sclerosis from L3 through S1. Severe disc height loss L5-S1, minimally progressed compared to prior. No vertebral body compression fractures. No suspicious bony lesions. Soft tissues: Overlying bowel gas pattern is normal. No suspicious soft tissue calcifications. IMPRESSION: Stable bone alignment compared to the prior exam with prominent lower lumbar facet arthropathy. Minimally progressed, but severe disc height loss at L5-S1. Dictated by: Hansa Reza M.D. on 09/02/2023 at 15:44 Approved by: Hansa Reza M.D. on 09/02/2023 at 15:46
== END ==
PROVIDERS: Family Provider Family Medicine; PCP Internal Medicine; Referring Provider Chiropractor; Visit Provider Chiropractor
DX: M47.816 Spondylosis without myelopathy or radiculopathy, lumbar region (principal); M54.50 Low back pain, unspecified
CPT/HCPCS: 72100

== ENCOUNTER → 2024-01-27 07:17 | Outpatient (CLI) | payer MEDICARE, SELFPAY ==
[2023-07-15 11:05] VITALS: BMI 31.6
[2024-01-27 08:49] LABS: HEMOLYSIS < 15 (0-50)
[2024-01-27 08:57] LABS: Alanine Aminotransferase 28 IU/L (<50); Albumin Globulin Ratio 1.4 (1.0-2.8); Alkaline Phosphatase 79 U/L (38-126); Aspartate Aminotransferase 33 IU/L (17-59); Bilirubin Unconjugated 0.9 mg/dL (0.0-1.1); Globulin 2.8 g/dL (1.7-4.1); Total Protein 6.8 g/dL (6.3-8.2)
[2024-01-27 19:21] LABS: Prostate Specific Antigen 0.113 ng/mL (0.10-4.00)
[2024-02-01 02:06] LABS: Testosterone % Fr + Wkly bound 21.6 % (9.0-46.0); Testosterone Fr+Wkly bound 57.1 ng/dL (40.0-250.0); Testosterone, Total 264.5 ng/dL (264.0-916.0)
== END ==
PROVIDERS: Family Provider Family Medicine; PCP Internal Medicine; Referring Provider Urology; Visit Provider Urology
DX: E29.1 Testicular hypofunction (principal); Z85.46 Personal history of malignant neoplasm of prostate; N52.31 Erectile dysfunction following radical prostatectomy
CPT/HCPCS: 36415; 80076; 84153; 84403; 85014

== ENCOUNTER → 2024-06-03 13:17 | Outpatient (CLI) | payer MEDICARE, SELFPAY ==
[2023-07-15 11:05] VITALS: BMI 31.6
--- NOTE | 2024-06-03 13:19 | DI.RAD.S_ITS ---
PROCEDURE: XR SOFT TISSUE NECK INDICATIONS: Possible foreign body and throat TECHNIQUE: 2 views of the neck were acquired. COMPARISON: None. FINDINGS: Airway: The airway appears patent. Soft tissues: Prevertebral soft tissues are normal in thickness. The epiglottis and aryepiglottic folds appear normal. No soft tissue gas. Bones: No suspicious bony lesions. Visualized cervical spine is normally aligned. IMPRESSION: No visualized radiopaque foreign body. Dictated by: Lis Young M.D. on 06/03/2024 at 14:15 Approved by: Lis Young M.D. on 06/03/2024 at 14:18
== END ==
PROVIDERS: Family Provider Family Medicine; PCP Internal Medicine; Referring Provider Nurse Practitioner Family; Visit Provider Nurse Practitioner Family
DX: T17.208A Unspecified foreign body in pharynx causing other injury, initial encounter (principal)
CPT/HCPCS: 70360

== ENCOUNTER → 2024-06-23 13:23 | Outpatient (CLI) | payer MEDICARE, SELFPAY ==
[2023-07-15 11:05] VITALS: BMI 31.6
[2024-06-23 14:46] LABS: Aspartate Aminotransferase 33 IU/L (17-59); BUN Creatinine Ratio 16.5 (6-22); Blood Urea Nitrogen 21 mg/dL (9-20); Carbon Dioxide 26 mmol/L (22-32); Chloride 105 mmol/L (98-107); Cholesterol 161 mg/dL (140-199); Estimated Glomerular Filt Rate 58 mL/min (>60); Glucose 104 mg/dL (80-110); HDL Cholesterol 49 mg/dL (40-60); HEMOLYSIS 22 (0-50); LDL Cholesterol Calculated 63 mg/dL (<100); Potassium 4.2 mmol/L (3.4-5.1); Sodium 139 mmol/L (137-145); Triglycerides 243 mg/dL (35-150)
[2024-06-23 15:17] LABS: Prostate Specific Antigen 0.141 ng/mL (0.10-4.00)
== END ==
PROVIDERS: Family Provider Family Medicine; PCP Internal Medicine; Referring Provider Radiology Radiation Oncology; Visit Provider Radiology Radiation Oncology
DX: E78.2 Mixed hyperlipidemia (principal); C61 Malignant neoplasm of prostate; Z85.46 Personal history of malignant neoplasm of prostate
CPT/HCPCS: 36415; 80048; 80061; 84153; 84450

== ENCOUNTER → 2024-08-09 10:41 | Outpatient (CLI) | payer MEDICARE, SELFPAY ==
[2023-07-15 11:05] VITALS: BMI 31.6
[2024-08-09 11:09] LABS: Hematocrit 43.3 % (41-53)
[2024-08-09 11:44] LABS: Alanine Aminotransferase 26 IU/L (<50); Albumin 4.3 g/dL (3.5-5.0); Albumin Globulin Ratio 1.7 (1.0-2.8); Alkaline Phosphatase 53 U/L (38-126); Aspartate Aminotransferase 30 IU/L (17-59); BUN Creatinine Ratio 19.6 (6-22); Bilirubin Total 0.7 mg/dL (0.2-1.3); Blood Urea Nitrogen 19 mg/dL (9-20); Calcium 9.5 mg/dL (8.4-10.2); Carbon Dioxide 26 mmol/L (22-32); Chloride 107 mmol/L (98-107); Estimated Glomerular Filt Rate > 60 mL/min (>60); Globulin 2.5 g/dL (1.7-4.1); Glucose 93 mg/dL (80-110); HEMOLYSIS < 15 (0-50); Potassium 4.7 mmol/L (3.4-5.1); Sodium 140 mmol/L (137-145); Total Protein 6.8 g/dL (6.3-8.2)
[2024-08-09 12:10] LABS: Prostate Specific Antigen 0.143 ng/mL (0.10-4.00)
[2024-08-19 12:12] LABS: Percent Free Testosterone 3.29 % (1.50-4.20); Testosterone Free 9.54 ng/dL (5.00-21.00); Testosterone Total 290.1 ng/dL (264.0-916.0)
== END ==
PROVIDERS: Family Provider Family Medicine; PCP Internal Medicine; Referring Provider Urology; Visit Provider Urology
DX: Z85.46 Personal history of malignant neoplasm of prostate (principal); Z87.442 Personal history of urinary calculi
CPT/HCPCS: 36415; 80053; 84153; 84402; 84403; 85014

== ENCOUNTER → 2024-10-17 12:09 | Outpatient (CLI) | payer MEDICARE, SELFPAY ==
[2023-07-15 11:05] VITALS: BMI 31.6
--- NOTE | 2024-10-17 12:10 | DI.MRI.S_ITS ---
PROCEDURE: MR LUMBAR SPINE WO CON INDICATIONS: right lumbar radiculopathy TECHNIQUE: Noncontrast sagittal T1 spin echo and T2 fast echo, sagittal STIR, and T2 fast spin echo through the lumbar spine. In cases with scoliosis, additional coronal T2 fast spin echo may be performed. COMPARISON: [facility], CR, XR LUMBAR SPINE 2-3V, 09/02/2023, 13:23. FINDINGS: Image quality: Excellent The last well-formed disc space is considered as L5-S1. Grade 1 anterolisthesis of L3 on L4, L4 on L5. Mild retrolisthesis of L5 on S1. Vertebral body height of the lumbar spine are well maintained. Mild fibrovascular end plate change at L2-3. Multilevel disc bulge and disc desiccation. Conus terminates at the level of L1-2 and is unremarkable. Right neural foraminal stenosis: Mild at T11-T12. Mild at L3-4, L4-5 and L5-S1. Left neural foraminal stenosis: Mild at T11-T12. Mild at L4-5. Axial images: T11-T12: Mild disc bulge. No central canal stenosis. Mild bilateral facet arthropathy. T12-L1: Mild bilateral facet arthropathy. No central canal stenosis. L1-2: Mild bilateral facet arthropathy. No central canal stenosis. L2-3: Moderate bilateral facet arthropathy. No central canal stenosis. L3-4: Severe bilateral facet arthropathy. Posterior disc uncovering. Mild central canal stenosis. L4-5: Severe bilateral facet arthropathy. Mild disc bulge. Epidural lipomatosis. Mild central canal stenosis. L5-S1: Severe bilateral facet arthropathy. Mild disc bulge. No central canal stenosis. Visualized sacrum is intact. No abdominal aortic aneurysm. 1.8 cm mildly T2 hyperintense lesion in hepatic segment 8, partially visualized (5:1). Bilateral renal cysts, with the largest on the right. IMPRESSION: 1. Multilevel degenerative changes of the lumbar spine, most pronounced at L4-5, where there is mild central canal stenosis and mild bilateral neural foraminal stenosis. 2. Mildly T2 hyperintense lesion in padded segment 8, measuring at least 1.8 cm, partially visualized. Further evaluation with CT or MRI liver protocol can be considered if clinically indicated. Dictated by: Estelle Paula M.D. on 10/17/2024 at 14:22 Approved by: Estelle Paula M.D. on 10/17/2024 at 14:31
== END ==
LOC: MRI 12:09
PROVIDERS: PCP Internal Medicine; Referring Provider Internal Medicine; Visit Provider Internal Medicine
DX: M47.816 Spondylosis without myelopathy or radiculopathy, lumbar region (principal); M47.817 Spondylosis without myelopathy or radiculopathy, lumbosacral region; M48.061 Spinal stenosis, lumbar region without neurogenic claudication; M48.07 Spinal stenosis, lumbosacral region; K76.9 Liver disease, unspecified; N28.1 Cyst of kidney, acquired; M54.50 Low back pain, unspecified; G89.29 Other chronic pain
CPT/HCPCS: 72148

== ENCOUNTER → 2025-02-21 16:25 | Outpatient (CLI) | payer MEDICARE, SELFPAY ==
[2023-07-15 11:05] VITALS: BMI 31.6
[2025-02-21 18:14] LABS: Prostate Specific Antigen 0.153 ng/mL (0.10-4.00)
== END ==
PROVIDERS: Family Provider Internal Medicine; PCP Internal Medicine; Referring Provider Urology; Visit Provider Urology
DX: Z85.46 Personal history of malignant neoplasm of prostate (principal)
CPT/HCPCS: 36415; 84153